=== PATIENT | male | born 1960 | race Caucasian/White ===

== ENCOUNTER 2017-09-04 12:23 | Inpatient (IN) | payer BC, OTHER ==
[2017-09-04] MEDS ORDERED: VANCOMYCIN HCL INJ 1000 MG VIAL IV ONE ×2 (12:50→15:38)
--- NOTE | 2017-09-04 12:51 | ER Document Report ---
ED Medical Screen (RME) - General Chief Complaint: Feet Swelling Stated Complaint: ANKLE SWELLING, STOMACH PAIN Time Seen by Provider: 09/04/17 12:43 Notes: RME DISCLOSURE I have seen this patient as part of a Rapid Medical Evaluation and, if applicable, placed any initially appropriate orders. The patient will be seen and fully evaluated, including a full history and physical exam, by a provider ( in Main ED or Fast Track) when a room becomes available. 57-year-old male here with complaints of bilateral leg swelling ongoing for the past few days as well as his left lower extremity toes turning blue. He states he has put on a significant amount of weight over the past few days but denies any history of CHF or kidney failure. He denies any history of atrial fibrillation but does state that he did have an episode of the toes on his right leg swelling several years ago however there was no cyanosis. His second complaint is redness of his abdomen that has been ongoing and progressively worsening for the past few days. He does not have any drainage from the area. He does have a history of MRSA abdominal infection in 2007 and states it involved his mesh hernia. EXAM Mild cyanosis of left lower extremity toes Moderate induration and erythema of lower abdominal wall without fluctuance TRAVEL OUTSIDE OF THE [place] IN LAST 30 DAYS: No - Related Data Allergies/Adverse Reactions: No Known Allergies Allergy (Unverified 09/04/17 12:47) Past Medical History Skin Medical History: Comment Only Hx MRSA - MRSA 02/10/08 ABDOMEN Physical Exam - Vital signs Vitals: Temp Pulse Resp BP Pulse Ox 98.0 F 82 21 H 146/81 H 92 09/04/17 12:36 09/04/17 12:36 09/04/17 12:36 09/04/17 12:36 09/04/17 12:36 Course - Vital Signs Vital signs: Temp Pulse Resp BP Pulse Ox 98.0 F 82 21 H 146/81 H 92 09/04/17 12:36 09/04/17 12:36 09/04/17 12:36 09/04/17 12:36 09/04/17 12:36
[2017-09-04 13:43] LABS: ABSOLUTE EOSINOPHILS # (AUTO) 0.2 10^3/uL (0.0-0.6); ABSOLUTE LYMPHOCYTES (AUTO) 1.1 10^3/uL (0.5-4.7); ABSOLUTE MONOCYTES (AUTO) 0.8 10^3/uL (0.1-1.4); ABSOLUTE NEUT (AUTO) 5.6 10^3/uL (1.7-8.2); BASOPHILS % (AUTO) 0.6 % (0-2); EOSINOPHILS % (AUTO) 2.6 % (0-6); HEMATOCRIT 45.7 % (37.9-51.0); HEMOGLOBIN 14.7 g/dL (13.5-17.0); LYMPHOCYTES % (AUTO) 14.6 % (13-45); MEAN CORPUSCULAR HEMOGLOBIN 29.1 pg (27.0-33.4); MEAN CORPUSCULAR HGB CONC 32.1 g/dL (32.0-36.0); MEAN CORPUSCULAR VOLUME 91 fl (80-97); MONOCYTES % (AUTO) 10.2 % (3-13); PLATELET COUNT 232 10^3/uL (150-450); RED BLOOD COUNT 5.03 10^6/uL (4.35-5.55); RED CELL DISTRIBUTION WIDTH 15.8 % (11.5-14.0); TOTAL CELLS COUNTED % (AUTO) 100 %; WHITE BLOOD COUNT 7.8 10^3/uL (4.0-10.5)
[2017-09-04 13:58] LABS: ALANINE AMINOTRANSFERASE 67 U/L (21-72); ALBUMIN 3.6 g/dL (3.5-5.0); ALKALINE PHOSPHATASE 57 U/L (38-126); ANION GAP 5 (5-19); ASPARTATE AMINO TRANSFERASE 48 U/L (17-59); BILIRUBIN,DIRECT 0.3 mg/dL (0.0-0.4); BILIRUBIN,TOTAL 0.3 mg/dL (0.2-1.3); BLOOD UREA NITROGEN 32 mg/dL (7-20); CARBON DIOXIDE 38 mmol/L (22-30); CHLORIDE 102 mmol/L (98-107); GLUCOSE 112 mg/dL (75-110); PHOSPHORUS 4.6 mg/dL (2.5-4.5); POTASSIUM 4.7 mmol/L (3.6-5.0); SODIUM 145.3 mmol/L (137-145); TOTAL PROTEIN 6.2 g/dL (6.3-8.2)
--- NOTE | 2017-09-04 14:30 | ER Document Report ---
ED General - General Chief Complaint: Feet Swelling Stated Complaint: ANKLE SWELLING, STOMACH PAIN Time Seen by Provider: 09/04/17 12:43 Notes: The patient is a 57-year-old male who presents with 2 separate complaints. He is concerned that his feet are having increased swelling and look purple over the past few days. In addition, he is having increased redness and pain of his abdominal wall also over the past few days. Patient says that he is having dyspnea on exertion and has had 25 pound weight gain over 2 days. Patient does not have a history of CHF, but he has not seen a doctor in 10 years. Patient denies chest pain, fevers, cough, hemoptysis, calf pain, nausea, vomiting, abdominal pain, numbness, tingling, diarrhea or constipation. TRAVEL OUTSIDE OF THE [place] IN LAST 30 DAYS: No - Related Data Allergies/Adverse Reactions: No Known Allergies Allergy (Unverified 09/04/17 12:47) Past Medical History - General Information source: Patient - Social History Smoking Status: Current Every Day Smoker Chew tobacco use (# tins/day): No Frequency of alcohol use: Occasional Drug Abuse: None Family History: Reviewed & Not Pertinent Patient has suicidal ideation: No Patient has homicidal ideation: No Renal/ Medical History: Denies: Hx Peritoneal Dialysis Skin Medical History: Comment Only Hx MRSA - MRSA 02/10/08 ABDOMEN Review of Systems - Review of Systems Notes: REVIEW OF SYSTEMS: CONSTITUTIONAL: -fevers, -chills EENT: -eye pain, -difficulty swallowing, -nasal congestion CARDIOVASCULAR: -chest pain, -syncope. RESPIRATORY: -cough, +REYES, +orthopnea GASTROINTESTINAL: +abdominal pain, -nausea, -vomiting, -diarrhea GENITOURINARY: -dysuria, -hematuria MUSCULOSKELETAL: +B/L leg pain and swelling, -back pain, -neck pain HEMATOLOGIC: -easy bruising or bleeding. LYMPHATIC: -swollen, enlarged glands. NEUROLOGICAL: -altered mental status or loss of consciousness, -headache, - neurologic symptoms PSYCHIATRIC: -anxiety, -depression. ALL OTHER SYSTEMS REVIEWED AND NEGATIVE. Physical Exam - Vital signs Vitals: Temp Pulse Resp BP Pulse Ox 98.0 F 82 21 H 146/81 H 92 09/04/17 12:36 09/04/17 12:36 09/04/17 12:36 09/04/17 12:36 09/04/17 12:36 - Notes Notes: PHYSICAL EXAMINATION: GENERAL: Uncomfortable. HEAD: Atraumatic, normocephalic. EYES: Pupils equal round and reactive to light, extraocular movements intact, sclera anicteric, conjunctiva are normal. ENT: nares patent, oropharynx clear without exudates. Moist mucous membranes. NECK: Normal range of motion, supple without lymphadenopathy LUNGS: Speaking in full sentences. Mild end-expiratory wheezing. HEART: Regular rate and rhythm without murmurs ABDOMEN: Soft, mild lower abdominal tenderness, normoactive bowel sounds. No guarding, no rebound. No masses appreciated. EXTREMITIES: 3+ pitting edema up to knees. Strong DP and PT pulses in bilateral feet. Mild cyanosis of toes. NEUROLOGICAL: Cranial nerves grossly intact. Normal speech, normal gait. Normal sensory and motor exams. PSYCH: Normal mood, normal affect. SKIN: Erythema over abdominal wall. Course - Re-evaluation Re-evalutation: Pt with abdominal wall cellulitis, but no abscess or intrabadominal abnormalities. Vancomycin started. Pt also appears very fluid overloaded with peripheral edema, dyspnea on exertion, elevated proBNP and cardiomegaly on chest x-ray. No history of CHF, but patient has not seen a doctor in over 10 years. Pt with a first troponin of 0.07, but patient is not having any chest pain and no old values to compare to. Ultrasound by vascular surgery physician does not show any evidence of DVTs or arterial occlusions in his legs. Patient requires admission for IV antibiotics for the abdominal wall cellulitis and further evaluation and treatment of possible new onset CHF. His PMD used to be in [place], [place]. 09/04/17 17:[address] Amalia Marshall (Hospitalist) and she will admit patient to [facility] as Inpatient for further evaluation and treatment. - Vital Signs Vital signs: Temp Pulse Resp BP Pulse Ox 98.0 F 82 21 H 157/89 H 95 09/04/17 12:36 09/04/17 12:36 09/04/17 17:23 09/04/17 15:22 09/04/17 15:22 - Laboratory Result Diagrams: 09/04/17 13:25 09/04/17 13:25 Laboratory results interpreted by me: 09/04/17 09/04/17 09/04/17 13:25 13:25 13:25 RDW 15.8 H Sodium 145.3 H Carbon Dioxide 38 H BUN 32 H Glucose 112 H Phosphorus 4.6 H NT-Pro-B Natriuret Pep 4120 H Total Protein 6.2 L - Diagnostic Test Radiology reviewed: Image reviewed, Reports reviewed Radiology results interpreted by me: CT A/P: DIFFUSE SUBCUTANEOUS STRANDING INVOLVING THE ABDOMINAL PANNUS COMPATIBLE WITH CELLULITIS. NO DRAINABLE FLUID COLLECTION/ABSCESS. LEFT-SIDED NEPHROLITHIASIS WITHOUT LOWER URINARY TRACT STONES OR HYDRONEPHROSIS. CXR: Marked cardiomegaly. NAD - EKG Interpretation by Me EKG shows normal: Sinus rhythm When compared to previous EKG there are: Previous EKG unavailable Additional EKG results interpreted by me: NSR, ventricular bigeminy, RBBB. No STEMI. Discharge - Discharge Clinical Impression: Abdominal wall cellulitis, Dyspnea on exertion, Edema, peripheral Condition: Stable Disposition: ADMITTED INPATIENT Admitting Provider: Hospitalist - Amalia [facility] Unit Admitted: Telemetry
--- NOTE | 2017-09-04 14:47 | RADIOLOGY REPORT (SQ) ---
EXAM DESCRIPTION: CT ABD/PELVIS WITH IV ONLY COMPLETED DATE/TIME: 09/04/2017 2:31 pm REASON FOR STUDY: pannus cellulitis, hx MRSA; eval abscess COMPARISON: None. TECHNIQUE: CT scan of the abdomen and pelvis performed using helical scanning technique with dynamic intravenous contrast injection. No oral contrast. Images reviewed with lung, soft tissue, and bone windows. Reconstructed coronal and sagittal MPR images reviewed. Delayed images for evaluation of the urinary system also acquired. All images stored on PACS. All CT scanners at this facility use dose modulation, iterative reconstruction, and/or weight based d osing when appropriate to reduce radiation dose to as low as reasonably achievable (ALARA). [facility]: Dose Right [facility]: CareDose [facility]: Dose Right [facility]: Teradose 4D [facility]: [employer] CONTRAST TYPE AND DOSE: contrast/concentration: Isovue 370.00 mg/ml; Total Contrast Delivered: 100.0 ml; Total Saline Delivered: 72.1 ml RENAL FUNCTION: Creatinine measures 1.08 RADIATION DOSE: CT Rad equipment meets quality standard of care and radiation dose reduction techniq ues were employed. CTDIvol: 21.1 mGy. DLP: 2479 mGy-cm.. LIMITATIONS: None. FINDINGS: LOWER CHEST: No significant findings. No nodules or infiltrates. LIVER: Normal size. No masses. No dilated ducts. SPLEEN: Normal size. No focal lesions. PANCREAS: No masses. No significant calcifications. No adjacent inflammation or peripancreatic fluid collections. Pancreatic duct not dilated. GALLBLADDER: Surgically absent. ADRENAL GLANDS: No significant masses or asymmetry. RIGHT KIDNEY AND URETER: No solid masses. No significant calcifications. No hydronephrosis or hyd roureter. LEFT KIDNEY AND URETER: No solid masses. Punctate nonobstructing calculi. No hydronephrosis or hy droureter. AORTA AND VESSELS: No aneurysm. No dissection. Renal arteries, SMA, celiac without stenosis. RETROPERITONEUM: No retroperitoneal adenopathy, hemorrhage or masses. BOWEL AND PERITONEAL CAVITY: No masses or inflammatory changes. No free fluid or peritoneal masses. APPENDIX: Not visualized. PELVIS: No mass. No free fluid. Normal bladder. ABDOMINAL WALL: No masses. Diffuse subcutaneous stranding involving the abdominal pannus. No draina ble fluid collection/abscess. Postoperative change related to prior hernia repair without gross comp lication. BONES: No significant or acute findings. OTHER: No other significant finding. IMPRESSION: DIFFUSE SUBCUTANEOUS STRANDING INVOLVING THE ABDOMINAL PANNUS COMPATIBLE WITH CELLULITIS . NO DRAINABLE FLUID COLLECTION/ABSCESS. LEFT-SIDED NEPHROLITHIASIS WITHOUT LOWER URINARY TRACT STONES OR HYDRONEPHROSIS. TECHNICAL DOCUMENTATION: JOB ID: [id number] Quality ID # [id number]: Final reports with documentation of one or more dose reduction techniques (e.g., Au tomated exposure control, adjustment of the mA and/or kV according to patient size, use of iterative reconstruction technique) 2010 [employer]- All Rights Reserved Reading location - IP/workstation name: [email or web address]
[2017-09-04] MEDS ORDERED: IPRATROPIUM/ALBUTEROL 0.5-2.5 MG/3 ML AMPUL NEB ONE (15:17)
[2017-09-04] MEDS ORDERED: FUROSEMIDE INJ/PF 40 MG/4 ML SDV IV ONE (15:37)
--- NOTE | 2017-09-04 16:04 | RADIOLOGY REPORT (SQ) ---
EXAM DESCRIPTION: CHEST SINGLE VIEW COMPLETED DATE/TIME: 09/04/2017 3:56 pm REASON FOR STUDY: cough COMPARISON: 01/20/2007 EXAM PARAMETERS: NUMBER OF VIEWS: One view. TECHNIQUE: Single frontal radiographic view of the chest acquired. RADIATION DOSE: NA LIMITATIONS: None. FINDINGS: LUNGS AND PLEURA: No opacities, masses or pneumothorax. No pleural effusion. MEDIASTINUM AND HILAR STRUCTURES: No masses. Contour normal. HEART AND VASCULAR STRUCTURES: Marked cardiomegaly. Normal vasculature. BONES: No acute findings. HARDWARE: None in the chest. OTHER: No other significant finding. IMPRESSION: NO ACUTE RADIOGRAPHIC FINDING IN THE CHEST. MARKED CARDIOMEGALY TECHNICAL DOCUMENTATION: JOB ID: [id number] [employer]- All Rights Reserved Reading location - IP/workstation name: [email or web address]
--- NOTE | 2017-09-04 17:17 | EKG REPORT ---
SEVERITY:- ABNORMAL ECG - SINUS RHYTHM VENTRICULAR BIGEMINY PROBABLE LEFT ATRIAL ABNORMALITY RIGHT BUNDLE BRANCH BLOCK : Confirmed by: Chelsea Gonzalez 04-Sep-2017 17:16:14
[2017-09-04] MEDS ORDERED: ONDANSETRON 4 MG TAB.RAPDIS PO PRN (18:46)
[2017-09-04] MEDS ORDERED: ACETAMINOPHEN 325 MG TABLET PO PRN (18:46)
[2017-09-04] MEDS ORDERED: ONDANSETRON HCL INJ/PF 4 MG/2 ML SDV IV PRN (18:46)
[2017-09-04] MEDS ORDERED: LOSARTAN POTASSIUM 25 MG TABLET PO ONE (19:00)
--- NOTE | 2017-09-04 19:02 | PDOC H&P ---
History of Present Illness Admission Date/PCP: 09/04/17 17:55 Dr. Dye Patient complains of: Dyspnea, leg swelling History of Present Illness: 57 yr old male with Obesity Asthma Nictine use OPAL not compliant with CPAP Osteoarthritis Outpatient medications: Tylenol, naproxen and ibuprofen as needed for joint pain. He reports having the flu in June and progressively worsening dyspnea, since then, with intermittent exertional chest pressure and recent pedal edema. Denies any fevers chills nausea abdominal pain or vomiting. No chest pain at present. He has also noticed redness of the abdominal wall. He appears to have new onset CHF. CAT scan of the abdomen and pelvis showed diffuse subcutaneous stranding involving the abdominal wall compatible with cellulitis with no drainable fluid or abscess. Lower extremity venous Dopplers showed no DVT. Chest x-ray showed cardiomegaly. He was given IV Lasix and vancomycin in the emergency room and referred for admission. Is a full code. Healthcare power of environmental attorney is his Lindsay. Phone #[phone]. His daughter is Matilde phone #[phone]. Past Medical History Pulmonary Medical History: Reports: Asthma, Bronchitis GI Medical History: Reports: Hiatal Hernia Social History Information Source: Patient Smoking Status: Current Every Day Smoker Frequency of Alcohol Use: Occasional Hx Recreational Drug Use: No Family History Family History: Hypertension Parental Family History Reviewed: Yes Children Family History Reviewed: Yes Sibling(s) Family History Reviewed.: Yes Medication/Allergy Home Medications: No Home Medications 09/04/17 Allergies/Adverse Reactions: No Known Allergies Allergy (Unverified 09/04/17 12:47) Review of Systems Constitutional: ABSENT: fever(s) Eyes: ABSENT: visual disturbances Ears: ABSENT: hearing changes Nose, Mouth, and Throat: ABSENT: mouth pain Cardiovascular: PRESENT: dyspnea on exertion, edema Respiratory: PRESENT: dyspnea Gastrointestinal: ABSENT: abdominal pain, diarrhea Genitourinary: ABSENT: dysuria Musculoskeletal: ABSENT: deformity Integumentary: ABSENT: pruritus Neurological: ABSENT: focal weakness Psychiatric: ABSENT: hallucinations Endocrine: ABSENT: heat intolerance Hematologic/Lymphatic: ABSENT: easy bruising Allergic/Immunologic: ABSENT: seasonal rhinorrhea Physical Exam Vital Signs: Temp Pulse Resp BP Pulse Ox 98.0 F 82 21 H 157/89 H 95 09/04/17 12:36 09/04/17 12:36 09/04/17 17:23 09/04/17 15:22 09/04/17 15:22 General appearance: PRESENT: obese Head exam: PRESENT: normocephalic Eye exam: PRESENT: PERRLA. ABSENT: scleral icterus Ear exam: PRESENT: normal external ear exam Mouth exam: PRESENT: moist Neck exam: ABSENT: carotid bruit Respiratory exam: PRESENT: rhonchi, symmetrical. ABSENT: crackles Cardiovascular exam: PRESENT: RRR GI/Abdominal exam: PRESENT: normal bowel sounds, soft, other - diffuse abdominal wall erythema and mild induration Rectal exam: PRESENT: deferred Extremities exam: PRESENT: pedal edema. ABSENT: calf tenderness Neurological exam: PRESENT: alert, awake, oriented to person, oriented to place , oriented to time Psychiatric exam: PRESENT: appropriate affect Skin exam: ABSENT: rash Results Impressions: Abdomen/Pelvis CT 09/04/17 12:49 IMPRESSION: DIFFUSE SUBCUTANEOUS STRANDING INVOLVING THE ABDOMINAL PANNUS COMPATIBLE WITH CELLULITIS. NO DRAINABLE FLUID COLLECTION/ABSCESS. LEFT-SIDED NEPHROLITHIASIS WITHOUT LOWER URINARY TRACT STONES OR HYDRONEPHROSIS. Chest X-Ray 09/04/17 15:23 IMPRESSION: NO ACUTE RADIOGRAPHIC FINDING IN THE CHEST. MARKED CARDIOMEGALY Assessment & Plan - Diagnosis (1) Acute CHF Qualifiers: Heart failure type: systolic Qualified Code(s): I50.21 - Acute systolic ( congestive) heart failure Is this a current diagnosis for this admission?: Yes Plan: Check echocardiogram. Monitor intake and output. IV Lasix. Start losartan. Monitor on telemetry. Serial Cardiac enzymes. Aspirin. Check lipid panel and hemoglobin A1c. (2) Abdominal wall cellulitis Is this a current diagnosis for this admission?: Yes Plan: Ancef IV (3) OPAL (obstructive sleep apnea) Is this a current diagnosis for this admission?: Yes Plan: CPAP at night (4) Nicotine dependence Is this a current diagnosis for this admission?: Yes Plan: Nicotine patch prn (5) DVT prophylaxis Is this a current diagnosis for this admission?: Yes Plan: Subcutaneous Lovenox - Time Time Spent: Greater than 70 Minutes
[2017-09-04] MEDS: TRAMADOL HCL 50 MG TABLET PO PRN (22:11)
[2017-09-04] MEDS: FUROSEMIDE INJ/PF 100 MG/10 ML SDV IV SCH (22:15)
[2017-09-04] MEDS: CEFAZOLIN 1 GM/D5W RTU 1 GM/50 ML RTUPB IV SCH (22:16)
[2017-09-05] MEDS: LEVALBUTEROL HCL NEB 0.63 MG/3 ML AMPUL NEB PRN ×2 (04:45→15:31)
[2017-09-05] MEDS: CEFAZOLIN 1 GM/D5W RTU 1 GM/50 ML RTUPB IV SCH ×3 (05:28→21:28)
[2017-09-05 06:36] LABS: BLOOD UREA NITROGEN 26 mg/dL (7-20); CALCIUM 8.9 mg/dL (8.4-10.2); CHLORIDE 98 mmol/L (98-107); CHOLESTEROL 120.43 mg/dL (0-200); GLUCOSE 115 mg/dL (75-110); PHOSPHORUS 5.5 mg/dL (2.5-4.5); POTASSIUM 4.4 mmol/L (3.6-5.0); SODIUM 143.2 mmol/L (137-145); TRIGLYCERIDES 145 mg/dL (<150)
[2017-09-05 06:42] LABS: ANION GAP 7 (5-19); CARBON DIOXIDE 38 mmol/L (22-30); INTERNATIONAL RATION (INR) 0.95; PROTHROMBIN TIME 13.1 SEC (11.4-15.4)
[2017-09-05 06:46] LABS: DIRECT LDL 41 mg/dL (<100)
--- NOTE | 2017-09-05 10:25 | XCELERA REPORT ---
[address] [address] Lower Extremity Venous Evaluation Name: GAIL BOYER Age: 57 yrs Gender: Male : 1960 Patient Status: Emergency Patient Location: ER Study Date: 09/04/2017 04:37 PM Procedure: Color flow and duplex imaging bilaterally of the veins of the lower extremities as well as the Common Femoral veins. Reason For Study: BLE swelling; eval DVT Ordering Physician: MUSA NICOLAS Performed By: Azalia Castaneda Right Sided Venous Evaluation Parts of the Femoral vein not well seen, due to body habitus. Normal vessel filling wall to wall, compression and augmentation as well as Colour flow down to the infrageniculate veins. Left Sided Venous Evaluation Parts of the Femoral vein not well seen, due to body habitus. Normal vessel filling wall to wall, compression and augmentation as well as Colour flow down to the infrageniculate veins. Interpretation Summary No duplex evidence of DVT or obstruction in the bilateral lower extremities. : MUSA NICOLAS [place]
--- NOTE | 2017-09-05 10:27 | XCELERA REPORT ---
[address] [address] Lower Extremity Arterial Evaluation Name: GAIL BOYER Age: 57 yrs Gender: Male : 1960 Patient Status: Emergency Patient Location: ER Study Date: 09/04/2017 04:59 PM Procedure: A color flow and duplex scan of the lower extremity arteries was performed bilaterally with velocity and waveform anaylsis. Reason For Study: LLE cyanosis; eval thrombus Ordering Physician: MUSA NICOLAS Performed By: Azalia Castaneda Measurements and Calculations Right Left FORMING YARDAGE CONTROL OPERATOR PSV 124.1 132.4 cm/sec Prox PFA PSV -124.1 116.1 cm/sec Prox SFA PSV 146.9 173.7 cm/sec Mid SFA PSV -139.1 -113.1 cm/sec Prox Pop A PSV 86.0 88.0 cm/sec Dist ALBERT PSV 45.3 35.2 cm/sec Dist CONTENT STRATEGY LEAD PSV 103.1 -100.6 cm/sec Kelechi Pedis PSV 53.4 71.3 cm/sec Right Side Arterial Evaluation Normal velocity and triphasic waveforms noted from the Common Femoral artery to the infrageniculate vessels. 0 % stenosis . Ankle Brachial index was not evaluated. Left Side Arterial Evaluation Normal velocity and triphasic waveforms noted from the Common Femoral artery to the infrageniculate vessels. Retrograde flow in the Dorsalis Pedis. 0 % stenosis . Ankle Brachial index was not evaluated. Interpretation Summary No hemodynamically significant lesions in the bilateral lower extremities, on duplex imaging, at rest. : MUSA NICOLAS [place]
[2017-09-05] MEDS: FUROSEMIDE INJ/PF 100 MG/10 ML SDV IV SCH ×2 (10:57→21:29)
[2017-09-05] MEDS: LACTOBACILLUS ACIDOPHILUS 250 MG TAB PO SCH ×2 (10:57→18:34)
[2017-09-05] MEDS: LOSARTAN POTASSIUM 25 MG TABLET PO SCH (10:57)
[2017-09-05] MEDS: ENOXAPARIN SODIUM INJ 30 MG/0.3 ML DISP.SYRIN SUBCUT SCH (10:57)
--- NOTE | 2017-09-05 11:28 | PDOC CONSULTATION ---
Consultation Consult Date: 09/04/17 Attending physician:: LOBITO BETH Consult reason:: CHF History of Present Illness Admission Date/PCP: 09/04/17 17:55 Patient complains of: Shortness of breath, progressive leg edema and also redness of the abdominal wall History of Present Illness: GAIL BOYER is a 57 year old male who presents with 2 separate complaints. He is concerned that his feet are having increased swelling and look purple over the past few days. In addition, he is having increased redness and pain of his abdominal wall also over the past few days. Patient says that he is having dyspnea on exertion and has had 25 pound weight gain over 2 days. Patient does not have a history of CHF, but he has not seen a doctor in 10 years. Patient denies chest pain, fevers, cough, hemoptysis, calf pain, nausea , vomiting, abdominal pain, numbness, tingling, diarrhea or constipation. This history obtained by the ER physician was reviewed and confirmed. Patient claims that his symptoms started several weeks ago with progressive leg swelling, shortness of breath. He however denied any chest pain. More recently his symptoms has worsened. Also over the last 2 days, he has noted some abdominal discomfort and redness as well as pain over his abdominal wall. Patient has noted some low-grade fever. Patient has history of sleep apnea syndrome. He claims that he had severe obstructive sleep apnea but could not afford therapy as he lost insurance. Patient has also noted some progressive weight gain. Past Medical History Pulmonary Medical History: Reports: Asthma, Bronchitis GI Medical History: Reports: Hiatal Hernia Social History Information Source: Patient Smoking Status: Current Every Day Smoker Frequency of Alcohol Use: Occasional Hx Recreational Drug Use: No - Advance Directive Resuscitation Status: Full Code Surrogate healthcare decision maker:: Patient's is the surrogate decision-maker Family History Family History: Hypertension Parental Family History Reviewed: Yes Children Family History Reviewed: Yes Sibling(s) Family History Reviewed.: Yes Medication/Allergy Home Medications: No Home Medications 09/04/17 Allergies/Adverse Reactions: No Known Allergies Allergy (Unverified 09/04/17 12:47) Review of Systems Review of Systems: Please see history of present illness and past medical history as wall. Constitutional: Low-grade fever or chills reported. Head : No recent chronic headaches, recent head injury. Eyes: No recent eye pain, diplopia, redness, discharge, acute visual changes. Ears: No recent chronic ear pain, acute hearing loss, ear discharge. Oral cavity: No recent ulcerations, bleeding, oral cavity discomfort. Neck: No recent acute neck pain reported. Hematologic: No recent easy bruising or bleeding. Lymphatic: No recent lymph node enlargement reported. Cardiovascular system review: See history of present illness. Respiratory system review: Patient has noted some cough especially on laying down, waking up gasping for breath, no hemoptysis or blood clots in the lungs reported. Shortness of breath on exertion Gastrointestinal system review: Negative for any recent acute hematemesis, melena. Abdominal pain reported as noted above. Genitourinary system review: No recent acute or chronic hematuria, flank pain, UTI etc. reported. Skin system review: Negative for any recent abnormal bruising, no rash, no pruritus reported. Neurologic: No prior history of strokes, mini strokes, seizure disorder. Psychologic: No history of major psychosis or major depression reported. Musculoskeletal: Minor aches and pains reported. No acute joint swelling reported. Endocrine: No recent polyuria, polydipsia, recent heat or cold intolerance. Physical Exam Vital Signs: Temp Pulse Resp BP Pulse Ox 98.0 F 82 21 H 157/89 H 95 09/04/17 12:36 09/04/17 12:36 09/04/17 17:23 09/04/17 15:22 09/04/17 15:22 Exam: GENERAL: well-nourished and in no acute distress. Alert and oriented x3 HEAD: Atraumatic, normocephalic. EYES: Pupils equal round and reactive to light, extraocular movements intact, sclera anicteric, conjunctiva are normal. ENT: TMs normal, nares patent, oropharynx clear without exudates. Moist mucous membranes. No oral ulcerations or bleeding gums noted NECK: supple without lymphadenopathy. Trachea is central. No cervical or axillary lymphadenopathy noted. Carotids are 2+, JVD distended, could not be accurately assessed because of thick neck. LUNGS: Respiration seems nonlabored, no significant accessory muscle action noted. Bibasilar fine crackles are noted. No wheezes rales or rhonchi noted. No significant dullness noted on percussion. CHEST: Palpation of the chest wall shows no significant chest wall tenderness. HEART: [place] [employer], No PSH, 1/6 PRAVIN aortic area, 1/6 pedraza systolic murmur mitral area, no rubs, no gallops. ABDOMEN: Soft, no significant tenderness appreciated, normoactive bowel sounds. No guarding, no rebound. No rigidity noted . No masses appreciated. EXTREMITIES: Pedal pulses are 1-2+, no calf tenderness noted. No clubbing or cyanosis. 2+ pedal edema noted NEUROLOGICAL: Focused neurological exam showed no significant neurologic deficit. Normal speech, no focal weakness appreciated. PSYCH: Normal mood, normal affect. Judgment and insight within normal limits. SKIN: No significant ecchymosis, skin is noted to be warm. Erythematous rash noted over the abdominal wall consistent with cellulitis. MUSCULOSKELETAL EXAM: No significant acute joint swelling noted. Results EKG Comments: Sinus rhythm, frequent ventricular ectopy, minor nonspecific ST-T wave changes Impressions: Abdomen/Pelvis CT 09/04/17 12:49 IMPRESSION: DIFFUSE SUBCUTANEOUS STRANDING INVOLVING THE ABDOMINAL PANNUS COMPATIBLE WITH CELLULITIS. NO DRAINABLE FLUID COLLECTION/ABSCESS. LEFT-SIDED NEPHROLITHIASIS WITHOUT LOWER URINARY TRACT STONES OR HYDRONEPHROSIS. Chest X-Ray 09/04/17 15:23 IMPRESSION: NO ACUTE RADIOGRAPHIC FINDING IN THE CHEST. MARKED CARDIOMEGALY Assessment & Plan - Diagnosis (1) Congestive heart failure (CHF) Qualifiers: Heart failure type: unspecified Heart failure chronicity: acute on chronic Qualified Code(s): I50.9 - Heart failure, unspecified Is this a current diagnosis for this admission?: Yes (2) Abdominal wall cellulitis Is this a current diagnosis for this admission?: Yes (3) Dyspnea on exertion Is this a current diagnosis for this admission?: Yes (4) Edema, peripheral Is this a current diagnosis for this admission?: Yes (5) OPAL (obstructive sleep apnea) Is this a current diagnosis for this admission?: Yes (6) Obesity Qualifiers: Obesity type: unspecified obesity type Obesity classification: unspecified obesity classification Is this a current diagnosis for this admission?: Yes - Notes Notes: Congestive heart failure: Seems predominantly right-sided. This is based on chest x-ray and CT scan reviewed. At this point agree with IV diuretics. Recommend 2D echocardiogram. Although chest x-ray shows suggestion that patient may have pericardial effusion, abdominal CT which did show a portion of the heart does not suggest pericardial effusion being present. Agree with diuretic therapy, salt and fluid restriction, positive pressure noninvasive ventilation. May also consider arterial blood gases. Abdominal wall cellulitis: Continue with antibiotic therapy. Dyspnea on exertion: Related to CHF, patient may have underlying COPD, obesity also contributing. Pedal edema: Most likely related to CHF with some venous insufficiency and dependency contributing. Obstructive sleep apnea: Patient felt to have severe obstructive sleep apnea. Nightly CPAP therapy was ordered yesterday. Will try to obtain previous sleep apnea evaluation results. Obesity: Patient noted to have superobesity. Patient will benefit from aggressive weight loss. Discussed that weight loss will help multitudes of his problem - Time Time Spent: 30 to 50 Minutes Medications reviewed and adjusted accordingly: Yes
[2017-09-05 15:08] LABS: ARTERIAL BLOOD BASE EXCESS 12.7 mmol/L; ARTERIAL BLOOD HCO3 46.2 mmol/L (20-26); ARTERIAL BLOOD O2 SATURATION 66.2 % (94-98); ARTERIAL BLOOD PH 7.22 (7.35-7.45); ARTERIAL BLOOD PO2 43.8 mmHg (80-100); ARTERIAL BLOOD TOTAL CO2 49.8 mmol/L (23-27)
[2017-09-05 15:13] LABS: ARTERIAL BLOOD FIO2 6L
[2017-09-05 15:14] LABS: ARTERIAL BLOOD PCO2 116.3 mmHg (35-45)
[2017-09-05] MEDS ORDERED: MAGNESIUM SULFATE/D5W 1 GM/100 ML RTUPB IV ONE (17:00)
--- NOTE | 2017-09-05 17:11 | PDOC PROGRESS REPORT ---
Subjective Progress Note for:: 09/05/17 Subjective:: Very somnolent and difficult to arouse with peripheral cyanosis. ABG shows resp acidosis. BiPAP started at 3 :30 pm. Repeat ABG pending. Echo pending. Suspect pulmonary hypertension Reason For Visit: NEW ONSET CHF, ABDOMINAL WALL CELLULITIS Physical Exam Vital Signs: Temp Pulse Resp BP Pulse Ox 97.6 F 62 16 132/54 H 94 09/05/17 07:48 09/05/17 07:48 09/05/17 07:48 09/05/17 07:48 09/05/17 07:48 Intake & Output 09/04/17 09/05/17 09/06/17 06:59 06:59 06:59 Intake Total 800 Output Total 2500 Balance -1700 Weight 166 kg General appearance: PRESENT: morbidly obese Head exam: PRESENT: normocephalic Neck exam: PRESENT: JVD Respiratory exam: PRESENT: prolonged expiratory phas, symmetrical. ABSENT: crackles Cardiovascular exam: PRESENT: RRR GI/Abdominal exam: PRESENT: normal bowel sounds, soft. ABSENT: tenderness Rectal exam: PRESENT: deferred Extremities exam: PRESENT: pedal edema. ABSENT: calf tenderness Neurological exam: PRESENT: altered Psychiatric exam: PRESENT: other - unable to assess Skin exam: PRESENT: other - abdominal wall cellulitis improving Results Laboratory Results: 09/05/17 06:08 09/05/17 09/05/17 09/05/17 06:08 06:08 14:48 Carbonic Acid 3.50 H HCO3/H2CO3 Ratio 13:1 ABG pH 7.22 L ABG pCO2 116.3 H* ABG pO2 43.8 L ABG HCO3 46.2 H ABG O2 Saturation 66.2 L ABG Base Excess 12.7 FiO2 6L Sodium 143.2 Potassium 4.4 Chloride 98 Carbon Dioxide 38 H Anion Gap 7 BUN 26 H Creatinine 0.94 Est GFR ( Amer) > 60 Est GFR (Non-Af Amer) > 60 Glucose 115 H Calcium 8.9 Phosphorus 5.5 H Magnesium 1.8 Triglycerides 145 Cholesterol 120.43 LDL Cholesterol Direct 41 VLDL Cholesterol 29.0 HDL Cholesterol 42 TSH 1.29 09/04/17 09/04/17 09/05/17 23:48 23:48 06:08 Creatine Kinase 110 104 Troponin I 0.069 NT-Pro-B Natriuret Pep 09/05/17 09/05/17 09/05/17 06:08 06:08 11:43 Creatine Kinase 84 Troponin I 0.060 NT-Pro-B Natriuret Pep 3770 H 09/05/17 11:43 Creatine Kinase Troponin I 0.047 NT-Pro-B Natriuret Pep Impressions: Abdomen/Pelvis CT 09/04/17 12:49 IMPRESSION: DIFFUSE SUBCUTANEOUS STRANDING INVOLVING THE ABDOMINAL PANNUS COMPATIBLE WITH CELLULITIS. NO DRAINABLE FLUID COLLECTION/ABSCESS. LEFT-SIDED NEPHROLITHIASIS WITHOUT LOWER URINARY TRACT STONES OR HYDRONEPHROSIS. Chest X-Ray 09/04/17 15:23 IMPRESSION: NO ACUTE RADIOGRAPHIC FINDING IN THE CHEST. MARKED CARDIOMEGALY Assessment & Plan - Diagnosis (1) Acute hypercapnic respiratory failure Is this a current diagnosis for this admission?: Yes Plan: BiPAP, monitor ABG (2) Acute CHF Qualifiers: Heart failure type: right-sided Qualified Code(s): I50.811 - Acute right heart failure Is this a current diagnosis for this admission?: Yes Plan: Echocardiogram pending Monitor intake and output. Continue IV Lasix and losartan. Monitor on telemetry. Serial Cardiac enzymes. Aspirin. Check lipid panel and hemoglobin A1c. cardiology input appreciated (3) Abdominal wall cellulitis Is this a current diagnosis for this admission?: Yes Plan: Day 2 of Ancef IV (4) OPAL (obstructive sleep apnea) Is this a current diagnosis for this admission?: Yes Plan: On BiPAP (5) Nicotine dependence Is this a current diagnosis for this admission?: Yes Plan: Nicotine patch prn (6) DVT prophylaxis Is this a current diagnosis for this admission?: Yes Plan: Subcutaneous Lovenox - Time Time Spent with patient: 35 or more minutes
[2017-09-05] MEDS ORDERED: ROFLUMILAST 500 MCG TABLET PO ONE (17:45)
[2017-09-05 18:10] LABS: ARTERIAL BLOOD BASE EXCESS 8.6 mmol/L; ARTERIAL BLOOD H2CO3 2.67 mmol/L (1.05-1.35); ARTERIAL BLOOD HCO3 39.3 mmol/L (20-26); ARTERIAL BLOOD O2 SATURATION 93.5 % (94-98); ARTERIAL BLOOD PH 7.27 (7.35-7.45); ARTERIAL BLOOD PO2 80.5 mmHg (80-100)
[2017-09-05 18:11] LABS: ARTERIAL BLOOD FIO2 40%
[2017-09-05 18:19] LABS: ARTERIAL BLOOD PCO2 88.6 mmHg (35-45)
[2017-09-05] MEDS: MAGNESIUM OXIDE 400 MG TABLET PO SCH (18:34)
[2017-09-05] MEDS: BUDESONIDE NEB 0.5 MG/2 ML AMPUL NEB SCH (21:52)
[2017-09-05 22:41] LABS: ARTERIAL BLOOD BASE EXCESS 10.1 mmol/L; ARTERIAL BLOOD FIO2 40%; ARTERIAL BLOOD H2CO3 2.82 mmol/L (1.05-1.35); ARTERIAL BLOOD HCO3 41.3 mmol/L (20-26); ARTERIAL BLOOD O2 SATURATION 94.7 % (94-98); ARTERIAL BLOOD PH 7.26 (7.35-7.45); ARTERIAL BLOOD PO2 87.8 mmHg (80-100); ARTERIAL BLOOD TOTAL CO2 44.2 mmol/L (23-27)
[2017-09-05 22:43] LABS: ARTERIAL BLOOD PCO2 93.8 mmHg (35-45)
[2017-09-06] MEDS: CEFAZOLIN 1 GM/D5W RTU 1 GM/50 ML RTUPB IV SCH ×2 (05:10→13:51)
[2017-09-06 06:17] LABS: ARTERIAL BLOOD BASE EXCESS 3.5 mmol/L; ARTERIAL BLOOD H2CO3 2.13 mmol/L (1.05-1.35); ARTERIAL BLOOD HCO3 32.7 mmol/L (20-26); ARTERIAL BLOOD O2 SATURATION 70.8 % (94-98); ARTERIAL BLOOD PH 7.28 (7.35-7.45); ARTERIAL BLOOD PO2 42.7 mmHg (80-100); ARTERIAL BLOOD TOTAL CO2 34.8 mmol/L (23-27)
[2017-09-06 06:18] LABS: ARTERIAL BLOOD FIO2 30%
[2017-09-06 06:31] LABS: BLOOD UREA NITROGEN 30 mg/dL (7-20); CALCIUM 8.8 mg/dL (8.4-10.2); CHLORIDE 96 mmol/L (98-107); GLUCOSE 117 mg/dL (75-110); POTASSIUM 4.6 mmol/L (3.6-5.0); SODIUM 143.4 mmol/L (137-145)
[2017-09-06 06:34] LABS: ARTERIAL BLOOD PCO2 70.6 mmHg (35-45)
[2017-09-06 06:38] LABS: ANION GAP 8 (5-19); CARBON DIOXIDE 39 mmol/L (22-30)
[2017-09-06] MEDS: BUDESONIDE NEB 0.5 MG/2 ML AMPUL NEB SCH ×2 (08:19→20:39)
[2017-09-06] MEDS: LACTOBACILLUS ACIDOPHILUS 250 MG TAB PO SCH ×2 (09:27→17:32)
[2017-09-06] MEDS: MAGNESIUM OXIDE 400 MG TABLET PO SCH ×2 (09:28→17:33)
[2017-09-06] MEDS: LOSARTAN POTASSIUM 25 MG TABLET PO SCH (09:28)
[2017-09-06] MEDS: ENOXAPARIN SODIUM INJ 30 MG/0.3 ML DISP.SYRIN SUBCUT SCH (09:29)
[2017-09-06] MEDS: FUROSEMIDE INJ/PF 100 MG/10 ML SDV IV SCH ×2 (09:29→21:16)
[2017-09-06 10:10] LABS: PHOSPHORUS 4.8 mg/dL (2.5-4.5)
[2017-09-06] MEDS: TRAMADOL HCL 50 MG TABLET PO PRN (10:57)
--- NOTE | 2017-09-06 12:00 | PDOC PROGRESS REPORT ---
Subjective Progress Note for:: 09/05/17 Subjective:: Still dysneic but better. Patient seems to be doing better with gradual improvement. Pt is denying any chest arm or neck discomfort. Patient denying any PND, orthopnea. Patient denied any sustained palpitations, dizziness, syncope, near syncope. Patient denying any fever chills. Patient denying any other significant discomfort. Patient is maintaining sinus rhythm. Review of systems: Rest review of systems negative. Medications: Medications have been reviewed. Reason For Visit: NEW ONSET CHF, ABDOMINAL WALL CELLULITIS Physical Exam Vital Signs: Temp Pulse Resp BP Pulse Ox 98.6 F 92 18 131/49 H 96 09/05/17 19:31 09/05/17 21:52 09/05/17 21:52 09/05/17 19:31 09/05/17 21:52 Pulse Oximeter Continuous Start: 09/05/17 17: 15 Freq: RTQ4 Status: Active Document 09/05/17 21:52 [facility] (Rec: 09/05/17 23:44 [facility] [id number]) Pulse Oximetry Assessment Oxygen Saturation (92-100) 96 Oxygen Delivery Method AVAP Fraction of Inspired Oxygen (FIO2) 30 Equipment Usage Equipment in Use Continuous Pulse Oximeter 24 Hour Charge Charge Now Continuous SpO2 Machine # [id number] Intake & Output 09/04/17 09/05/17 09/06/17 06:59 06:59 06:59 Intake Total 800 1879 Output Total 2500 Balance -1700 1879 Weight 166 kg Exam: GENERAL: well-nourished and in no acute distress. Alert and oriented x3 HEAD: Atraumatic, normocephalic. EYES: Pupils equal round and reactive to light, extraocular movements intact, sclera anicteric, conjunctiva are normal. ENT: TMs normal, nares patent, oropharynx clear without exudates. Moist mucous membranes. No oral ulcerations or bleeding gums noted NECK: supple without lymphadenopathy. Trachea is central. No cervical or axillary lymphadenopathy noted. Carotids are 2+, JVD 10 cm LUNGS: Respiration seems nonlabored, no significant accessory muscle action noted. Bibasilar fine crackles noted. No wheezes rales or rhonchi noted. No significant dullness noted on percussion. CHEST: Palpation of the chest wall shows no significant chest wall tenderness. HEART: [place] [employer], No PSH, 1/6 PRAVIN aortic area, 1/6 pedraza systolic murmur mitral area, no rubs, no gallops. ABDOMEN: Soft, no significant tenderness appreciated, normoactive bowel sounds. No guarding, no rebound. No rigidity noted . No masses appreciated. Cellulitis findings noted. EXTREMITIES: Pedal pulses are 1-2+, no calf tenderness noted. No clubbing or cyanosis. 2+ pedal edema noted NEUROLOGICAL: Focused neurological exam showed no significant neurologic deficit. Normal speech, no focal weakness appreciated. PSYCH: Normal mood, normal affect. Judgment and insight within normal limits. SKIN: No significant ecchymosis, skin is noted to be warm. Cellulitis noted of the abdominal wall. MUSCULOSKELETAL EXAM: No significant acute joint swelling noted. Results Laboratory Results: 09/05/17 06:08 09/05/17 09/05/17 09/05/17 06:08 06:08 14:48 Carbonic Acid 3.50 H HCO3/H2CO3 Ratio 13:1 ABG pH 7.22 L ABG pCO2 116.3 H* ABG pO2 43.8 L ABG HCO3 46.2 H ABG O2 Saturation 66.2 L ABG Base Excess 12.7 FiO2 6L Sodium 143.2 Potassium 4.4 Chloride 98 Carbon Dioxide 38 H Anion Gap 7 BUN 26 H Creatinine 0.94 Est GFR ( Amer) > 60 Est GFR (Non-Af Amer) > 60 Glucose 115 H Calcium 8.9 Phosphorus 5.5 H Magnesium 1.8 Triglycerides 145 Cholesterol 120.43 LDL Cholesterol Direct 41 VLDL Cholesterol 29.0 HDL Cholesterol 42 TSH 1.29 09/05/17 09/05/17 17:40 21:50 Carbonic Acid 2.67 H 2.82 H HCO3/H2CO3 Ratio 14:1 14:1 ABG pH 7.27 L 7.26 L ABG pCO2 88.6 H* 93.8 H* ABG pO2 80.5 87.8 ABG HCO3 39.3 H 41.3 H ABG O2 Saturation 93.5 L 94.7 ABG Base Excess 8.6 10.1 FiO2 40% 40% Sodium Potassium Chloride Carbon Dioxide Anion Gap BUN Creatinine Est GFR ( Amer) Est GFR (Non-Af Amer) Glucose Calcium Phosphorus Magnesium Triglycerides Cholesterol LDL Cholesterol Direct VLDL Cholesterol HDL Cholesterol TSH 09/04/17 09/04/17 09/05/17 23:48 23:48 06:08 Creatine Kinase 110 104 Troponin I 0.069 NT-Pro-B Natriuret Pep 09/05/17 09/05/17 09/05/17 06:08 06:08 11:43 Creatine Kinase 84 Troponin I 0.060 NT-Pro-B Natriuret Pep 3770 H 09/05/17 11:43 Creatine Kinase Troponin I 0.047 NT-Pro-B Natriuret Pep Impressions: Abdomen/Pelvis CT 09/04/17 12:49 IMPRESSION: DIFFUSE SUBCUTANEOUS STRANDING INVOLVING THE ABDOMINAL PANNUS COMPATIBLE WITH CELLULITIS. NO DRAINABLE FLUID COLLECTION/ABSCESS. LEFT-SIDED NEPHROLITHIASIS WITHOUT LOWER URINARY TRACT STONES OR HYDRONEPHROSIS. Chest X-Ray 09/04/17 15:23 IMPRESSION: NO ACUTE RADIOGRAPHIC FINDING IN THE CHEST. MARKED CARDIOMEGALY Assessment & Plan - Diagnosis (1) Congestive heart failure (CHF) Qualifiers: Heart failure type: unspecified Heart failure chronicity: acute on chronic Qualified Code(s): I50.9 - Heart failure, unspecified Is this a current diagnosis for this admission?: Yes (2) Abdominal wall cellulitis Is this a current diagnosis for this admission?: Yes (3) Dyspnea on exertion Is this a current diagnosis for this admission?: Yes (4) Edema, peripheral Is this a current diagnosis for this admission?: Yes (5) OPAL (obstructive sleep apnea) Is this a current diagnosis for this admission?: Yes (6) Obesity Qualifiers: Obesity type: unspecified obesity type Obesity classification: unspecified obesity classification Is this a current diagnosis for this admission?: Yes - Notes Notes: He still has significant fluid overload. Continue with IV diuretic therapy. 2D echocardiogram still pending. Patient will benefit from continued nightly CPAP/BiPAP therapy. Patient will also benefit from significant weight loss. Congestive heart failure: Seems predominantly right-sided. This is based on chest x-ray and CT scan reviewed. At this point agree with IV diuretics. Recommend 2D echocardiogram. Although chest x-ray shows suggestion that patient may have pericardial effusion, abdominal CT which did show a portion of the heart does not suggest pericardial effusion being present. Agree with diuretic therapy, salt and fluid restriction, positive pressure noninvasive ventilation. May also consider arterial blood gases. Abdominal wall cellulitis: Continue with antibiotic therapy. Dyspnea on exertion: Related to CHF, patient may have underlying COPD, obesity also contributing. Pedal edema: Most likely related to CHF with some venous insufficiency and dependency contributing. Obstructive sleep apnea: Patient felt to have severe obstructive sleep apnea. Continue with nightly CPAP therapy. Will try to obtain previous sleep apnea evaluation results. Obesity: Patient noted to have superobesity. Patient will benefit from aggressive weight loss. Discussed that weight loss will help multitudes of his problem - Time Time with patient: Greater than 35 minutes - CODE STATUS was discussed, patient remains full code. Surrogate decision-maker unchanged. Multiple medical problems were addressed. More than 50% of the time spent coordinating care, discussing management plans with involved caregivers. Management plans discussed with involved personnels. Medical decision making was of moderate to high complexity, patient's has multiple comorbidities. Medications reviewed and adjusted accordingly: Yes
--- NOTE | 2017-09-06 12:02 | PDOC PROGRESS REPORT ---
Subjective Progress Note for:: 09/06/17 Subjective:: Still dysneic but better. Still has significant generalized edema. Patient seems to be doing better with gradual improvement. Pt is denying any chest arm or neck discomfort. Patient denying any PND, orthopnea. Patient denied any sustained palpitations, dizziness, syncope, near syncope. Patient denying any fever chills. Patient denying any other significant discomfort. Patient is maintaining sinus rhythm. Review of systems: Rest review of systems negative. Medications: Medications have been reviewed. Reason For Visit: NEW ONSET CHF, ABDOMINAL WALL CELLULITIS Physical Exam Vital Signs: Temp Pulse Resp BP Pulse Ox 98.3 F 84 12 153/82 H 89 L 09/06/17 11:27 09/06/17 11:27 09/06/17 11:27 09/06/17 11:27 09/06/17 11:27 Pulse Oximeter Continuous Start: 09/05/17 17: 15 Freq: RTQ4 Status: Active Document 09/06/17 08:18 [facility] [place] (Rec: 09/06/17 08:46 [facility] [place] [email or web address]) Pulse Oximetry Assessment Oxygen Saturation (92-100) 95 Oxygen Delivery Method AVAP Fraction of Inspired Oxygen (FIO2) 30 Equipment Usage Equipment in Use Continuous SpO2 Machine # n 10 Intake & Output 09/05/17 09/06/17 09/07/17 06:59 06:59 06:59 Intake Total 800 2535 Output Total 2500 2300 Balance -1700 235 Weight 166 kg 166 kg 166 kg Exam: GENERAL: well-nourished and in no acute distress. Alert and oriented x3 HEAD: Atraumatic, normocephalic. EYES: Pupils equal round and reactive to light, extraocular movements intact, sclera anicteric, conjunctiva are normal. ENT: TMs normal, nares patent, oropharynx clear without exudates. Moist mucous membranes. No oral ulcerations or bleeding gums noted NECK: supple without lymphadenopathy. Trachea is central. No cervical or axillary lymphadenopathy noted. Carotids are 2+, JVD 10 cm LUNGS: Respiration seems nonlabored, no significant accessory muscle action noted. Breath sounds clear to auscultation bilaterally and equal noted. No wheezes rales or rhonchi noted. No significant dullness noted on percussion. CHEST: Palpation of the chest wall shows no significant chest wall tenderness. HEART: [place] [employer], No PSH, 1/6 PRAVIN aortic area, 1/6 pedraza systolic murmur mitral area, no rubs, no gallops. ABDOMEN: Soft, no significant tenderness appreciated, normoactive bowel sounds. No guarding, no rebound. No rigidity noted . No masses appreciated. Abdominal wall cellulitis noted. EXTREMITIES: Pedal pulses are 1-2+, no calf tenderness noted. No clubbing or cyanosis. 2+ pedal edema noted NEUROLOGICAL: Focused neurological exam showed no significant neurologic deficit. Normal speech, no focal weakness appreciated. PSYCH: Normal mood, normal affect. Judgment and insight within normal limits. SKIN: No significant ecchymosis, skin is noted to be warm. MUSCULOSKELETAL EXAM: No significant acute joint swelling noted. Results Laboratory Results: 09/06/17 06:00 09/05/17 09/05/17 09/05/17 14:48 17:40 21:50 Carbonic Acid 3.50 H 2.67 H 2.82 H HCO3/H2CO3 Ratio 13:1 14:1 14:1 ABG pH 7.22 L 7.27 L 7.26 L ABG pCO2 116.3 H* 88.6 H* 93.8 H* ABG pO2 43.8 L 80.5 87.8 ABG HCO3 46.2 H 39.3 H 41.3 H ABG O2 Saturation 66.2 L 93.5 L 94.7 ABG Base Excess 12.7 8.6 10.1 FiO2 6L 40% 40% Sodium Potassium Chloride Carbon Dioxide Anion Gap BUN Creatinine Est GFR ( Amer) Est GFR (Non-Af Amer) Glucose Calcium Phosphorus Magnesium 09/06/17 09/06/17 09/06/17 05:50 06:00 06:00 Carbonic Acid 2.13 H HCO3/H2CO3 Ratio 15:1 ABG pH 7.28 L ABG pCO2 70.6 H* ABG pO2 42.7 L ABG HCO3 32.7 H ABG O2 Saturation 70.8 L ABG Base Excess 3.5 FiO2 30% Sodium 143.4 Potassium 4.6 Chloride 96 L Carbon Dioxide 39 H Anion Gap 8 BUN 30 H Creatinine 0.90 Est GFR ( Amer) > 60 Est GFR (Non-Af Amer) > 60 Glucose 117 H Calcium 8.8 Phosphorus 4.8 H Magnesium 1.9 09/04/17 09/04/17 09/05/17 23:48 23:48 06:08 Creatine Kinase 110 104 Troponin I 0.069 NT-Pro-B Natriuret Pep 09/05/17 09/05/17 09/05/17 06:08 06:08 11:43 Creatine Kinase 84 Troponin I 0.060 NT-Pro-B Natriuret Pep 3770 H 09/05/17 09/06/17 11:43 06:00 Creatine Kinase Troponin I 0.047 NT-Pro-B Natriuret Pep 2650 H EKG Comments: Telemetry strip shows sinus rhythm without any significant cardiac dysrhythmia. Impressions: Abdomen/Pelvis CT 09/04/17 12:49 IMPRESSION: DIFFUSE SUBCUTANEOUS STRANDING INVOLVING THE ABDOMINAL PANNUS COMPATIBLE WITH CELLULITIS. NO DRAINABLE FLUID COLLECTION/ABSCESS. LEFT-SIDED NEPHROLITHIASIS WITHOUT LOWER URINARY TRACT STONES OR HYDRONEPHROSIS. Chest X-Ray 09/04/17 15:23 IMPRESSION: NO ACUTE RADIOGRAPHIC FINDING IN THE CHEST. MARKED CARDIOMEGALY Assessment & Plan - Diagnosis (1) Congestive heart failure (CHF) Qualifiers: Heart failure type: unspecified Heart failure chronicity: acute on chronic Qualified Code(s): I50.9 - Heart failure, unspecified Is this a current diagnosis for this admission?: Yes (2) Abdominal wall cellulitis Is this a current diagnosis for this admission?: Yes (3) Dyspnea on exertion Is this a current diagnosis for this admission?: Yes (4) Edema, peripheral Is this a current diagnosis for this admission?: Yes (5) OPAL (obstructive sleep apnea) Is this a current diagnosis for this admission?: Yes (6) Obesity Qualifiers: Obesity type: unspecified obesity type Obesity classification: unspecified obesity classification Is this a current diagnosis for this admission?: Yes - Notes Notes: He still has significant fluid overload. Continue with IV diuretic therapy. 2D echocardiogram still pending. Patient will benefit from continued nightly CPAP/BiPAP therapy. Patient will also benefit from significant weight loss. Abdominal cellulitis seems to be improving. Congestive heart failure: Seems predominantly right-sided. This is based on chest x-ray and CT scan reviewed. At this point agree with IV diuretics. Recommend 2D echocardiogram. Although chest x-ray shows suggestion that patient may have pericardial effusion, abdominal CT which did show a portion of the heart does not suggest pericardial effusion being present. Agree with diuretic therapy, salt and fluid restriction, positive pressure noninvasive ventilation. May also consider arterial blood gases. Abdominal wall cellulitis: Continue with antibiotic therapy. Seems to be improving. Dyspnea on exertion: Related to CHF, patient may have underlying COPD, obesity also contributing. Pedal edema: Most likely related to CHF with some venous insufficiency and dependency contributing. Obstructive sleep apnea: Patient felt to have severe obstructive sleep apnea. Continue with nightly CPAP therapy. Will try to obtain previous sleep apnea evaluation results. Obesity: Patient noted to have superobesity. Patient will benefit from aggressive weight loss. Discussed that weight loss will help multitudes of his problem - Time Time with patient: Greater than 35 minutes - CODE STATUS was discussed, patient remains full code. Surrogate decision-maker unchanged. Multiple medical problems were addressed. More than 50% of the time spent coordinating care, discussing management plans with involved caregivers. Management plans discussed with involved personnels. Medical decision making was of moderate to high complexity, patient's has multiple comorbidities. Medications reviewed and adjusted accordingly: Yes
[2017-09-06] MEDS ORDERED: VANCOMYCIN HCL 0 MG in DEXTROSE 5%-WATER 250 ML IV NR (14:30)
--- NOTE | 2017-09-06 14:53 | PDOC PROGRESS REPORT ---
Subjective Progress Note for:: 09/06/17 Subjective:: 57 yr old male with Obesity Asthma Nictine use OPAL not compliant with CPAP Osteoarthritis Presented to the hospital on September 04 with abdominal wall cellulitis shortness of breath and pedal edema. He was diagnosed with acute CHF exacerbation. Most likely right sided heart failure due to long-standing obstructive sleep apnea and noncompliance with CPAP. Echocardiogram results are pending. The patient was started on Ancef. He had some cyanosis of the toes of his left foot. Venous and arterial duplex studies were normal. He has good dorsalis pedis pulses. He developed acute hypercapnic respiratory failure which has been improving with BiPAP. His abdominal wall redness is receding but is still pretty significant. I have changed his antibiotics today to vancomycin and Levaquin. The patient was evaluated by Dr. Pham and Dr. Gonzalez. Their input is appreciated. No complaints at present. Feels better today. Reason For Visit: NEW ONSET CHF, ABDOMINAL WALL CELLULITIS Physical Exam Vital Signs: Temp Pulse Resp BP Pulse Ox 98.3 F 84 12 153/82 H 90 L 09/06/17 11:27 09/06/17 11:27 09/06/17 11:27 09/06/17 11:27 09/06/17 13:25 Pulse Oximeter Continuous Start: 09/05/17 17: 15 Freq: RTQ4 Status: Active Document 09/06/17 13:25 [facility] [place] (Rec: 09/06/17 13:27 [facility] [place] [email or web address]) Pulse Oximetry Assessment Oxygen Saturation (92-100) 90 Oxygen Flow Rate (L/min) 2 Oxygen Delivery Method Nasal Cannula Fraction of Inspired Oxygen (FIO2) 28 Equipment Usage Equipment in Use Continuous SpO2 Machine # N 10 Intake & Output 09/05/17 09/06/17 09/07/17 06:59 06:59 06:59 Intake Total 800 2535 1250 Output Total 2500 2300 900 Balance -1700 235 350 Weight 166 kg 166 kg 166 kg General appearance: PRESENT: no acute distress, morbidly obese Head exam: PRESENT: normocephalic Eye exam: PRESENT: PERRLA. ABSENT: scleral icterus Ear exam: PRESENT: normal external ear exam Mouth exam: PRESENT: moist Neck exam: ABSENT: tenderness Respiratory exam: PRESENT: clear to auscultation meron, symmetrical, unlabored Cardiovascular exam: PRESENT: RRR GI/Abdominal exam: PRESENT: normal bowel sounds, soft. ABSENT: tenderness Rectal exam: PRESENT: deferred Extremities exam: PRESENT: pedal edema. ABSENT: calf tenderness Musculoskeletal exam: PRESENT: normal inspection Neurological exam: PRESENT: alert, awake, oriented to person, oriented to place Psychiatric exam: PRESENT: appropriate affect Skin exam: ABSENT: petechiae Results Laboratory Results: 09/06/17 06:00 09/05/17 09/05/17 09/05/17 14:48 17:40 21:50 Carbonic Acid 3.50 H 2.67 H 2.82 H HCO3/H2CO3 Ratio 13:1 14:1 14:1 ABG pH 7.22 L 7.27 L 7.26 L ABG pCO2 116.3 H* 88.6 H* 93.8 H* ABG pO2 43.8 L 80.5 87.8 ABG HCO3 46.2 H 39.3 H 41.3 H ABG O2 Saturation 66.2 L 93.5 L 94.7 ABG Base Excess 12.7 8.6 10.1 FiO2 6L 40% 40% Sodium Potassium Chloride Carbon Dioxide Anion Gap BUN Creatinine Est GFR ( Amer) Est GFR (Non-Af Amer) Glucose Calcium Phosphorus Magnesium 09/06/17 09/06/17 09/06/17 05:50 06:00 06:00 Carbonic Acid 2.13 H HCO3/H2CO3 Ratio 15:1 ABG pH 7.28 L ABG pCO2 70.6 H* ABG pO2 42.7 L ABG HCO3 32.7 H ABG O2 Saturation 70.8 L ABG Base Excess 3.5 FiO2 30% Sodium 143.4 Potassium 4.6 Chloride 96 L Carbon Dioxide 39 H Anion Gap 8 BUN 30 H Creatinine 0.90 Est GFR ( Amer) > 60 Est GFR (Non-Af Amer) > 60 Glucose 117 H Calcium 8.8 Phosphorus 4.8 H Magnesium 1.9 09/04/17 09/04/17 09/05/17 23:48 23:48 06:08 Creatine Kinase 110 104 Troponin I 0.069 NT-Pro-B Natriuret Pep 09/05/17 09/05/17 09/05/17 06:08 06:08 11:43 Creatine Kinase 84 Troponin I 0.060 NT-Pro-B Natriuret Pep 3770 H 09/05/17 09/06/17 11:43 06:00 Creatine Kinase Troponin I 0.047 NT-Pro-B Natriuret Pep 2650 H Impressions: Abdomen/Pelvis CT 09/04/17 12:49 IMPRESSION: DIFFUSE SUBCUTANEOUS STRANDING INVOLVING THE ABDOMINAL PANNUS COMPATIBLE WITH CELLULITIS. NO DRAINABLE FLUID COLLECTION/ABSCESS. LEFT-SIDED NEPHROLITHIASIS WITHOUT LOWER URINARY TRACT STONES OR HYDRONEPHROSIS. Chest X-Ray 09/04/17 15:23 IMPRESSION: NO ACUTE RADIOGRAPHIC FINDING IN THE CHEST. MARKED CARDIOMEGALY Assessment & Plan - Diagnosis (1) Acute hypercapnic respiratory failure Is this a current diagnosis for this admission?: Yes Plan: BiPAP, monitor ABG. Pulmonology input appreciated. (2) Acute CHF Qualifiers: Heart failure type: right-sided Qualified Code(s): I50.811 - Acute right heart failure Is this a current diagnosis for this admission?: Yes Plan: Echocardiogram pending Monitor intake and output. Continue IV Lasix and losartan. Monitor on telemetry. Serial Cardiac enzymes. Aspirin. Cardiology input appreciated (3) Abdominal wall cellulitis Is this a current diagnosis for this admission?: Yes Plan: Day 3 of IV antibiotics (4) OPAL (obstructive sleep apnea) Is this a current diagnosis for this admission?: Yes Plan: On BiPAP (5) Nicotine dependence Is this a current diagnosis for this admission?: Yes Plan: Nicotine patch prn (6) DVT prophylaxis Is this a current diagnosis for this admission?: Yes Plan: Subcutaneous Lovenox - Time Time Spent with patient: 35 or more minutes
[2017-09-06] MEDS: VANCOMYCIN HCL 1,250 MG in DEXTROSE 5%-WATER 250 ML IV SCH (17:33)
--- NOTE | 2017-09-06 18:48 | PDOC CONSULTATION ---
Consultation Consult Date: 09/05/17 Attending physician:: LOBITO BETH Consult reason:: Acute on chronic hypercapnic hypoxic respiratory failure History of Present Illness Admission Date/PCP: 09/04/17 17:55 History of Present Illness: GAIL BOYER is a 57 year old male Complains increasing shortness of breath 3-4 weeks prior to admission which became progressively worse with a cough productive of clear to treat slightly yellow phlegm no hemoptysis PPD is negative dates unknown history of chronic lung disease as a child or adolescent. Admits to exposure large amounts of passive smoke as a child as well as an adult he himself is smoked one half packs a day for 45 years. 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 and has no pets no recent travel he denies complaints of some tightness in his chest but is infrequent sleeps usually is in a recliner at 45-60 admits to PND nocturnal cough and chronic edema admits to snoring restless sleep nocturia 3-4 times per night unrestful sleep and excessive daytime somnolence Past Medical History Pulmonary Medical History: Reports: Asthma, Bronchitis GI Medical History: Reports: Hiatal Hernia Psychiatric Medical History: Denies: Depression Social History Information Source: [facility] Records Smoking Status: Current Every Day Smoker Cigarettes Packs Per Day: 2 Last Time Smoked: 09/04/17 Passive smoke exposure as: Both Frequency of Alcohol Use: Occasional Hx Recreational Drug Use: No Drugs: None Hx Prescription Drug Abuse: No Do you have pets?: No Have you had any respiratory illnesses as a child?: No Have you been exposed to any sick contacts recently?: No Have you had any recent respiratory illnesses?: No Have you travelled outside of [place] in the past 12 months?: No - Advance Directive Resuscitation Status: Full Code Family History Family History: Hypertension Parental Family History Reviewed: No Children Family History Reviewed: No Sibling(s) Family History Reviewed.: No Medication/Allergy Home Medications: No Home Medications 09/04/17 Allergies/Adverse Reactions: No Known Allergies Allergy (Unverified 09/04/17 12:47) Review of Systems Constitutional: ABSENT: anorexia, chills, fever(s), headache(s), night sweats Eyes: ABSENT: visual disturbances Ears: ABSENT: hearing changes Nose, Mouth, and Throat: ABSENT: mouth pain Cardiovascular: PRESENT: dyspnea on exertion, edema, orthropnea. ABSENT: palpitations Respiratory: ABSENT: hemoptysis Gastrointestinal: ABSENT: abdominal pain, bloating, coffee ground emesis, dysphagia, heartburn, hematemesis, hematochezia, melena Genitourinary: ABSENT: dysuria, hematuria Musculoskeletal: ABSENT: joint swelling Integumentary: ABSENT: pruritus, rash Neurological: ABSENT: abnormal gait, abnormal movements, abnormal speech, confusion, frequent falls, lack of coordination, memory loss Psychiatric: ABSENT: hallucinations, homidical ideation, suicidal ideation Endocrine: ABSENT: cold intolerance, heat intolerance, polydipsia, polyuria Hematologic/Lymphatic: PRESENT: easy bruising Allergic/Immunologic: PRESENT: seasonal rhinorrhea Physical Exam Vital Signs: Temp Pulse Resp BP Pulse Ox 97.6 F 90 14 132/54 H 94 09/05/17 07:48 09/05/17 15:31 09/05/17 15:31 09/05/17 07:48 09/05/17 07:48 Intake & Output 09/04/17 09/05/17 09/06/17 06:59 06:59 06:59 Intake Total 800 Output Total 2500 Balance -1700 Weight 166 kg General appearance: PRESENT: disheveled, morbidly obese Head exam: PRESENT: atraumatic, normocephalic Eye exam: PRESENT: conjunctiva pale, EOMI. ABSENT: nystagmus, periorbital swelling, scleral icterus Mouth exam: PRESENT: dry mucosa, neck supple, tongue midline Neck exam: ABSENT: carotid bruit, JVD, lymphadenopathy, thyromegaly, tracheal deviation, tracheostomy Respiratory exam: PRESENT: decreased breath sounds, prolonged expiratory phas, rhonchi, symmetrical, unlabored, wheezes. ABSENT: rales, retraction, stridor, tachypnea Cardiovascular exam: PRESENT: RRR, +S1, +S2 Pulses: PRESENT: normal radial pulses GI/Abdominal exam: PRESENT: diminished bowel sounds, soft Extremities exam: PRESENT: full ROM. ABSENT: calf tenderness, clubbing, joint swelling Musculoskeletal exam: PRESENT: ambulatory, full ROM. ABSENT: deformity, dislocation Neurological exam: PRESENT: alert, awake Psychiatric exam: PRESENT: normal mood Skin exam: PRESENT: dry, warm Results Laboratory Results: 09/05/17 06:08 09/05/17 09/05/17 09/05/17 06:08 06:08 14:48 Carbonic Acid 3.50 H HCO3/H2CO3 Ratio 13:1 ABG pH 7.22 L ABG pCO2 116.3 H* ABG pO2 43.8 L ABG HCO3 46.2 H ABG O2 Saturation 66.2 L ABG Base Excess 12.7 FiO2 6L Sodium 143.2 Potassium 4.4 Chloride 98 Carbon Dioxide 38 H Anion Gap 7 BUN 26 H Creatinine 0.94 Est GFR ( Amer) > 60 Est GFR (Non-Af Amer) > 60 Glucose 115 H Calcium 8.9 Phosphorus 5.5 H Magnesium 1.8 Triglycerides 145 Cholesterol 120.43 LDL Cholesterol Direct 41 VLDL Cholesterol 29.0 HDL Cholesterol 42 TSH 1.29 09/04/17 09/04/17 09/05/17 23:48 23:48 06:08 Creatine Kinase 110 104 Troponin I 0.069 NT-Pro-B Natriuret Pep 09/05/17 09/05/17 09/05/17 06:08 06:08 11:43 Creatine Kinase 84 Troponin I 0.060 NT-Pro-B Natriuret Pep 3770 H 09/05/17 11:43 Creatine Kinase Troponin I 0.047 NT-Pro-B Natriuret Pep Impressions: Abdomen/Pelvis CT 09/04/17 12:49 IMPRESSION: DIFFUSE SUBCUTANEOUS STRANDING INVOLVING THE ABDOMINAL PANNUS COMPATIBLE WITH CELLULITIS. NO DRAINABLE FLUID COLLECTION/ABSCESS. LEFT-SIDED NEPHROLITHIASIS WITHOUT LOWER URINARY TRACT STONES OR HYDRONEPHROSIS. Chest X-Ray 09/04/17 15:23 IMPRESSION: NO ACUTE RADIOGRAPHIC FINDING IN THE CHEST. MARKED CARDIOMEGALY Assessment & Plan - Diagnosis (1) Acute hypercapnic respiratory failure Is this a current diagnosis for this admission?: Yes Plan: Treated with AVAPS continuous pulse oximetry and titrate oxygen to keep SAO2 between 90% and less than 94% (2) Dyspnea on exertion Is this a current diagnosis for this admission?: Yes Plan: COPD and/or CHF (3) Nicotine dependence Is this a current diagnosis for this admission?: Yes Plan: Transdermal nicotine as you are doing (4) OPAL (obstructive sleep apnea) Is this a current diagnosis for this admission?: Yes Plan: Nightly BiPAP oh whenever patient is asleep (5) Obesity Qualifiers: Obesity type: unspecified obesity type Obesity classification: unspecified obesity classification Is this a current diagnosis for this admission?: Yes Plan: May easily result in obesity hypoventilation syndrome further compromising his hypercapnic hypoxemic respiratory failure
--- NOTE | 2017-09-06 18:52 | PDOC PROGRESS REPORT ---
Subjective Progress Note for:: 09/06/17 Subjective:: Resting comfortably Reason For Visit: NEW ONSET CHF, ABDOMINAL WALL CELLULITIS Physical Exam Vital Signs: Temp Pulse Resp BP Pulse Ox 98.4 F 53 L 20 128/72 H 94 09/06/17 15:06 09/06/17 15:06 09/06/17 16:42 09/06/17 15:06 09/06/17 16:42 Pulse Oximeter Continuous Start: 09/05/17 17: 15 Freq: RTQ4 Status: Active Document 09/06/17 16:42 [facility] (Rec: 09/06/17 18:24 [facility] [email or web address]) Pulse Oximetry Assessment Oxygen Saturation (92-100) 94 Oxygen Delivery Method AVAP Fraction of Inspired Oxygen (FIO2) 40 Equipment Usage Equipment in Use Continuous SpO2 Machine # [id number] Intake & Output 09/05/17 09/06/17 09/07/17 06:59 06:59 06:59 Intake Total 800 2535 1485 Output Total 2500 2300 1075 Balance -1700 235 410 Weight 166 kg 166 kg 166 kg General appearance: PRESENT: no acute distress, cooperative, disheveled, morbidly obese Head exam: PRESENT: atraumatic, normocephalic Eye exam: PRESENT: conjunctiva pale, EOMI. ABSENT: nystagmus, periorbital swelling, scleral icterus Mouth exam: PRESENT: dry mucosa, neck supple, tongue midline Neck exam: ABSENT: carotid bruit, JVD, lymphadenopathy, thyromegaly, tracheal deviation, tracheostomy Respiratory exam: PRESENT: decreased breath sounds, prolonged expiratory phas, rales, rhonchi, symmetrical, unlabored. ABSENT: retraction, stridor, tachypnea Cardiovascular exam: PRESENT: RRR, +S1, +S2 Pulses: PRESENT: normal radial pulses GI/Abdominal exam: PRESENT: diminished bowel sounds, soft Extremities exam: PRESENT: full ROM, +2 edema. ABSENT: clubbing, joint swelling Musculoskeletal exam: PRESENT: full ROM. ABSENT: deformity, dislocation Skin exam: PRESENT: dry, warm Results Laboratory Results: 09/06/17 06:00 09/05/17 09/06/17 09/06/17 21:50 05:50 06:00 Carbonic Acid 2.82 H 2.13 H HCO3/H2CO3 Ratio 14:1 15:1 ABG pH 7.26 L 7.28 L ABG pCO2 93.8 H* 70.6 H* ABG pO2 87.8 42.7 L ABG HCO3 41.3 H 32.7 H ABG O2 Saturation 94.7 70.8 L ABG Base Excess 10.1 3.5 FiO2 40% 30% Sodium 143.4 Potassium 4.6 Chloride 96 L Carbon Dioxide 39 H Anion Gap 8 BUN 30 H Creatinine 0.90 Est GFR ( Amer) > 60 Est GFR (Non-Af Amer) > 60 Glucose 117 H Calcium 8.8 Phosphorus Magnesium 09/06/17 06:00 Carbonic Acid HCO3/H2CO3 Ratio ABG pH ABG pCO2 ABG pO2 ABG HCO3 ABG O2 Saturation ABG Base Excess FiO2 Sodium Potassium Chloride Carbon Dioxide Anion Gap BUN Creatinine Est GFR ( Amer) Est GFR (Non-Af Amer) Glucose Calcium Phosphorus 4.8 H Magnesium 1.9 09/04/17 09/04/17 09/05/17 23:48 23:48 06:08 Creatine Kinase 110 104 Troponin I 0.069 NT-Pro-B Natriuret Pep 09/05/17 09/05/17 09/05/17 06:08 06:08 11:43 Creatine Kinase 84 Troponin I 0.060 NT-Pro-B Natriuret Pep 3770 H 09/05/17 09/06/17 11:43 06:00 Creatine Kinase Troponin I 0.047 NT-Pro-B Natriuret Pep 2650 H Impressions: Abdomen/Pelvis CT 09/04/17 12:49 IMPRESSION: DIFFUSE SUBCUTANEOUS STRANDING INVOLVING THE ABDOMINAL PANNUS COMPATIBLE WITH CELLULITIS. NO DRAINABLE FLUID COLLECTION/ABSCESS. LEFT-SIDED NEPHROLITHIASIS WITHOUT LOWER URINARY TRACT STONES OR HYDRONEPHROSIS. Chest X-Ray 09/04/17 15:23 IMPRESSION: NO ACUTE RADIOGRAPHIC FINDING IN THE CHEST. MARKED CARDIOMEGALY Assessment & Plan - Diagnosis (1) Acute hypercapnic respiratory failure Is this a current diagnosis for this admission?: Yes Plan: Hypercapnia improved; pH unchanged As result of patient noting a poor or uncomfortable fitting mask and Per my instructions [facility]PA respiratory has refitted NIPPV mask to insure compliance, comfort and optimum fit [facility] has provided this as a free service and free samples (2) Dyspnea on exertion Is this a current diagnosis for this admission?: Yes Plan: Suggest checking MUGA as acoustic window for echocardiogram is probably not going to be satisfactory due to the patient's body habitus COPD and CHF (3) Nicotine dependence Is this a current diagnosis for this admission?: Yes Plan: Transdermal nicotine as you are doing (4) OPAL (obstructive sleep apnea) Is this a current diagnosis for this admission?: Yes (5) Obesity Qualifiers: Obesity type: unspecified obesity type Obesity classification: unspecified obesity classification Is this a current diagnosis for this admission?: Yes
[2017-09-06] MEDS: LEVALBUTEROL HCL NEB 0.63 MG/3 ML AMPUL NEB PRN (20:40)
[2017-09-06] MEDS: LEVOFLOXACIN 750 MG/D5W RTU 750 MG/150 ML RTUPB IV SCH (21:13)
[2017-09-07] MEDS: VANCOMYCIN HCL 1,250 MG in DEXTROSE 5%-WATER 250 ML IV SCH ×3 (01:12→18:20)
[2017-09-07 06:01] LABS: ARTERIAL BLOOD BASE EXCESS 16.8 mmol/L; ARTERIAL BLOOD H2CO3 2.86 mmol/L (1.05-1.35); ARTERIAL BLOOD HCO3 48.1 mmol/L (20-26); ARTERIAL BLOOD O2 SATURATION 89.9 % (94-98); ARTERIAL BLOOD PH 7.32 (7.35-7.45); ARTERIAL BLOOD PO2 65.8 mmHg (80-100)
[2017-09-07 06:05] LABS: ABSOLUTE EOSINOPHILS # (AUTO) 0.2 10^3/uL (0.0-0.6); ABSOLUTE LYMPHOCYTES (AUTO) 0.8 10^3/uL (0.5-4.7); ABSOLUTE MONOCYTES (AUTO) 0.9 10^3/uL (0.1-1.4); ABSOLUTE NEUT (AUTO) 6.3 10^3/uL (1.7-8.2); BASOPHILS % (AUTO) 0.5 % (0-2); EOSINOPHILS % (AUTO) 2.7 % (0-6); LYMPHOCYTES % (AUTO) 10.1 % (13-45); MEAN CORPUSCULAR HEMOGLOBIN 29.1 pg (27.0-33.4); MEAN CORPUSCULAR HGB CONC 32.5 g/dL (32.0-36.0); MEAN CORPUSCULAR VOLUME 90 fl (80-97); MONOCYTES % (AUTO) 10.7 % (3-13); PLATELET COUNT 216 10^3/uL (150-450); RED BLOOD COUNT 4.81 10^6/uL (4.35-5.55); TOTAL CELLS COUNTED % (AUTO) 100 %; WHITE BLOOD COUNT 8.3 10^3/uL (4.0-10.5)
[2017-09-07 06:06] LABS: ARTERIAL BLOOD FIO2 40%
[2017-09-07 06:07] LABS: ARTERIAL BLOOD PCO2 95.1 mmHg (35-45)
[2017-09-07 06:33] LABS: BLOOD UREA NITROGEN 23 mg/dL (7-20); CALCIUM 8.7 mg/dL (8.4-10.2); CHLORIDE 92 mmol/L (98-107); GLUCOSE 110 mg/dL (75-110); PHOSPHORUS 4.8 mg/dL (2.5-4.5); POTASSIUM 4.2 mmol/L (3.6-5.0); SODIUM 143.6 mmol/L (137-145)
[2017-09-07 06:41] LABS: ANION GAP 7 (5-19)
[2017-09-07 06:43] LABS: CARBON DIOXIDE 45 mmol/L (22-30)
[2017-09-07] MEDS: BUDESONIDE NEB 0.5 MG/2 ML AMPUL NEB SCH ×2 (08:19→20:44)
[2017-09-07] MEDS: LACTOBACILLUS ACIDOPHILUS 250 MG TAB PO SCH ×2 (09:25→18:20)
[2017-09-07] MEDS: ENOXAPARIN SODIUM INJ 30 MG/0.3 ML DISP.SYRIN SUBCUT SCH (09:26)
[2017-09-07] MEDS: MAGNESIUM OXIDE 400 MG TABLET PO SCH ×2 (09:26→18:20)
[2017-09-07] MEDS: LOSARTAN POTASSIUM 25 MG TABLET PO SCH (09:26)
[2017-09-07] MEDS: FUROSEMIDE INJ/PF 100 MG/10 ML SDV IV SCH ×2 (11:37→22:08)
--- NOTE | 2017-09-07 12:21 | RADIOLOGY REPORT (SQ) ---
EXAM DESCRIPTION: CTA CHEST COMPLETED DATE/TIME: 09/07/2017 11:58 am REASON FOR STUDY: sob/hypoxia shortness of breath COMPARISON: Chest films 09/04/2017 TECHNIQUE: CT scan of the chest performed using helical scanning technique with dynamic intravenous contrast injection. Images reviewed with lung, soft tissue and bone windows. Reconstructed coronal and sagittal MPR images reviewed. Additional 3 dimensional post-processing performed to develop Maximal Intensity Projection images (VA P). All images stored on PACS. All CT scanners at this facility use dose modulation, iterative reconstruction, and/or weight based d osing when appropriate to reduce radiation dose to as low as reasonably achievable (ALARA). [facility]: Dose Right [facility]: CareDose [facility]: Dose Right [facility]: Teradose 4D [facility]: [employer] CONTRAST TYPE AND DOSE: contrast/concentration: Isovue 370.00 mg/ml; Total Contrast Delivered: 79.0 ml; Total Saline Delivered: 110.0 ml Contrast bolus optimized for the pulmonary arteries. Not diagnostic for the aorta. RENAL FUNCTION: Creatinine 0.89 RADIATION DOSE: CT Rad equipment meets quality standard of care and radiation dose reduction techniq ues were employed. CTDIvol: 15.5 - 41.3 mGy. DLP: 637 mGy-cm. . LIMITATIONS: None. FINDINGS: LUNGS AND PLEURA: Bandlike scarring or atelectasis in the left upper lobe near the major f issure. Minimal patchy airspace disease in the bilateral posterior costophrenic sulci likely atelect asis. No pneumothorax. No pleural effusions. No worrisome pulmonary nodules. Airways are unremarkable. AORTA AND GREAT VESSELS: No aneurysm. Contrast bolus not optimized for the aorta. HEART: No pericardial effusion. No significant coronary artery calcifications. PULMONARY ARTERIES: No emboli visualized in the main pulmonary arteries or the segmental branches. HILAR AND MEDIASTINAL STRUCTURES: No identified masses or abnormal nodes. HARDWARE: None in the chest. UPPER ABDOMEN: No significant findings. Limited exam. THYROID AND OTHER SOFT TISSUES: 8 x 4 cm right chest wall benign-appearing lipoma axial image 37 BONES: No acute or significant finding. 3D MIPS: Confirm above findings. OTHER: No other significant finding. IMPRESSION: Bibasilar atelectasis. No CT evidence of acute pulmonary emboli. COMMENT: Quality ID # [id number]: Final reports with documentation of one or more dose reduction techniques (e.g., Automated exposure control, adjustment of the mA and/or kV according to patient size, use of iterative reconstruction technique) TECHNICAL DOCUMENTATION: JOB ID: [id number] [employer]- All Rights Reserved Reading location - IP/workstation name: [facility]-[email or web address]
--- NOTE | 2017-09-07 14:56 | PDOC PROGRESS REPORT ---
Subjective Progress Note for:: 09/07/17 Subjective:: The patient is a 57-year-old morbidly obese gentleman with a past medical history significant for asthma as well as obstructive sleep apnea. He is not compliant with CPAP. Unfortunately the patient continues to smoke. He presented to the hospital on September 04 with abdominal wall cellulitis, increased shortness of breath and pedal edema. He was found to be having evidence of an acute congestive heart failure exacerbation. It is felt that he is having a right-sided heart failure exacerbation issues with right-sided heart failure. Reportedly a 2D cardiac echo has been ordered but not yet performed. The patient is being followed closely by pulmonology. He had a CT angiography today which was negative for pulmonary embolus or underlying infiltrate. He was found to have evidence of atelectasis. Unfortunately the patient is requiring [id number] BiPAP. According to the nursing staff he was awake alert and oriented this morning. He was allowed to take his BiPAP off to eat his breakfast. It had been replaced by the time of my visit. When I went in to see the patient he was quite somnolent. I really could not get him to arouse. A review of systems could not be obtained. Reason For Visit: NEW ONSET CHF, ABDOMINAL WALL CELLULITIS Physical Exam Vital Signs: Temp Pulse Resp BP Pulse Ox 97.9 F 90 20 120/95 H 90 L 09/07/17 12:31 09/07/17 14:00 09/07/17 12:31 09/07/17 12:31 09/07/17 12:31 Pulse Oximeter Continuous Start: 09/05/17 17: 15 Freq: RTQ4 Status: Active Document 09/07/17 11:07 TPO (Rec: 09/07/17 11:08 TPO [email or web address]) Pulse Oximetry Assessment Oxygen Saturation (92-100) 97 Oxygen Delivery Method AVAP Fraction of Inspired Oxygen (FIO2) 40 Equipment Usage Equipment in Use Continuous SpO2 Machine # N-10 Intake & Output 09/06/17 09/07/17 09/08/17 06:59 06:59 06:59 Intake Total 6909 1656 1336 Output Total 7149 5711 1600 Balance 202 -9395 -737 Weight 166 kg 167.7 kg General appearance: PRESENT: morbidly obese, well-developed, well-nourished - He is wearing BiPAP. He is unresponsive, other Head exam: PRESENT: atraumatic, normocephalic Respiratory exam: PRESENT: other - He would not cooperate for an exam. He had crackles in the lower bases bilaterally. Cardiovascular exam: PRESENT: RRR. ABSENT: diastolic murmur, rubs, systolic murmur GI/Abdominal exam: PRESENT: other Rectal exam: PRESENT: deferred - Morbidly obese. Somewhat firm. Appeared to be non-tender to palpation. Positive bowel sounds Extremities exam: PRESENT: +2 edema Neurological exam: ABSENT: alert, altered, awake Psychiatric exam: PRESENT: other - He is somnolent and not awake at the time of my visit Skin exam: PRESENT: dry, intact, warm, other - He reportedly has abdominal wall cellulitis but I was unable to examine him due to the way he was sleeping.. ABSENT: cyanosis, rash Results Laboratory Results: 09/07/17 05:39 09/07/17 05:39 09/07/17 09/07/17 09/07/17 05:39 05:39 05:45 WBC 8.3 RBC 4.81 Hgb 14.0 Hct 43.0 MCV 90 MCH 29.1 MCHC 32.5 RDW 15.0 H Plt Count 216 Seg Neutrophils % 76.0 Lymphocytes % 10.1 L Monocytes % 10.7 Eosinophils % 2.7 Basophils % 0.5 Absolute Neutrophils 6.3 Absolute Lymphocytes 0.8 Absolute Monocytes 0.9 Absolute Eosinophils 0.2 Absolute Basophils 0.0 Carbonic Acid 2.86 H HCO3/H2CO3 Ratio 16:1 ABG pH 7.32 L ABG pCO2 95.1 H* ABG pO2 65.8 L ABG HCO3 48.1 H ABG O2 Saturation 89.9 L ABG Base Excess 16.8 FiO2 40% Sodium 143.6 Potassium 4.2 Chloride 92 L Carbon Dioxide 45 H* Anion Gap 7 BUN 23 H Creatinine 0.89 Est GFR ( Amer) > 60 Est GFR (Non-Af Amer) > 60 Glucose 110 Calcium 8.7 Phosphorus 4.8 H Magnesium 1.9 09/04/17 09/04/17 09/05/17 23:48 23:48 06:08 Creatine Kinase 110 104 Troponin I 0.069 NT-Pro-B Natriuret Pep 09/05/17 09/05/17 09/05/17 06:08 06:08 11:43 Creatine Kinase 84 Troponin I 0.060 NT-Pro-B Natriuret Pep 3770 H 09/05/17 09/06/17 09/07/17 11:43 06:00 05:39 Creatine Kinase Troponin I 0.047 NT-Pro-B Natriuret Pep 2650 H 1620 H Impressions: Abdomen/Pelvis CT 09/04/17 12:49 IMPRESSION: DIFFUSE SUBCUTANEOUS STRANDING INVOLVING THE ABDOMINAL PANNUS COMPATIBLE WITH CELLULITIS. NO DRAINABLE FLUID COLLECTION/ABSCESS. LEFT-SIDED NEPHROLITHIASIS WITHOUT LOWER URINARY TRACT STONES OR HYDRONEPHROSIS. Chest X-Ray 09/04/17 15:23 IMPRESSION: NO ACUTE RADIOGRAPHIC FINDING IN THE CHEST. MARKED CARDIOMEGALY Chest/Abdomen CTA 09/07/17 10:32 IMPRESSION: Bibasilar atelectasis. No CT evidence of acute pulmonary emboli. Assessment & Plan - Diagnosis (1) Acute hypercapnic respiratory failure Is this a current diagnosis for this admission?: Yes Plan: The patient continues on BiPAP. I did alert Dr. Pham fact that he was somnolent. He states that it is because he has been off of his BiPAP to eat his breakfast. He will continue BiPAP support. Appreciate Dr. Pham's assistance. Therapy will be outlined below (2) Acute CHF Qualifiers: Heart failure type: right-sided Qualified Code(s): I50.811 - Acute right heart failure Is this a current diagnosis for this admission?: Yes Plan: 2D echocardiogram appeared to have not been ordered. I have ordered it today. I suspect he is having right-sided heart failure issues. Continue Lasix 60 mg every 12 hours. (3) OPAL (obstructive sleep apnea) Is this a current diagnosis for this admission?: Yes (4) Obesity hypoventilation syndrome Is this a current diagnosis for this admission?: Yes Plan: Continue BiPAP as needed. (5) Morbid obesity Is this a current diagnosis for this admission?: Yes Plan: Certainly significant weight loss as needed. (6) Abdominal wall cellulitis Is this a current diagnosis for this admission?: Yes Plan: Continue IV vancomycin and Levaquin. (7) Nicotine dependence Is this a current diagnosis for this admission?: Yes Plan: Certainly it would be in his best interest to quit smoking (8) Hyperphosphatemia Is this a current diagnosis for this admission?: Yes Plan: He will have a level drawn in the morning (9) Full code status Is this a current diagnosis for this admission?: Yes - Time Time Spent with patient: 25-34 minutes - Inpatient Certification Medical Necessity: Other - Inpatient hospitalization remains necessary. At this point the patient has been maintained on BiPAP. He has decompensated heart failure requiring parenteral diuresis. He needs a 2D cardiac echo and further input from pulmonology. We may need to get cardiology involved as well.
--- NOTE | 2017-09-07 16:15 | PDOC PROGRESS REPORT ---
Subjective Progress Note for:: 09/07/17 Subjective:: Resting comfortably Reason For Visit: NEW ONSET CHF, ABDOMINAL WALL CELLULITIS Physical Exam Vital Signs: Temp Pulse Resp BP Pulse Ox 97.8 F 82 20 119/71 90 L 09/07/17 08:35 09/07/17 08:35 09/07/17 08:35 09/07/17 08:35 09/07/17 08:35 Pulse Oximeter Continuous Start: 09/05/17 17: 15 Freq: RTQ4 Status: Active Document 09/07/17 08:20 TPO (Rec: 09/07/17 08:29 TPO [email or web address]) Pulse Oximetry Assessment Oxygen Saturation (92-100) 90 Oxygen Flow Rate (L/min) 4 Oxygen Delivery Method Nasal Cannula Fraction of Inspired Oxygen (FIO2) 36 Equipment Usage Equipment in Use Continuous SpO2 Machine # N-10 Intake & Output 09/06/17 09/07/17 09/08/17 06:59 06:59 06:59 Intake Total 2531 3586 Output Total 2302 5321 Balance 235 -2589 Weight 166 kg 167.7 kg General appearance: PRESENT: no acute distress, cooperative, disheveled, morbidly obese Head exam: PRESENT: atraumatic, normocephalic Eye exam: PRESENT: conjunctiva pale, EOMI. ABSENT: nystagmus, periorbital swelling, scleral icterus Mouth exam: PRESENT: dry mucosa, neck supple, tongue midline Neck exam: ABSENT: carotid bruit, JVD, lymphadenopathy, thyromegaly, tracheal deviation, tracheostomy Respiratory exam: PRESENT: decreased breath sounds, prolonged expiratory phas, rales, rhonchi. ABSENT: retraction, stridor, tachypnea Cardiovascular exam: PRESENT: RRR, +S1, +S2 Pulses: PRESENT: normal radial pulses GI/Abdominal exam: PRESENT: diminished bowel sounds, soft Extremities exam: ABSENT: calf tenderness, clubbing, joint swelling Musculoskeletal exam: ABSENT: deformity, dislocation Neurological exam: PRESENT: alert, awake Psychiatric exam: PRESENT: normal mood Skin exam: PRESENT: dry, warm Results Laboratory Results: 09/07/17 05:39 09/07/17 05:39 09/07/17 09/07/17 09/07/17 05:39 05:39 05:45 WBC 8.3 RBC 4.81 Hgb 14.0 Hct 43.0 MCV 90 MCH 29.1 MCHC 32.5 RDW 15.0 H Plt Count 216 Seg Neutrophils % 76.0 Lymphocytes % 10.1 L Monocytes % 10.7 Eosinophils % 2.7 Basophils % 0.5 Absolute Neutrophils 6.3 Absolute Lymphocytes 0.8 Absolute Monocytes 0.9 Absolute Eosinophils 0.2 Absolute Basophils 0.0 Carbonic Acid 2.86 H HCO3/H2CO3 Ratio 16:1 ABG pH 7.32 L ABG pCO2 95.1 H* ABG pO2 65.8 L ABG HCO3 48.1 H ABG O2 Saturation 89.9 L ABG Base Excess 16.8 FiO2 40% Sodium 143.6 Potassium 4.2 Chloride 92 L Carbon Dioxide 45 H* Anion Gap 7 BUN 23 H Creatinine 0.89 Est GFR ( Amer) > 60 Est GFR (Non-Af Amer) > 60 Glucose 110 Calcium 8.7 Phosphorus 4.8 H Magnesium 1.9 09/04/17 09/04/17 09/05/17 23:48 23:48 06:08 Creatine Kinase 110 104 Troponin I 0.069 NT-Pro-B Natriuret Pep 09/05/17 09/05/17 09/05/17 06:08 06:08 11:43 Creatine Kinase 84 Troponin I 0.060 NT-Pro-B Natriuret Pep 3770 H 09/05/17 09/06/17 09/07/17 11:43 06:00 05:39 Creatine Kinase Troponin I 0.047 NT-Pro-B Natriuret Pep 2650 H 1620 H Impressions: Abdomen/Pelvis CT 09/04/17 12:49 IMPRESSION: DIFFUSE SUBCUTANEOUS STRANDING INVOLVING THE ABDOMINAL PANNUS COMPATIBLE WITH CELLULITIS. NO DRAINABLE FLUID COLLECTION/ABSCESS. LEFT-SIDED NEPHROLITHIASIS WITHOUT LOWER URINARY TRACT STONES OR HYDRONEPHROSIS. Chest X-Ray 09/04/17 15:23 IMPRESSION: NO ACUTE RADIOGRAPHIC FINDING IN THE CHEST. MARKED CARDIOMEGALY Assessment & Plan - Diagnosis (1) Acute hypercapnic respiratory failure Is this a current diagnosis for this admission?: Yes Plan: The above patient has failed BiPAP. This patient would benefit from noninvasive mechanical ventilation via the trilogy AVAPS/AE and faster responding AVAPS rates. The trilogy is able to provide a target tidal volume and also adjusting the EPAP pressures to maintain a patent airway as well as an oral backup rate this machine will help improve PaCO2 levels. The severity of the patient's condition will lead to future hospitalizations and readmissions as well as life-threatening situations without the use of this device trilogy home vent needed for hypercapnic respiratory failure. [facility] or [facility] [place] to follow for trilogy set up. (2) Dyspnea on exertion Is this a current diagnosis for this admission?: Yes Plan: Suggest checking MUGA as acoustic window for echocardiogram is probably not going to be satisfactory due to the patient's body habitus COPD and CHF (3) Nicotine dependence Is this a current diagnosis for this admission?: Yes Plan: Transdermal nicotine as you are doing (4) OPAL (obstructive sleep apnea) Is this a current diagnosis for this admission?: Yes Plan: Nightly BiPAP oh whenever patient is asleep (5) Obesity Qualifiers: Obesity type: unspecified obesity type Obesity classification: unspecified obesity classification Is this a current diagnosis for this admission?: Yes
--- NOTE | 2017-09-07 17:58 | XCELERA REPORT ---
[address] [address] Transthoracic Echocardiogram Report Name: GAIL BOYER Age: 57 yrs Gender: Male : 1960 Patient Status: Inpatient Patient Location: [address] [place] [address] Study Date: 09/07/2017 03:54 PM Height: 75 in Weight: 369 lb BSA: 2.8 m2 Procedure: A complete two-dimensional transthoracic echocardiogram was performed (2D, M-mode, spectral and color flow Doppler). The study was technically difficult with many images being suboptimal in quality. Reason For Study: chf Ordering Physician: MADISON YATES Performed By: Vianca Molina Interpretation Summary The study was technically difficult with many images being suboptimal in quality. The left ventricular ejection fraction is preserved. There is mild concentric left ventricular hypertrophy. The left ventricle is grossly normal size. LV diastolic function not assessed. Regional wall motion abnormalities cannot be excluded due to limited visualization. The right ventricle is moderately dilated. The right ventricular systolic function is mildly reduced. The right atrium is moderately dilated. The left atrium is mildly dilated. There is a trace amount of mitral regurgitation There is no mitral valve stenosis. There is no aortic valve stenosis There is a trace amount of aortic regurgitation There is a mild amount of tricuspid regurgitation There is moderate to severe pulmonary hypertension by echo Right ventricular systolic pressure is estimated to be elevated at 50- 60mmHg. The aortic root is not well visualized but is probably normal size. The inferior vena cava was not well visualized There is no pericardial effusion. MMode/2D Measurements & Calculations RVDd: 5.0 cm LVIDd: 6.7 cm FS: 35.7 % Ao root diam: 3.1 cm IVSd: 1.1 cm LVIDs: 4.3 cm EDV(Teich): 232.7 ml LVPWd: 1.1 cm ESV(Teich): 84.0 ml Ao root area: 7.8 cm2 EF(Teich): 63.9 % LA dimension: 4.3 cm Doppler Measurements & Calculations MV E max maria fernanda: MV P1/2t max maria fernanda: Ao V2 max: LV V1 max P.3 cm/sec 73.4 cm/sec 218.5 cm/sec 2.0 mmHg MV A max maria fernanda: MV P1/2t: 43.7 msec Ao max PG: LV V1 max: 56.9 cm/sec 19.1 mmHg 71.0 cm/sec MV E/A: 1.3 MVA(P1/2t): 5.0 cm2 MV dec slope: 491.4 cm/sec2 MV dec time: 0.14 sec PA V2 max: TR max maria fernanda: 100.2 cm/sec 355.6 cm/sec PA max PG: TR max P.6 mmHg 4.0 mmHg Left Ventricle The left ventricle is grossly normal size. There is mild concentric left ventricular hypertrophy. The left ventricular ejection fraction is preserved. LV diastolic function not assessed. Regional wall motion abnormalities cannot be excluded due to limited visualization. Right Ventricle The right ventricle is moderately dilated. The right ventricle appears to be hypertrophied. The right ventricular systolic function is mildly reduced. Atria The right atrium is moderately dilated. The left atrium is mildly dilated. Interarterial septum not well visualized and not well dopplered. Cannot comment on ASD/PFO presence. Mitral Valve The mitral valve is grossly normal. There is no mitral valve stenosis. There is a trace amount of mitral regurgitation. Aortic Valve The aortic valve is not well visualized secondary to technical limitations. There is no aortic valve stenosis. There is a trace amount of aortic regurgitation. Tricuspid Valve The tricuspid valve is not well visualized secondary to technical limitations. There is no tricuspid stenosis. There is a mild amount of tricuspid regurgitation. There is moderate to severe pulmonary hypertension by echo. Right ventricular systolic pressure is estimated to be elevated at 50-60mmHg. Pulmonic Valve The pulmonic valve is not well visualized. Great Vessels The aortic root is not well visualized but is probably normal size. The inferior vena cava was not well visualized. Effusions There is no pericardial effusion. : MADISON YATES > Chelsea Gonzalez
[2017-09-07 18:19] LABS: VANCOMYCIN,TROUGH 9.2 ug/mL (5.0-20.0)
[2017-09-07] MEDS: ERYTHROMYCIN 0.5% OPH OINTMENT 3.5 GM TUBE OS SCH ×2 (18:20→23:03)
[2017-09-07] MEDS: LEVALBUTEROL HCL NEB 0.63 MG/3 ML AMPUL NEB PRN (20:44)
[2017-09-07] MEDS: LEVOFLOXACIN 750 MG/D5W RTU 750 MG/150 ML RTUPB IV SCH (21:21)
[2017-09-08] MEDS: VANCOMYCIN HCL 1,500 MG in DEXTROSE 5%-WATER 250 ML IV SCH ×3 (01:19→18:18)
[2017-09-08] MEDS: ERYTHROMYCIN 0.5% OPH OINTMENT 3.5 GM TUBE OS SCH ×3 (05:12→18:18)
[2017-09-08 06:09] LABS: ABSOLUTE EOSINOPHILS # (AUTO) 0.3 10^3/uL (0.0-0.6); ABSOLUTE LYMPHOCYTES (AUTO) 0.8 10^3/uL (0.5-4.7); ABSOLUTE MONOCYTES (AUTO) 0.9 10^3/uL (0.1-1.4); ABSOLUTE NEUT (AUTO) 5.7 10^3/uL (1.7-8.2); BASOPHILS % (AUTO) 0.5 % (0-2); EOSINOPHILS % (AUTO) 3.8 % (0-6); HEMATOCRIT 44.1 % (37.9-51.0); HEMOGLOBIN 14.5 g/dL (13.5-17.0); LYMPHOCYTES % (AUTO) 10.6 % (13-45); MEAN CORPUSCULAR HEMOGLOBIN 29.1 pg (27.0-33.4); MEAN CORPUSCULAR HGB CONC 32.9 g/dL (32.0-36.0); MEAN CORPUSCULAR VOLUME 89 fl (80-97); MONOCYTES % (AUTO) 11.1 % (3-13); PLATELET COUNT 217 10^3/uL (150-450); RED BLOOD COUNT 4.98 10^6/uL (4.35-5.55); RED CELL DISTRIBUTION WIDTH 15.2 % (11.5-14.0); TOTAL CELLS COUNTED % (AUTO) 100 %; WHITE BLOOD COUNT 7.7 10^3/uL (4.0-10.5)
[2017-09-08 06:12] LABS: ARTERIAL BLOOD BASE EXCESS 10.3 mmol/L; ARTERIAL BLOOD H2CO3 2.27 mmol/L (1.05-1.35); ARTERIAL BLOOD HCO3 39.6 mmol/L (20-26); ARTERIAL BLOOD O2 SATURATION 90.9 % (94-98); ARTERIAL BLOOD PH 7.34 (7.35-7.45); ARTERIAL BLOOD PO2 65.9 mmHg (80-100); ARTERIAL BLOOD TOTAL CO2 41.9 mmol/L (23-27)
[2017-09-08 06:14] LABS: ARTERIAL BLOOD FIO2 30%
[2017-09-08 06:16] LABS: ARTERIAL BLOOD PCO2 75.4 mmHg (35-45)
[2017-09-08 06:22] LABS: BLOOD UREA NITROGEN 16 mg/dL (7-20); CHLORIDE 90 mmol/L (98-107); GLUCOSE 106 mg/dL (75-110); SODIUM 141.3 mmol/L (137-145)
[2017-09-08 06:32] LABS: ANION GAP 6 (5-19)
[2017-09-08 06:47] LABS: CARBON DIOXIDE 45 mmol/L (22-30)
[2017-09-08] MEDS: BUDESONIDE NEB 0.5 MG/2 ML AMPUL NEB SCH ×2 (07:44→20:46)
[2017-09-08] MEDS: LEVALBUTEROL HCL NEB 0.63 MG/3 ML AMPUL NEB PRN ×2 (07:44→20:46)
[2017-09-08] MEDS: LOSARTAN POTASSIUM 25 MG TABLET PO SCH (09:34)
[2017-09-08] MEDS: LACTOBACILLUS ACIDOPHILUS 250 MG TAB PO SCH ×2 (09:34→18:18)
[2017-09-08] MEDS: MAGNESIUM OXIDE 400 MG TABLET PO SCH ×2 (09:34→18:18)
[2017-09-08] MEDS: ENOXAPARIN SODIUM INJ 40 MG/0.4 ML DISP.SYRIN SUBCUT SCH (09:34)
--- NOTE | 2017-09-08 11:25 | PDOC PROGRESS REPORT ---
Subjective Progress Note for:: 09/08/17 Subjective:: w/o complaints resting comfortably Reason For Visit: NEW ONSET CHF, ABDOMINAL WALL CELLULITIS Physical Exam Vital Signs: Temp Pulse Resp BP Pulse Ox 97.7 F 95 20 115/60 92 09/08/17 05:07 09/08/17 07:44 09/08/17 07:44 09/08/17 05:07 09/08/17 07:44 Pulse Oximeter Continuous Start: 09/05/17 17: 15 Freq: RTQ4 Status: Active Document 09/08/17 07:44 TPO (Rec: 09/08/17 07:54 TPO [email or web address]) Pulse Oximetry Assessment Oxygen Saturation (92-100) 92 Oxygen Delivery Method AVAP Fraction of Inspired Oxygen (FIO2) 30 Equipment Usage Equipment in Use Continuous SpO2 Machine # 10 Intake & Output 09/07/17 09/08/17 09/09/17 06:59 06:59 06:59 Intake Total 3586 3947 Output Total 6469 6769 Balance -6389 -0067 Weight 167.7 kg 162.794 kg General appearance: PRESENT: no acute distress, cooperative, disheveled, morbidly obese Head exam: PRESENT: atraumatic, normocephalic Eye exam: PRESENT: conjunctiva pale, EOMI. ABSENT: nystagmus, periorbital swelling, scleral icterus Mouth exam: PRESENT: dry mucosa, neck supple, tongue midline Neck exam: ABSENT: carotid bruit, JVD, lymphadenopathy, thyromegaly, tracheal deviation, tracheostomy Respiratory exam: PRESENT: decreased breath sounds, prolonged expiratory phas, rales, rhonchi, unlabored. ABSENT: retraction, stridor, tachypnea Cardiovascular exam: PRESENT: RRR, +S1, +S2 Pulses: PRESENT: normal radial pulses GI/Abdominal exam: PRESENT: diminished bowel sounds, soft Extremities exam: PRESENT: full ROM. ABSENT: calf tenderness, clubbing, joint swelling Musculoskeletal exam: PRESENT: ambulatory, full ROM. ABSENT: deformity, dislocation Neurological exam: PRESENT: alert, awake Psychiatric exam: PRESENT: normal mood Skin exam: PRESENT: dry, warm Results Laboratory Results: 09/08/17 05:42 09/08/17 05:42 09/08/17 09/08/17 09/08/17 05:42 05:42 05:50 WBC 7.7 RBC 4.98 Hgb 14.5 Hct 44.1 MCV 89 MCH 29.1 MCHC 32.9 RDW 15.2 H Plt Count 217 Seg Neutrophils % 74.0 Lymphocytes % 10.6 L Monocytes % 11.1 Eosinophils % 3.8 Basophils % 0.5 Absolute Neutrophils 5.7 Absolute Lymphocytes 0.8 Absolute Monocytes 0.9 Absolute Eosinophils 0.3 Absolute Basophils 0.0 Carbonic Acid 2.27 H HCO3/H2CO3 Ratio 17:1 ABG pH 7.34 L ABG pCO2 75.4 H* ABG pO2 65.9 L ABG HCO3 39.6 H ABG O2 Saturation 90.9 L ABG Base Excess 10.3 FiO2 30% Sodium 141.3 Potassium 4.0 Chloride 90 L Carbon Dioxide 45 H* Anion Gap 6 BUN 16 Creatinine 0.73 Est GFR ( Amer) > 60 Est GFR (Non-Af Amer) > 60 Glucose 106 Calcium 9.0 Magnesium 1.9 09/04/17 09/04/17 09/05/17 23:48 23:48 06:08 Creatine Kinase 110 104 Troponin I 0.069 NT-Pro-B Natriuret Pep 09/05/17 09/05/17 09/05/17 06:08 06:08 11:43 Creatine Kinase 84 Troponin I 0.060 NT-Pro-B Natriuret Pep 3770 H 09/05/17 09/06/17 09/07/17 11:43 06:00 05:39 Creatine Kinase Troponin I 0.047 NT-Pro-B Natriuret Pep 2650 H 1620 H Impressions: Abdomen/Pelvis CT 09/04/17 12:49 IMPRESSION: DIFFUSE SUBCUTANEOUS STRANDING INVOLVING THE ABDOMINAL PANNUS COMPATIBLE WITH CELLULITIS. NO DRAINABLE FLUID COLLECTION/ABSCESS. LEFT-SIDED NEPHROLITHIASIS WITHOUT LOWER URINARY TRACT STONES OR HYDRONEPHROSIS. Chest X-Ray 09/04/17 15:23 IMPRESSION: NO ACUTE RADIOGRAPHIC FINDING IN THE CHEST. MARKED CARDIOMEGALY Chest/Abdomen CTA 09/07/17 10:32 IMPRESSION: Bibasilar atelectasis. No CT evidence of acute pulmonary emboli. Assessment & Plan - Diagnosis (1) Acute hypercapnic respiratory failure Is this a current diagnosis for this admission?: Yes Plan: Hypercapnia improved; pH unchanged As result of patient noting a poor or uncomfortable fitting mask and Per my instructions [facility] respiratory has refitted NIPPV mask to insure compliance, comfort and optimum fit [facility] has provided this as a free service and free samples (2) Dyspnea on exertion Is this a current diagnosis for this admission?: Yes Plan: per CTA no PE (3) Nicotine dependence Is this a current diagnosis for this admission?: Yes Plan: Transdermal nicotine as you are doing (4) OPAL (obstructive sleep apnea) Is this a current diagnosis for this admission?: Yes Plan: Nightly BiPAP oh whenever patient is asleep (5) Obesity Qualifiers: Obesity type: unspecified obesity type Obesity classification: unspecified obesity classification Is this a current diagnosis for this admission?: Yes (6) Pulmonary hypertension Is this a current diagnosis for this admission?: Yes Plan: see cath report
[2017-09-08] MEDS: FUROSEMIDE INJ/PF 100 MG/10 ML SDV IV SCH (11:26)
--- NOTE | 2017-09-08 12:27 | PDOC PROGRESS REPORT ---
Subjective Progress Note for:: 09/08/17 Subjective:: Up brushing his teeth on nasal cannula. Comfortable. His only complaint is his left eye which had some sort of trauma related to his BiPAP mask earlier this hospitalization. Reason For Visit: NEW ONSET CHF, ABDOMINAL WALL CELLULITIS Physical Exam Vital Signs: Temp Pulse Resp BP Pulse Ox 97.7 F 95 20 115/60 92 09/08/17 05:07 09/08/17 07:44 09/08/17 07:44 09/08/17 05:07 09/08/17 07:44 Pulse Oximeter Continuous Start: 09/05/17 17: 15 Freq: RTQ4 Status: Active Document 09/08/17 07:44 TPO (Rec: 09/08/17 07:54 TPO [email or web address]) Pulse Oximetry Assessment Oxygen Saturation (92-100) 92 Oxygen Delivery Method AVAP Fraction of Inspired Oxygen (FIO2) 30 Equipment Usage Equipment in Use Continuous SpO2 Machine # 10 Intake & Output 09/07/17 09/08/17 09/09/17 06:59 06:59 06:59 Intake Total 3586 3947 Output Total 6175 6750 Balance -0596 -2312 Weight 167.7 kg 162.794 kg General appearance: PRESENT: no acute distress, morbidly obese Eye exam: PRESENT: conjunctival injection - Left eye, EOMI Respiratory exam: PRESENT: clear to auscultation meron, decreased breath sounds Cardiovascular exam: PRESENT: RRR GI/Abdominal exam: PRESENT: soft Extremities exam: PRESENT: +2 edema - Below the knees bilaterally even with YURI hose on Musculoskeletal exam: PRESENT: normal inspection Neurological exam: PRESENT: alert Psychiatric exam: PRESENT: appropriate affect Skin exam: PRESENT: other - The bottom of his abdominal panniculus is hyperemic. No discrete lesions were noted Results Laboratory Results: 09/08/17 05:42 09/08/17 05:42 09/08/17 09/08/17 09/08/17 05:42 05:42 05:50 WBC 7.7 RBC 4.98 Hgb 14.5 Hct 44.1 MCV 89 MCH 29.1 MCHC 32.9 RDW 15.2 H Plt Count 217 Seg Neutrophils % 74.0 Lymphocytes % 10.6 L Monocytes % 11.1 Eosinophils % 3.8 Basophils % 0.5 Absolute Neutrophils 5.7 Absolute Lymphocytes 0.8 Absolute Monocytes 0.9 Absolute Eosinophils 0.3 Absolute Basophils 0.0 Carbonic Acid 2.27 H HCO3/H2CO3 Ratio 17:1 ABG pH 7.34 L ABG pCO2 75.4 H* ABG pO2 65.9 L ABG HCO3 39.6 H ABG O2 Saturation 90.9 L ABG Base Excess 10.3 FiO2 30% Sodium 141.3 Potassium 4.0 Chloride 90 L Carbon Dioxide 45 H* Anion Gap 6 BUN 16 Creatinine 0.73 Est GFR ( Amer) > 60 Est GFR (Non-Af Amer) > 60 Glucose 106 Calcium 9.0 Magnesium 1.9 09/04/17 09/04/17 09/05/17 23:48 23:48 06:08 Creatine Kinase 110 104 Troponin I 0.069 NT-Pro-B Natriuret Pep 09/05/17 09/05/17 09/05/17 06:08 06:08 11:43 Creatine Kinase 84 Troponin I 0.060 NT-Pro-B Natriuret Pep 3770 H 09/05/17 09/06/17 09/07/17 11:43 06:00 05:39 Creatine Kinase Troponin I 0.047 NT-Pro-B Natriuret Pep 2650 H 1620 H Impressions: Abdomen/Pelvis CT 09/04/17 12:49 IMPRESSION: DIFFUSE SUBCUTANEOUS STRANDING INVOLVING THE ABDOMINAL PANNUS COMPATIBLE WITH CELLULITIS. NO DRAINABLE FLUID COLLECTION/ABSCESS. LEFT-SIDED NEPHROLITHIASIS WITHOUT LOWER URINARY TRACT STONES OR HYDRONEPHROSIS. Chest X-Ray 09/04/17 15:23 IMPRESSION: NO ACUTE RADIOGRAPHIC FINDING IN THE CHEST. MARKED CARDIOMEGALY Chest/Abdomen CTA 09/07/17 10:32 IMPRESSION: Bibasilar atelectasis. No CT evidence of acute pulmonary emboli. Assessment & Plan - Diagnosis (1) Acute diastolic (congestive) heart failure Is this a current diagnosis for this admission?: Yes Plan: I will re-time his Lasix so that he is done urinating by bedtime. I would hope that we could get his Figueredo catheter out. (2) Acute hypercapnic respiratory failure Is this a current diagnosis for this admission?: Yes Plan: BiPAP, inhaled steroids, empiric antibiotics, nebulizers, wean oxygen as tolerated. (3) Morbid obesity Is this a current diagnosis for this admission?: Yes (4) Obesity hypoventilation syndrome Is this a current diagnosis for this admission?: Yes (5) Pulmonary hypertension Is this a current diagnosis for this admission?: Yes (6) Abdominal wall cellulitis Is this a current diagnosis for this admission?: Yes Plan: I am not convinced this is cellulitis as opposed to dependent hyperemia. Continue empiric antibiotics for now.
--- NOTE | 2017-09-08 15:18 | Progress Note ---
Provider Note Provider Note: ID Consult Note Asked to review the patient's chart by Pharmacy. Pt not seen and examined. Reviewed VS, labs, imaging reports, provider reports. Mr Saldaña is a morbidly obese man who presented on 09/04/17 with complaints of progressively worsened SOB. He denied f/c. He was diagnosed with new onset CHF. He also was appreciated to have diffuse abdominal wall erythema and mild induration. A CT scan was read as showing diffuse subcutaneous stranding involving the abdominal wall but no drainable fluid or abscess. He has had no fever. His WBC count has been normal. Blood cultures have been normal. He was initially treated with Ancef for cellulitis. According to the provider report on 09/06, the abdominal wall cellulitis appeared to be improving. However on 09/06, Ancef was changed to vancomycin and Levaquin. Impression/Recommendations Abdominal wall cellulitis, nonpurulent - Diffuse erythema, no furuncles or abscess; improvement on his initial therapy IV Ancef - Strep species are a major causes of nonpurulent cellulitis. Treatment with Ancef or Keflex is usually sufficient. Treatment with anti-MRSA drugs is generally not needed for nonpurulent cellulitis. If there is pus, it should be drained and cultured. Purulent cellulitis would raise suspicion instead for MRSA, or if the patient had failed to improve with treatment aimed at Strep/MSSA , then an antibiotic with MRSA activity might be needed. Based on the improvement documented in provider notes while on Ancef, that does not appear to be the case here. Antibiotics directed against Gram negative organisms are also generally not required for cellulitis outside of specific circumstances that also do not appear to apply here. - Recommend de-escalating from vancomycin/Levaquin to Ancef. - If the patient has a pannus and skin breakdown between abdominal skin folds, this may be a potential portal of entry for bacteria and could predispose to cellulitis. In this situation, efforts to decrease moisture between the folds would be helpful and/or topical antifungal therapy if there is intertrigo that has a typical appearance for candidal intertrigo. - Duration of therapy should be guided by clinical response, but may be in the range of 7-10 days in total. Brandon Mcallister MD [facility] Infectious Diseases pager [phone]
[2017-09-08] MEDS ORDERED: FUROSEMIDE INJ/PF 100 MG/10 ML SDV IV ONE (16:00)
[2017-09-08] MEDS ORDERED: LEVOFLOXACIN 750 MG TABLET PO SCH (22:00)
[2017-09-09] MEDS: ERYTHROMYCIN 0.5% OPH OINTMENT 3.5 GM TUBE OS SCH ×5 (00:05→23:23)
[2017-09-09] MEDS: VANCOMYCIN HCL 1,500 MG in DEXTROSE 5%-WATER 250 ML IV SCH ×2 (01:42→11:22)
[2017-09-09] MEDS: FUROSEMIDE INJ/PF 100 MG/10 ML SDV IV SCH ×2 (08:34→13:22)
--- NOTE | 2017-09-09 09:46 | PDOC PROGRESS REPORT ---
Subjective Progress Note for:: 09/07/17 Subjective:: Showing daily improvement in CHF and edema. However patient Still has significant generalized edema. Patient seems to be doing better with gradual improvement. Pt is denying any chest arm or neck discomfort. Patient denying any PND, orthopnea. Patient denied any sustained palpitations, dizziness, syncope, near syncope. Patient denying any fever chills. Patient denying any other significant discomfort. Patient is maintaining sinus rhythm. Review of systems: Rest review of systems negative. Medications: Medications have been reviewed. Reason For Visit: NEW ONSET CHF, ABDOMINAL WALL CELLULITIS Physical Exam Vital Signs: Temp Pulse Resp BP Pulse Ox 98.6 F 86 18 140/80 H 94 09/07/17 19:38 09/07/17 20:13 09/07/17 19:38 09/07/17 19:38 09/07/17 19:38 Pulse Oximeter Continuous Start: 09/05/17 17: 15 Freq: RTQ4 Status: Active Document 09/07/17 16:43 [facility] (Rec: 09/07/17 18:44 [facility] [email or web address]) Pulse Oximetry Assessment Oxygen Saturation (92-100) 93 Oxygen Delivery Method AVAP Fraction of Inspired Oxygen (FIO2) 30 Equipment Usage Equipment in Use Continuous SpO2 Machine # N-10 Intake & Output 09/06/17 09/07/17 09/08/17 06:59 06:59 06:59 Intake Total 2535 3586 2186 Output Total 2300 6175 2600 Balance 235 -2589 -414 Weight 166 kg 167.7 kg Exam: GENERAL: well-nourished and in no acute distress. Alert and oriented x3 HEAD: Atraumatic, normocephalic. EYES: Pupils equal round and reactive to light, extraocular movements intact, sclera anicteric, conjunctiva are normal. ENT: TMs normal, nares patent, oropharynx clear without exudates. Moist mucous membranes. No oral ulcerations or bleeding gums noted NECK: supple without lymphadenopathy. Trachea is central. No cervical or axillary lymphadenopathy noted. Carotids are 2+, JVD 8-10 cm LUNGS: Respiration seems nonlabored, no significant accessory muscle action noted. Breath sounds clear to auscultation bilaterally and equal noted. No wheezes rales or rhonchi noted. No significant dullness noted on percussion. CHEST: Palpation of the chest wall shows no significant chest wall tenderness. HEART: [place] ORTHOTIC AIDE, No PSH, 1/6 PRAVIN aortic area, 1/6 pedraza systolic murmur mitral area, no rubs, no gallops. ABDOMEN: Soft, no significant tenderness appreciated, normoactive bowel sounds. No guarding, no rebound. No rigidity noted . No masses appreciated. Abdominal wall cellulitis noted. EXTREMITIES: Pedal pulses are 1-2+, no calf tenderness noted. No clubbing or cyanosis. 2+ pedal edema noted NEUROLOGICAL: Focused neurological exam showed no significant neurologic deficit. Normal speech, no focal weakness appreciated. PSYCH: Normal mood, normal affect. Judgment and insight within normal limits. SKIN: No significant ecchymosis, skin is noted to be warm. MUSCULOSKELETAL EXAM: No significant acute joint swelling noted. Results Laboratory Results: 09/07/17 05:39 09/07/17 05:39 09/07/17 09/07/17 09/07/17 05:39 05:39 05:45 WBC 8.3 RBC 4.81 Hgb 14.0 Hct 43.0 MCV 90 MCH 29.1 MCHC 32.5 RDW 15.0 H Plt Count 216 Seg Neutrophils % 76.0 Lymphocytes % 10.1 L Monocytes % 10.7 Eosinophils % 2.7 Basophils % 0.5 Absolute Neutrophils 6.3 Absolute Lymphocytes 0.8 Absolute Monocytes 0.9 Absolute Eosinophils 0.2 Absolute Basophils 0.0 Carbonic Acid 2.86 H HCO3/H2CO3 Ratio 16:1 ABG pH 7.32 L ABG pCO2 95.1 H* ABG pO2 65.8 L ABG HCO3 48.1 H ABG O2 Saturation 89.9 L ABG Base Excess 16.8 FiO2 40% Sodium 143.6 Potassium 4.2 Chloride 92 L Carbon Dioxide 45 H* Anion Gap 7 BUN 23 H Creatinine 0.89 Est GFR ( Amer) > 60 Est GFR (Non-Af Amer) > 60 Glucose 110 Calcium 8.7 Phosphorus 4.8 H Magnesium 1.9 09/04/17 09/04/17 09/05/17 23:48 23:48 06:08 Creatine Kinase 110 104 Troponin I 0.069 NT-Pro-B Natriuret Pep 09/05/17 09/05/17 09/05/17 06:08 06:08 11:43 Creatine Kinase 84 Troponin I 0.060 NT-Pro-B Natriuret Pep 3770 H 09/05/17 09/06/17 09/07/17 11:43 06:00 05:39 Creatine Kinase Troponin I 0.047 NT-Pro-B Natriuret Pep 2650 H 1620 H Impressions: Abdomen/Pelvis CT 09/04/17 12:49 IMPRESSION: DIFFUSE SUBCUTANEOUS STRANDING INVOLVING THE ABDOMINAL PANNUS COMPATIBLE WITH CELLULITIS. NO DRAINABLE FLUID COLLECTION/ABSCESS. LEFT-SIDED NEPHROLITHIASIS WITHOUT LOWER URINARY TRACT STONES OR HYDRONEPHROSIS. Chest X-Ray 09/04/17 15:23 IMPRESSION: NO ACUTE RADIOGRAPHIC FINDING IN THE CHEST. MARKED CARDIOMEGALY Chest/Abdomen CTA 09/07/17 10:32 IMPRESSION: Bibasilar atelectasis. No CT evidence of acute pulmonary emboli. Assessment & Plan - Diagnosis (1) Congestive heart failure (CHF) Qualifiers: Heart failure type: unspecified Heart failure chronicity: acute on chronic Qualified Code(s): I50.9 - Heart failure, unspecified Is this a current diagnosis for this admission?: Yes (2) Abdominal wall cellulitis Is this a current diagnosis for this admission?: Yes (3) Dyspnea on exertion Is this a current diagnosis for this admission?: Yes (4) Edema, peripheral Is this a current diagnosis for this admission?: Yes (5) OPAL (obstructive sleep apnea) Is this a current diagnosis for this admission?: Yes (6) Obesity Qualifiers: Obesity type: unspecified obesity type Obesity classification: unspecified obesity classification Is this a current diagnosis for this admission?: Yes - Notes Notes: He still has significant fluid overload. Continue with IV diuretic therapy. 2D echocardiogram shows RV dysfunction. Patient will benefit from continued nightly CPAP/BiPAP therapy. Patient will also benefit from significant weight loss. Abdominal cellulitis seems to be improving. Congestive heart failure: Seems predominantly right-sided. This is based on chest x-ray and CT scan reviewed. At this point agree with IV diuretics. Agree with diuretic therapy, salt and fluid restriction, positive pressure noninvasive ventilation. May also consider arterial blood gases. Abdominal wall cellulitis: Continue with antibiotic therapy. Seems to be improving. Dyspnea on exertion: Related to CHF, patient may have underlying COPD, obesity also contributing. Pedal edema: Most likely related to CHF with some venous insufficiency and dependency contributing. Obstructive sleep apnea: Patient felt to have severe obstructive sleep apnea. Continue with nightly CPAP therapy. Will try to obtain previous sleep apnea evaluation results. Obesity: Patient noted to have superobesity. Patient will benefit from aggressive weight loss. Discussed that weight loss will help multitudes of his problem
[2017-09-09] MEDS: BUDESONIDE NEB 0.5 MG/2 ML AMPUL NEB SCH ×2 (09:47→20:51)
--- NOTE | 2017-09-09 09:54 | PDOC PROGRESS REPORT ---
Subjective Progress Note for:: 09/08/17 Subjective:: Showing daily improvement in CHF and edema. However patient Still has significant generalized edema. Patient seems to be doing better with gradual improvement. Pt is denying any chest arm or neck discomfort. Patient denying any PND, orthopnea. Patient denied any sustained palpitations, dizziness, syncope, near syncope. Patient denying any fever chills. Patient denying any other significant discomfort. Patient is maintaining sinus rhythm. Review of systems: Rest review of systems negative. Medications: Medications have been reviewed. Reason For Visit: NEW ONSET CHF, ABDOMINAL WALL CELLULITIS Physical Exam Vital Signs: Temp Pulse Resp BP Pulse Ox 97.9 F 94 15 136/90 H 91 L 09/08/17 15:07 09/08/17 20:06 09/08/17 16:15 09/08/17 15:07 09/08/17 16:15 Pulse Oximeter Continuous Start: 09/05/17 17: 15 Freq: RTQ4 Status: Active Document 09/08/17 16:15 [facility] (Rec: 09/08/17 17:16 [facility] [email or web address]) Pulse Oximetry Assessment Oxygen Saturation (92-100) 91 Oxygen Delivery Method AVAP Fraction of Inspired Oxygen (FIO2) 30 Equipment Usage Equipment in Use Continuous SpO2 Machine # N-10 Intake & Output 09/07/17 09/08/17 09/09/17 06:59 06:59 06:59 Intake Total 3586 3947 1475 Output Total 6175 6750 4500 Balance -7409 -2773 -9782 Weight 167.7 kg 162.794 kg Exam: GENERAL: well-nourished and in no acute distress. Alert and oriented x3 HEAD: Atraumatic, normocephalic. EYES: Pupils equal round and reactive to light, extraocular movements intact, sclera anicteric, conjunctiva are normal. ENT: TMs normal, nares patent, oropharynx clear without exudates. Moist mucous membranes. No oral ulcerations or bleeding gums noted NECK: supple without lymphadenopathy. Trachea is central. No cervical or axillary lymphadenopathy noted. Carotids are 2+, JVD 10 cm LUNGS: Respiration seems nonlabored, no significant accessory muscle action noted. Breath sounds clear to auscultation bilaterally and equal noted. No wheezes rales or rhonchi noted. No significant dullness noted on percussion. CHEST: Palpation of the chest wall shows no significant chest wall tenderness. HEART: Lolita CLAMPER, No PSH, 1/6 PRAVIN aortic area, 1/6 pedraza systolic murmur mitral area, no rubs, no gallops. ABDOMEN: Soft, no significant tenderness appreciated, normoactive bowel sounds. No guarding, no rebound. No rigidity noted . No masses appreciated. Abdominal wall cellulitis noted, improving. EXTREMITIES: Pedal pulses are 1-2+, no calf tenderness noted. No clubbing or cyanosis. 2+ pedal edema noted NEUROLOGICAL: Focused neurological exam showed no significant neurologic deficit. Normal speech, no focal weakness appreciated. PSYCH: Normal mood, normal affect. Judgment and insight within normal limits. SKIN: No significant ecchymosis, skin is noted to be warm. MUSCULOSKELETAL EXAM: No significant acute joint swelling noted. Results Laboratory Results: 09/08/17 05:42 09/08/17 05:42 09/08/17 09/08/17 09/08/17 05:42 05:42 05:50 WBC 7.7 RBC 4.98 Hgb 14.5 Hct 44.1 MCV 89 MCH 29.1 MCHC 32.9 RDW 15.2 H Plt Count 217 Seg Neutrophils % 74.0 Lymphocytes % 10.6 L Monocytes % 11.1 Eosinophils % 3.8 Basophils % 0.5 Absolute Neutrophils 5.7 Absolute Lymphocytes 0.8 Absolute Monocytes 0.9 Absolute Eosinophils 0.3 Absolute Basophils 0.0 Carbonic Acid 2.27 H HCO3/H2CO3 Ratio 17:1 ABG pH 7.34 L ABG pCO2 75.4 H* ABG pO2 65.9 L ABG HCO3 39.6 H ABG O2 Saturation 90.9 L ABG Base Excess 10.3 FiO2 30% Sodium 141.3 Potassium 4.0 Chloride 90 L Carbon Dioxide 45 H* Anion Gap 6 BUN 16 Creatinine 0.73 Est GFR ( Amer) > 60 Est GFR (Non-Af Amer) > 60 Glucose 106 Calcium 9.0 Magnesium 1.9 09/04/17 09/04/17 09/05/17 23:48 23:48 06:08 Creatine Kinase 110 104 Troponin I 0.069 NT-Pro-B Natriuret Pep 09/05/17 09/05/17 09/05/17 06:08 06:08 11:43 Creatine Kinase 84 Troponin I 0.060 NT-Pro-B Natriuret Pep 3770 H 09/05/17 09/06/17 09/07/17 11:43 06:00 05:39 Creatine Kinase Troponin I 0.047 NT-Pro-B Natriuret Pep 2650 H 1620 H Impressions: Abdomen/Pelvis CT 09/04/17 12:49 IMPRESSION: DIFFUSE SUBCUTANEOUS STRANDING INVOLVING THE ABDOMINAL PANNUS COMPATIBLE WITH CELLULITIS. NO DRAINABLE FLUID COLLECTION/ABSCESS. LEFT-SIDED NEPHROLITHIASIS WITHOUT LOWER URINARY TRACT STONES OR HYDRONEPHROSIS. Chest X-Ray 09/04/17 15:23 IMPRESSION: NO ACUTE RADIOGRAPHIC FINDING IN THE CHEST. MARKED CARDIOMEGALY Chest/Abdomen CTA 09/07/17 10:32 IMPRESSION: Bibasilar atelectasis. No CT evidence of acute pulmonary emboli. Assessment & Plan - Diagnosis (1) Congestive heart failure (CHF) Qualifiers: Heart failure type: unspecified Heart failure chronicity: acute on chronic Qualified Code(s): I50.9 - Heart failure, unspecified Is this a current diagnosis for this admission?: Yes (2) Abdominal wall cellulitis Is this a current diagnosis for this admission?: Yes (3) Dyspnea on exertion Is this a current diagnosis for this admission?: Yes (4) Edema, peripheral Is this a current diagnosis for this admission?: Yes (5) OPAL (obstructive sleep apnea) Is this a current diagnosis for this admission?: Yes (6) Obesity Qualifiers: Obesity type: unspecified obesity type Obesity classification: unspecified obesity classification Is this a current diagnosis for this admission?: Yes (7) Ventricular dysrhythmia Is this a current diagnosis for this admission?: Yes (8) Acute on chronic respiratory failure with hypercapnia Is this a current diagnosis for this admission?: Yes - Notes Notes: NST scheduled for CHF and increased ventricular ectopy. He still has significant fluid overload. Continue with IV diuretic therapy. Patient will benefit from continued nightly CPAP/BiPAP therapy. Patient will also benefit from significant weight loss. Abdominal cellulitis seems to be improving. Congestive heart failure: Seems predominantly right-sided. 2DEcho confirms this. Agree with diuretic therapy, salt and fluid restriction, positive pressure noninvasive ventilation. May also consider arterial blood gases. Abdominal wall cellulitis: Continue with antibiotic therapy. Seems to be improving. Dyspnea on exertion: Related to CHF, patient may have underlying COPD, obesity also contributing. Pedal edema: Most likely related to CHF with some venous insufficiency and dependency contributing. Obstructive sleep apnea: Patient felt to have severe obstructive sleep apnea. Continue with nightly CPAP therapy. Will try to obtain previous sleep apnea evaluation results. Obesity: Patient noted to have superobesity. Patient will benefit from aggressive weight loss. Discussed that weight loss will help multitudes of his problem Ventricular dysrhythmia: Patient noted to have intermittent ventricular bigeminy pattern. Possibly related to CHF but could well have underlying CAD. Patient to be scheduled for a nuclear stress test. Respiratory failure acute on chronic hypercapnic: Most likely related to obesity hypoventilation syndrome, with contribution from COPD and CHF. Consider pulmonary evaluation. - Time Time with patient: Greater than 35 minutes - CODE STATUS was discussed, patient remains full code. Surrogate decision-maker unchanged. Multiple medical problems were addressed. More than 50% of the time spent coordinating care, discussing management plans with involved caregivers. Management plans discussed with involved personnels. Medical decision making was of moderate to high complexity, patient's has multiple comorbidities. Medications reviewed and adjusted accordingly: Yes
[2017-09-09] MEDS: LOSARTAN POTASSIUM 25 MG TABLET PO SCH (11:22)
[2017-09-09] MEDS: LACTOBACILLUS ACIDOPHILUS 250 MG TAB PO SCH ×2 (11:22→18:06)
[2017-09-09] MEDS: ENOXAPARIN SODIUM INJ 40 MG/0.4 ML DISP.SYRIN SUBCUT SCH (11:22)
[2017-09-09] MEDS: MAGNESIUM OXIDE 400 MG TABLET PO SCH ×2 (11:23→18:06)
--- NOTE | 2017-09-09 12:19 | PDOC PROGRESS REPORT ---
Subjective Progress Note for:: 09/09/17 Subjective:: Patient today underwent nuclear stress test without any complications. Nuclear findings are pending. Patient had stress images performed today. He will have rest images performed tomorrow. Showing daily improvement in CHF and edema. However patient Still has significant generalized edema. Patient seems to be doing better with gradual improvement. Pt is denying any chest arm or neck discomfort. Patient denying any PND, orthopnea. Patient denied any sustained palpitations, dizziness, syncope, near syncope. Patient denying any fever chills. Patient denying any other significant discomfort. Patient is maintaining sinus rhythm. Frequent ventricular ectopy often in bigeminy pattern is still noted. Review of systems: Rest review of systems negative. Medications: Medications have been reviewed. Reason For Visit: NEW ONSET CHF, ABDOMINAL WALL CELLULITIS Physical Exam Vital Signs: Temp Pulse Resp BP Pulse Ox 97.9 F 80 20 140/81 H 86 L 09/09/17 07:16 09/09/17 07:16 09/09/17 07:16 09/09/17 07:16 09/09/17 07:16 Pulse Oximeter Continuous Start: 09/05/17 17: 15 Freq: RTQ4 Status: Active Document 09/09/17 08:00 JDR (Rec: 09/09/17 09:50 JDR [email or web address]) Pulse Oximetry Assessment Equipment Usage Equipment Standby Continuous SpO2 Machine # 10 Additional RT Notes Other pt out of room for procedure Intake & Output 09/08/17 09/09/17 09/10/17 06:59 06:59 06:59 Intake Total 3944 2986 Output Total 2207 4320 Balance -2803 -2961 Weight 162.794 kg 156.9 kg Exam: GENERAL: well-nourished and in no acute distress. Alert and oriented x3 HEAD: Atraumatic, normocephalic. EYES: Pupils equal round and reactive to light, extraocular movements intact, sclera anicteric, conjunctiva are normal. ENT: TMs normal, nares patent, oropharynx clear without exudates. Moist mucous membranes. No oral ulcerations or bleeding gums noted NECK: supple without lymphadenopathy. Trachea is central. No cervical or axillary lymphadenopathy noted. Carotids are 2+, JVD 8 cm LUNGS: Respiration seems nonlabored, no significant accessory muscle action noted. Few bibasilar fine crackles and few a scattered wheezes rales or rhonchi noted. No significant dullness noted on percussion. CHEST: Palpation of the chest wall shows no significant chest wall tenderness. 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 ABDOMEN: Soft, no significant tenderness appreciated, normoactive bowel sounds. No guarding, no rebound. No rigidity noted . No masses appreciated. EXTREMITIES: Pedal pulses are 1-2+, no calf tenderness noted. No clubbing or cyanosis. 2+ pedal edema noted NEUROLOGICAL: Focused neurological exam showed no significant neurologic deficit. Normal speech, no focal weakness appreciated. PSYCH: Normal mood, normal affect. Judgment and insight within normal limits. SKIN: No significant ecchymosis, skin is noted to be warm. MUSCULOSKELETAL EXAM: No significant acute joint swelling noted. Results Laboratory Results: 09/08/17 05:42 09/08/17 05:42 09/04/17 09/04/17 09/05/17 23:48 23:48 06:08 Creatine Kinase 110 104 Troponin I 0.069 NT-Pro-B Natriuret Pep 09/05/17 09/05/17 09/05/17 06:08 06:08 11:43 Creatine Kinase 84 Troponin I 0.060 NT-Pro-B Natriuret Pep 3770 H 09/05/17 09/06/17 09/07/17 11:43 06:00 05:39 Creatine Kinase Troponin I 0.047 NT-Pro-B Natriuret Pep 2650 H 1620 H EKG Comments: Shows sinus rhythm with frequent ventricular ectopy and bigeminy pattern. Impressions: Abdomen/Pelvis CT 09/04/17 12:49 IMPRESSION: DIFFUSE SUBCUTANEOUS STRANDING INVOLVING THE ABDOMINAL PANNUS COMPATIBLE WITH CELLULITIS. NO DRAINABLE FLUID COLLECTION/ABSCESS. LEFT-SIDED NEPHROLITHIASIS WITHOUT LOWER URINARY TRACT STONES OR HYDRONEPHROSIS. Chest X-Ray 09/04/17 15:23 IMPRESSION: NO ACUTE RADIOGRAPHIC FINDING IN THE CHEST. MARKED CARDIOMEGALY Chest/Abdomen CTA 09/07/17 10:32 IMPRESSION: Bibasilar atelectasis. No CT evidence of acute pulmonary emboli. Assessment & Plan - Diagnosis (1) Congestive heart failure (CHF) Qualifiers: Heart failure type: unspecified Heart failure chronicity: acute on chronic Qualified Code(s): I50.9 - Heart failure, unspecified Is this a current diagnosis for this admission?: Yes (2) Abdominal wall cellulitis Is this a current diagnosis for this admission?: Yes (3) Dyspnea on exertion Is this a current diagnosis for this admission?: Yes (4) Edema, peripheral Is this a current diagnosis for this admission?: Yes (5) OPAL (obstructive sleep apnea) Is this a current diagnosis for this admission?: Yes (6) Obesity Qualifiers: Obesity type: unspecified obesity type Obesity classification: unspecified obesity classification Is this a current diagnosis for this admission?: Yes (7) Ventricular dysrhythmia Is this a current diagnosis for this admission?: Yes (8) Acute on chronic respiratory failure with hypercapnia Is this a current diagnosis for this admission?: Yes - Notes Notes: NST performed today, results to be available tomorrow after rest imaging are completed. NST was scheduled for for CHF and increased ventricular ectopy. 2D echo results discussed with the patient. He still has significant fluid overload. Continue with IV diuretic therapy. Patient will benefit from continued nightly CPAP/BiPAP therapy. Patient will also benefit from significant weight loss. Abdominal cellulitis seems to be improving. Patient was started on losartan. Congestive heart failure: Seems predominantly right-sided. 2DEcho confirms this. Agree with diuretic therapy, salt and fluid restriction, positive pressure noninvasive ventilation. May also consider arterial blood gases. Abdominal wall cellulitis: Continue with antibiotic therapy. Seems to be improving. Dyspnea on exertion: Related to CHF, patient may have underlying COPD, obesity also contributing. Pedal edema: Most likely related to CHF with some venous insufficiency and dependency contributing. Obstructive sleep apnea: Patient felt to have severe obstructive sleep apnea. Continue with nightly CPAP therapy. Will try to obtain previous sleep apnea evaluation results. Obesity: Patient noted to have superobesity. Patient will benefit from aggressive weight loss. Discussed that weight loss will help multitudes of his problem Ventricular dysrhythmia: Patient noted to have intermittent ventricular bigeminy pattern. Possibly related to CHF but could well have underlying CAD. Patient to be scheduled for a nuclear stress test. Respiratory failure acute on chronic hypercapnic: Most likely related to obesity hypoventilation syndrome, with contribution from COPD and CHF. Consider pulmonary evaluation. - Time Time with patient: Greater than 35 minutes - Nuclear stress test risk procedures benefits etc. were discussed. CODE STATUS was discussed, patient remains full code. Surrogate decision-maker unchanged. Multiple medical problems were addressed. More than 50% of the time spent coordinating care, discussing management plans with involved caregivers. Management plans discussed with involved personnels. Medical decision making was of moderate to high complexity, patient's has multiple comorbidities. Medications reviewed and adjusted accordingly: Yes
[2017-09-09] MEDS: OXYCODONE-ACETAMINOPHEN 5-325 MG TABLET PO PRN ×3 (13:21→23:24)
[2017-09-09] MEDS ORDERED: REGADENOSON INJ 0.4 MG/5 ML DISP.SYRIN IV ONE (15:20)
[2017-09-09] MEDS ORDERED: AMINOPHYLLINE INJ/PF 250 MG/10 ML SDV IV ONE (15:20)
[2017-09-09] MEDS: CEPHALEXIN 500 MG CAPSULE PO SCH ×2 (18:06→23:22)
--- NOTE | 2017-09-09 18:15 | PDOC PROGRESS REPORT ---
Subjective Progress Note for:: 09/09/17 Subjective:: No current complaints. Reports continuing to feel better daily. He had his resting images done today and will complete his stress test tomorrow. Reason For Visit: NEW ONSET CHF, ABDOMINAL WALL CELLULITIS Physical Exam Vital Signs: Temp Pulse Resp BP Pulse Ox 97.3 F 92 20 126/64 H 86 L 09/09/17 15:11 09/09/17 15:11 09/09/17 15:11 09/09/17 15:11 09/09/17 15:11 Pulse Oximeter Continuous Start: 09/05/17 17: 15 Freq: RTQ4 Status: Active Document 09/09/17 12:00 JDR (Rec: 09/09/17 12:20 JDR [email or web address]) Pulse Oximetry Assessment Equipment Usage Equipment Standby Continuous SpO2 Machine # 10 Additional RT Notes Other pt resting without distress Intake & Output 09/08/17 09/09/17 09/10/17 06:59 06:59 06:59 Intake Total 3944 2986 712 Output Total 6750 6600 3000 Balance -2803 -3614 -2288 Weight 358 lb 14.4 oz 345 lb 14.484 oz General appearance: PRESENT: no acute distress, morbidly obese Eye exam: PRESENT: conjunctival injection - Left eye following misadventure with his BiPAP earlier in his stay. Erythema is improving Respiratory exam: PRESENT: clear to auscultation meron, prolonged expiratory phas , other - Distant breath sounds. ABSENT: wheezes Cardiovascular exam: PRESENT: RRR GI/Abdominal exam: PRESENT: soft Extremities exam: PRESENT: other - Bilateral woody edema below the knees Musculoskeletal exam: PRESENT: normal inspection Neurological exam: PRESENT: alert Psychiatric exam: PRESENT: appropriate affect Skin exam: PRESENT: dry, warm Results Laboratory Results: 09/08/17 05:42 09/08/17 05:42 09/04/17 09/04/17 09/05/17 23:48 23:48 06:08 Creatine Kinase 110 104 Troponin I 0.069 NT-Pro-B Natriuret Pep 09/05/17 09/05/17 09/05/17 06:08 06:08 11:43 Creatine Kinase 84 Troponin I 0.060 NT-Pro-B Natriuret Pep 3770 H 09/05/17 09/06/17 09/07/17 11:43 06:00 05:39 Creatine Kinase Troponin I 0.047 NT-Pro-B Natriuret Pep 2650 H 1620 H Impressions: Abdomen/Pelvis CT 09/04/17 12:49 IMPRESSION: DIFFUSE SUBCUTANEOUS STRANDING INVOLVING THE ABDOMINAL PANNUS COMPATIBLE WITH CELLULITIS. NO DRAINABLE FLUID COLLECTION/ABSCESS. LEFT-SIDED NEPHROLITHIASIS WITHOUT LOWER URINARY TRACT STONES OR HYDRONEPHROSIS. Chest X-Ray 09/04/17 15:23 IMPRESSION: NO ACUTE RADIOGRAPHIC FINDING IN THE CHEST. MARKED CARDIOMEGALY Chest/Abdomen CTA 09/07/17 10:32 IMPRESSION: Bibasilar atelectasis. No CT evidence of acute pulmonary emboli. Assessment & Plan - Diagnosis (1) Acute diastolic (congestive) heart failure Is this a current diagnosis for this admission?: Yes Plan: Continue diuresis (2) Acute hypercapnic respiratory failure Is this a current diagnosis for this admission?: Yes Plan: BiPAP, inhaled steroids, empiric antibiotics, nebulizers, wean oxygen as tolerated. Oxygen saturations are still 86% at rest on room air. His PCO2 is down to 75 with a pH of 7.34. PO2 66 on 30% BiPAP. Since he is still having significant hypercarbic hypoxemic respiratory failure I will start him on some steroids. (3) Morbid obesity Is this a current diagnosis for this admission?: Yes (4) Obesity hypoventilation syndrome Is this a current diagnosis for this admission?: Yes (5) Pulmonary hypertension Is this a current diagnosis for this admission?: Yes (6) Abdominal wall cellulitis Is this a current diagnosis for this admission?: Yes Plan: Improving. He has erythema of the dependent portion of his abdominal panniculus that I suspect is chronic. I will de-escalate his antibiotics to Keflex
[2017-09-09] MEDS ORDERED: PREDNISONE 20 MG TABLET PO ONE (19:00)
[2017-09-09] MEDS: LEVALBUTEROL HCL NEB 0.63 MG/3 ML AMPUL NEB PRN (20:51)
[2017-09-10] MEDS: ERYTHROMYCIN 0.5% OPH OINTMENT 3.5 GM TUBE OS SCH ×3 (05:26→17:28)
[2017-09-10] MEDS: CEPHALEXIN 500 MG CAPSULE PO SCH ×3 (05:26→17:28)
[2017-09-10 06:27] LABS: ALBUMIN 3.5 g/dL (3.5-5.0); ANION GAP 9 (5-19); BLOOD UREA NITROGEN 22 mg/dL (7-20); CALCIUM 9.3 mg/dL (8.4-10.2); CARBON DIOXIDE 38 mmol/L (22-30); CHLORIDE 94 mmol/L (98-107); GLUCOSE 171 mg/dL (75-110); PHOSPHORUS 4.6 mg/dL (2.5-4.5); POTASSIUM 4.6 mmol/L (3.6-5.0); SODIUM 141.2 mmol/L (137-145)
[2017-09-10] MEDS: BUDESONIDE NEB 0.5 MG/2 ML AMPUL NEB SCH ×2 (08:50→20:56)
[2017-09-10] MEDS: OXYCODONE-ACETAMINOPHEN 5-325 MG TABLET PO PRN ×2 (08:55→12:43)
[2017-09-10] MEDS: PREDNISONE 20 MG TABLET PO SCH (09:59)
[2017-09-10] MEDS: LACTOBACILLUS ACIDOPHILUS 250 MG TAB PO SCH (10:00)
[2017-09-10] MEDS: MAGNESIUM OXIDE 400 MG TABLET PO SCH ×2 (10:00→17:28)
[2017-09-10] MEDS: LOSARTAN POTASSIUM 25 MG TABLET PO SCH (10:01)
[2017-09-10] MEDS: FUROSEMIDE INJ/PF 100 MG/10 ML SDV IV SCH ×2 (10:02→13:54)
[2017-09-10] MEDS: ENOXAPARIN SODIUM INJ 40 MG/0.4 ML DISP.SYRIN SUBCUT SCH (10:03)
--- NOTE | 2017-09-10 10:29 | DRAGON STRESS TEST REPORT ---
INTRAVENOUS LEXISCAN CARDIOLITE STRESS TEST USING SINGLE PHOTON EMMISION COMPUTERIZED TOMOGRAPHIC. DATE OF PROCEDURE: September 09, 2017, INDICATION : CHF and cardiac dysrhythmia, increased ventricular ectopy activity CARDIAC RISK FACTORS: Hypertension, obstructive sleep apnea syndrome, tobacco abuse RESTING EKG: Sinus rhythm, right bundle branch block pattern with frequent ventricular ectopy. STRESS EKG: No significant ST segment changes noted with LexiScan bolus REASON FOR TERMINATION: Protocol. PROCEDURE REPORT: Baseline heart rate 73 beats per minute with blood pressure of 116/91. Patient had no significant complaints. Patient was bolused with Lexiscan 0.4 mg intravenously followed by saline bolus. Heart rate at 2 minutes post bolus 86 with a blood pressure of 114/78. 3 minutes post bolus heart rate 84 with blood pressure of 120/88. No significant EKG changes were noted. Patient had no significant complaints during the procedure or postprocedure. Patient injected with Aminophyllin 75 mg at 3 minutes or later after Lexiscan bolus. CONCLUSIONS: Normal EKG and hemodynamic response to IV LexiScan. NUCLEAR DATA: On day 2, rest images were performed after at rest the patient was given 42.5 millicuries of technetium 99 sestamibi injected intravenously. As per protocol rest gated SPECT images were obtained. On day 1 stress images were performed. On day of stress test, the patient was given intravenous LexiScan at a dose of 0.4 mg in 5 mL intravenously, followed by flush with normal saline. Subsequently the stress dose of 40.5 millicuries of technetium 99 sestamibi was injected intravenously. As per protocol stress gated images were obtained. NUCLEAR INTERPRETATION: Both raw and processed data were used for interpretation. Visual, qualitative, computer-generated quantitative data was used. There was good myocardial uptake of technetium compound. Motion artifact and soft tissue attenuations were noted. Increased visceral uptake was noted. Significant diaphragmatic and soft tissue attenuation was noted. Decreased uptake was noted in the inferior wall but felt to be artifactual and related to attenuation artifact, therefore no definitive areas of transient perfusion defect noted, No definitive areas of fixed perfusion defect or scars noted. Also no definitive wall motion abnormalities were noted. EKG gated imaging showed LV EF at 50 %, rest and stress gated EF similar visually. T. I D. ratio was 0.90. Lung heart ratio noted to be within normal limits 0.32. No significant extracardiac and abnormal radiotracer activities were noted. RV free wall uptake was noted to be WNL. IMPRESSION: Also refer to comments under nuclear interpretation. Also test results needs to be interpreted in the context of pretest probability. Significant diaphragmatic and soft tissue attenuation noted therefore clinical correlation is requested. 1. No definitive areas of transient perfusion defect noted. 2. There is no definitive scintigraphic evidence of myocardial infarction/scar. 3. EKG gated imaging shows left ventricular ejection fraction of approx. 50 %. 4. Clinical correlation requested as occasionally single vessel disease or balanced ischemia could be missed. In approximately 10% of the cases Lexiscan may not cause adequate vasodilatory stress. RECOMMENDATIONS: Aggressive risk factor modification and medical management. Further evaluation may be needed if continued symptoms or other high risk indicators are noted on clinical evaluation. Close cardiology follow-up is also recommended. Clinical correlation with echocardiogram derived ejection fraction. Inability to exercise by itself can lead to increased cardiovascular event risks. Consider cardiology consultation and or follow-up if clinically indicated. I am available for cardiology evaluation and consultation if requested by the physician primary care sports medicine, unless patient already has a inspector health care facilities. FRED
--- NOTE | 2017-09-10 13:06 | PDOC PROGRESS REPORT ---
Subjective Progress Note for:: 09/10/17 Subjective:: No current complaints. Reports continuing to feel better daily. Stress test was negative Reason For Visit: NEW ONSET CHF, ABDOMINAL WALL CELLULITIS Physical Exam Vital Signs: Temp Pulse Resp BP Pulse Ox 97.6 F 39 L 17 146/82 H 92 09/10/17 11:35 09/10/17 11:35 09/10/17 11:35 09/10/17 11:35 09/10/17 11:35 Pulse Oximeter Continuous Start: 09/05/17 17: 15 Freq: RTQ4 Status: Active Document 09/10/17 08:55 JDR (Rec: 09/10/17 08:57 JDR [email or web address]) Pulse Oximetry Assessment Oxygen Saturation (92-100) 92 Oxygen Flow Rate (L/min) 3 Oxygen Delivery Method Nasal Cannula Equipment Usage Equipment in Use Continuous SpO2 Machine # 16 Additional RT Notes Other pt states he does not need AVAPS Intake & Output 09/09/17 09/10/17 09/11/17 06:59 06:59 06:59 Intake Total 2986 2765 0 Output Total 6600 6500 Balance -3614 -3735 0 Weight 345 lb 14.484 oz 335 lb 12.224 oz General appearance: PRESENT: no acute distress, morbidly obese Respiratory exam: PRESENT: decreased breath sounds, prolonged expiratory phas Cardiovascular exam: PRESENT: RRR GI/Abdominal exam: PRESENT: soft Extremities exam: PRESENT: +1 edema - With chronic stasis changes distally Musculoskeletal exam: PRESENT: normal inspection Neurological exam: PRESENT: alert Psychiatric exam: PRESENT: appropriate affect Skin exam: PRESENT: warm Results Laboratory Results: 09/08/17 05:42 09/10/17 05:45 09/10/17 05:45 Sodium 141.2 Potassium 4.6 Chloride 94 L Carbon Dioxide 38 H Anion Gap 9 BUN 22 H Creatinine 0.70 Est GFR ( Amer) > 60 Est GFR (Non-Af Amer) > 60 Glucose 171 H Calcium 9.3 Phosphorus 4.6 H Albumin 3.5 09/04/17 09/04/17 09/05/17 23:48 23:48 06:08 Creatine Kinase 110 104 Troponin I 0.069 NT-Pro-B Natriuret Pep 09/05/17 09/05/17 09/05/17 06:08 06:08 11:43 Creatine Kinase 84 Troponin I 0.060 NT-Pro-B Natriuret Pep 3770 H 09/05/17 09/06/17 09/07/17 11:43 06:00 05:39 Creatine Kinase Troponin I 0.047 NT-Pro-B Natriuret Pep 2650 H 1620 H 09/10/17 05:45 Creatine Kinase Troponin I NT-Pro-B Natriuret Pep 1200 H Impressions: Abdomen/Pelvis CT 09/04/17 12:49 IMPRESSION: DIFFUSE SUBCUTANEOUS STRANDING INVOLVING THE ABDOMINAL PANNUS COMPATIBLE WITH CELLULITIS. NO DRAINABLE FLUID COLLECTION/ABSCESS. LEFT-SIDED NEPHROLITHIASIS WITHOUT LOWER URINARY TRACT STONES OR HYDRONEPHROSIS. Chest X-Ray 09/04/17 15:23 IMPRESSION: NO ACUTE RADIOGRAPHIC FINDING IN THE CHEST. MARKED CARDIOMEGALY Chest/Abdomen CTA 09/07/17 10:32 IMPRESSION: Bibasilar atelectasis. No CT evidence of acute pulmonary emboli. Assessment & Plan - Diagnosis (1) Acute diastolic (congestive) heart failure Is this a current diagnosis for this admission?: Yes Plan: Continue diuresis (2) Acute hypercapnic respiratory failure Is this a current diagnosis for this admission?: Yes Plan: BiPAP, inhaled and oral steroids, empiric antibiotics, nebulizers, wean oxygen as tolerated. Oxygen saturations are still 86% at rest on room air. (3) Morbid obesity Is this a current diagnosis for this admission?: Yes (4) Obesity hypoventilation syndrome Is this a current diagnosis for this admission?: Yes (5) Pulmonary hypertension Is this a current diagnosis for this admission?: Yes (6) Abdominal wall cellulitis Is this a current diagnosis for this admission?: Yes Plan: Improving. He has erythema of the dependent portion of his abdominal panniculus that I suspect is chronic. Continue Keflex
--- NOTE | 2017-09-10 17:15 | PDOC PROGRESS REPORT ---
Subjective Progress Note for:: 09/10/17 Subjective:: Patient yesterday stress part of nuclear stress test without any complications. Today completed the rest part. Nuclear images were reviewed and were noted to be negative for any significant ischemia. Showing daily improvement in CHF and edema. However patient Still has significant generalized edema. Patient seems to be doing better with gradual improvement. Pt is denying any chest arm or neck discomfort. Patient denying any PND, orthopnea. Patient denied any sustained palpitations, dizziness, syncope, near syncope. Patient denying any fever chills. Patient denying any other significant discomfort. Patient is maintaining sinus rhythm. Frequent ventricular ectopy often in bigeminy pattern is still noted. Review of systems: Rest review of systems negative. Medications: Medications have been reviewed. Reason For Visit: NEW ONSET CHF, ABDOMINAL WALL CELLULITIS Physical Exam Vital Signs: Temp Pulse Resp BP Pulse Ox 97.2 F 42 L 17 145/80 H 90 L 09/10/17 16:12 09/10/17 16:12 09/10/17 16:12 09/10/17 16:12 09/10/17 16:12 Pulse Oximeter Continuous Start: 09/05/17 17: 15 Freq: RTQ4 Status: Active Document 09/10/17 16:00 JDR (Rec: 09/10/17 16:25 JDR [email or web address]) Pulse Oximetry Assessment Equipment Usage Equipment Standby Continuous SpO2 Machine # 16 Intake & Output 09/09/17 09/10/17 09/11/17 06:59 06:59 06:59 Intake Total 2986 2765 0 Output Total 6600 6500 Balance -0294 -1383 0 Weight 156.9 kg 152.3 kg Exam: GENERAL: well-nourished and in no acute distress. Alert and oriented x3 HEAD: Atraumatic, normocephalic. EYES: Pupils equal round and reactive to light, extraocular movements intact, sclera anicteric, conjunctiva are normal. ENT: TMs normal, nares patent, oropharynx clear without exudates. Moist mucous membranes. No oral ulcerations or bleeding gums noted NECK: supple without lymphadenopathy. Trachea is central. No cervical or axillary lymphadenopathy noted. Carotids are 2+, JVD 8-10 cm LUNGS: Respiration seems nonlabored, no significant accessory muscle action noted. Few bibasilar fine crackles are noted. No wheezes rales or rhonchi noted. No significant dullness noted on percussion. CHEST: Palpation of the chest wall shows no significant chest wall tenderness. 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 ABDOMEN: Soft, no significant tenderness appreciated, normoactive bowel sounds. No guarding, no rebound. No rigidity noted . No masses appreciated. EXTREMITIES: Pedal pulses are 1-2+, no calf tenderness noted. No clubbing or cyanosis. 1-2+ pedal edema noted NEUROLOGICAL: Focused neurological exam showed no significant neurologic deficit. Normal speech, no focal weakness appreciated. PSYCH: Normal mood, normal affect. Judgment and insight within normal limits. SKIN: No significant ecchymosis, skin is noted to be warm. MUSCULOSKELETAL EXAM: No significant acute joint swelling noted. Results Laboratory Results: 09/08/17 05:42 09/10/17 05:45 09/10/17 05:45 Sodium 141.2 Potassium 4.6 Chloride 94 L Carbon Dioxide 38 H Anion Gap 9 BUN 22 H Creatinine 0.70 Est GFR ( Amer) > 60 Est GFR (Non-Af Amer) > 60 Glucose 171 H Calcium 9.3 Phosphorus 4.6 H Albumin 3.5 09/04/17 09/04/17 09/05/17 23:48 23:48 06:08 Creatine Kinase 110 104 Troponin I 0.069 NT-Pro-B Natriuret Pep 09/05/17 09/05/17 09/05/17 06:08 06:08 11:43 Creatine Kinase 84 Troponin I 0.060 NT-Pro-B Natriuret Pep 3770 H 09/05/17 09/06/17 09/07/17 11:43 06:00 05:39 Creatine Kinase Troponin I 0.047 NT-Pro-B Natriuret Pep 2650 H 1620 H 09/10/17 05:45 Creatine Kinase Troponin I NT-Pro-B Natriuret Pep 1200 H EKG Comments: Telemetry strip shows sinus rhythm, no sustained tacky or bradycardia arrhythmias were noted. Patient did have ventricular ectopy Impressions: Abdomen/Pelvis CT 09/04/17 12:49 IMPRESSION: DIFFUSE SUBCUTANEOUS STRANDING INVOLVING THE ABDOMINAL PANNUS COMPATIBLE WITH CELLULITIS. NO DRAINABLE FLUID COLLECTION/ABSCESS. LEFT-SIDED NEPHROLITHIASIS WITHOUT LOWER URINARY TRACT STONES OR HYDRONEPHROSIS. Chest X-Ray 09/04/17 15:23 IMPRESSION: NO ACUTE RADIOGRAPHIC FINDING IN THE CHEST. MARKED CARDIOMEGALY Chest/Abdomen CTA 09/07/17 10:32 IMPRESSION: Bibasilar atelectasis. No CT evidence of acute pulmonary emboli. Assessment & Plan - Diagnosis (1) Congestive heart failure (CHF) Qualifiers: Heart failure type: unspecified Heart failure chronicity: acute on chronic Qualified Code(s): I50.9 - Heart failure, unspecified Is this a current diagnosis for this admission?: Yes (2) Abdominal wall cellulitis Is this a current diagnosis for this admission?: Yes (3) Dyspnea on exertion Is this a current diagnosis for this admission?: Yes (4) Edema, peripheral Is this a current diagnosis for this admission?: Yes (5) OPAL (obstructive sleep apnea) Is this a current diagnosis for this admission?: Yes (6) Obesity Qualifiers: Obesity type: unspecified obesity type Obesity classification: unspecified obesity classification Is this a current diagnosis for this admission?: Yes (7) Ventricular dysrhythmia Is this a current diagnosis for this admission?: Yes (8) Acute on chronic respiratory failure with hypercapnia Is this a current diagnosis for this admission?: Yes - Notes Notes: Nuclear stress test results were discussed with the patient in detail. Test was negative for definitive pharmacologic stress-induced ischemia or fixed defect. Significant soft tissue attenuation and diaphragmatic attenuation artifact and also increased visceral uptake, makes interpretation of perfusion of the inferior wall is somewhat problematic but no definite perfusion abnormalities are noted. Congestive heart failure: Seems predominantly right-sided. 2DEcho confirms this. Agree with diuretic therapy, salt and fluid restriction, positive pressure noninvasive ventilation. May also consider arterial blood gases. Abdominal wall cellulitis: Continue with antibiotic therapy. Seems to be improving. Dyspnea on exertion: Related to CHF, patient may have underlying COPD, obesity also contributing. Pedal edema: Most likely related to CHF with some venous insufficiency and dependency contributing. Obstructive sleep apnea: Patient felt to have severe obstructive sleep apnea. Continue with nightly CPAP therapy. Will try to obtain previous sleep apnea evaluation results. Obesity: Patient noted to have superobesity. Patient will benefit from aggressive weight loss. Discussed that weight loss will help multitudes of his problem Ventricular dysrhythmia: Patient noted to have intermittent ventricular bigeminy pattern. Possibly related to CHF but could well have underlying CAD. Nuclear stress test results were reviewed with the patient. Patient advised aggressive risk factor modification and medical management. Respiratory failure acute on chronic hypercapnic: Most likely related to obesity hypoventilation syndrome, with contribution from COPD and CHF. Consider pulmonary evaluation. - Time Time with patient: Greater than 35 minutes - CODE STATUS was discussed, patient remains full code. Surrogate decision-maker unchanged. Multiple medical problems were addressed. More than 50% of the time spent coordinating care, discussing management plans with involved caregivers. Management plans discussed with involved personnels. Medical decision making was of moderate to high complexity, patient's has multiple comorbidities. Medications reviewed and adjusted accordingly: Yes
[2017-09-10] MEDS: LEVALBUTEROL HCL NEB 0.63 MG/3 ML AMPUL NEB PRN (20:56)
[2017-09-10] MEDS: TRAMADOL HCL 50 MG TABLET PO PRN (21:23)
[2017-09-11] MEDS: ERYTHROMYCIN 0.5% OPH OINTMENT 3.5 GM TUBE OS SCH ×5 (00:01→23:29)
[2017-09-11] MEDS: CEPHALEXIN 500 MG CAPSULE PO SCH ×5 (00:01→23:29)
[2017-09-11 05:43] LABS: ALBUMIN 3.4 g/dL (3.5-5.0); ANION GAP 8 (5-19); BLOOD UREA NITROGEN 26 mg/dL (7-20); CALCIUM 9.3 mg/dL (8.4-10.2); CARBON DIOXIDE 39 mmol/L (22-30); CHLORIDE 94 mmol/L (98-107); GLUCOSE 163 mg/dL (75-110); PHOSPHORUS 4.7 mg/dL (2.5-4.5); SODIUM 141.4 mmol/L (137-145)
[2017-09-11 05:54] LABS: POTASSIUM 3.6 mmol/L (3.6-5.0)
[2017-09-11] MEDS: BUDESONIDE NEB 0.5 MG/2 ML AMPUL NEB SCH ×2 (07:51→20:22)
[2017-09-11] MEDS: FUROSEMIDE INJ/PF 100 MG/10 ML SDV IV SCH ×2 (08:57→14:08)
[2017-09-11] MEDS: PREDNISONE 20 MG TABLET PO SCH (08:57)
[2017-09-11] MEDS: TRAMADOL HCL 50 MG TABLET PO PRN ×2 (08:58→17:14)
[2017-09-11] MEDS: LOSARTAN POTASSIUM 25 MG TABLET PO SCH (08:58)
[2017-09-11] MEDS: ENOXAPARIN SODIUM INJ 40 MG/0.4 ML DISP.SYRIN SUBCUT SCH (08:59)
[2017-09-11] MEDS: MAGNESIUM OXIDE 400 MG TABLET PO SCH ×2 (08:59→17:14)
--- NOTE | 2017-09-11 12:03 | PDOC PROGRESS REPORT ---
Subjective Progress Note for:: 09/11/17 Subjective:: Staff reports that it he has not been compliant with his BiPAP. I discussed the importance of compliance. Reason For Visit: NEW ONSET CHF, ABDOMINAL WALL CELLULITIS Physical Exam Vital Signs: Temp Pulse Resp BP Pulse Ox 97.3 F 59 L 15 109/80 98 09/11/17 07:24 09/11/17 07:52 09/11/17 09:40 09/11/17 07:24 09/11/17 09:40 Pulse Oximeter Continuous Start: 09/05/17 17: 15 Freq: RTQ4 Status: Active Document 09/11/17 07:52 JDR (Rec: 09/11/17 07:58 JDR [email or web address]) Pulse Oximetry Assessment Oxygen Saturation (92-100) 90 Oxygen Delivery Method Room Air Fraction of Inspired Oxygen (FIO2) 21 Equipment Usage Equipment in Use Continuous Pulse Oximeter 24 Hour Charge Charge Now Continuous SpO2 Machine # 16 Intake & Output 09/10/17 09/11/17 09/12/17 06:59 06:59 06:59 Intake Total 2765 1520 Output Total 6500 Balance -3735 1520 Weight 335 lb 12.224 oz 335 lb 5.169 oz General appearance: PRESENT: no acute distress, morbidly obese Respiratory exam: PRESENT: clear to auscultation meron, prolonged expiratory phas , other - Distant breath sounds Cardiovascular exam: PRESENT: RRR GI/Abdominal exam: PRESENT: soft Extremities exam: ABSENT: other - No edema Neurological exam: PRESENT: alert Psychiatric exam: PRESENT: appropriate affect Skin exam: PRESENT: warm Results Laboratory Results: 09/08/17 05:42 09/11/17 05:01 09/11/17 05:01 Sodium 141.4 Potassium 3.6 D Chloride 94 L Carbon Dioxide 39 H Anion Gap 8 BUN 26 H Creatinine 0.72 Est GFR ( Amer) > 60 Est GFR (Non-Af Amer) > 60 Glucose 163 H Calcium 9.3 Phosphorus 4.7 H Magnesium 2.0 Albumin 3.4 L 09/04/17 09/04/17 09/05/17 23:48 23:48 06:08 Creatine Kinase 110 104 Troponin I 0.069 NT-Pro-B Natriuret Pep 09/05/17 09/05/17 09/05/17 06:08 06:08 11:43 Creatine Kinase 84 Troponin I 0.060 NT-Pro-B Natriuret Pep 3770 H 09/05/17 09/06/17 09/07/17 11:43 06:00 05:39 Creatine Kinase Troponin I 0.047 NT-Pro-B Natriuret Pep 2650 H 1620 H 09/10/17 09/11/17 05:45 05:01 Creatine Kinase Troponin I NT-Pro-B Natriuret Pep 1200 H 1720 H Impressions: Abdomen/Pelvis CT 09/04/17 12:49 IMPRESSION: DIFFUSE SUBCUTANEOUS STRANDING INVOLVING THE ABDOMINAL PANNUS COMPATIBLE WITH CELLULITIS. NO DRAINABLE FLUID COLLECTION/ABSCESS. LEFT-SIDED NEPHROLITHIASIS WITHOUT LOWER URINARY TRACT STONES OR HYDRONEPHROSIS. Chest X-Ray 09/04/17 15:23 IMPRESSION: NO ACUTE RADIOGRAPHIC FINDING IN THE CHEST. MARKED CARDIOMEGALY Chest/Abdomen CTA 09/07/17 10:32 IMPRESSION: Bibasilar atelectasis. No CT evidence of acute pulmonary emboli. Assessment & Plan - Diagnosis (1) Acute diastolic (congestive) heart failure Is this a current diagnosis for this admission?: Yes Plan: Continue diuresis. Seems to be drinking as much liquid as were taking often. I will put him on a fluid restriction (2) Acute hypercapnic respiratory failure Is this a current diagnosis for this admission?: Yes Plan: BiPAP, inhaled and oral steroids, empiric antibiotics, nebulizers, wean oxygen as tolerated. Oxygen saturations are still 86% at rest on room air. (3) Morbid obesity Is this a current diagnosis for this admission?: Yes (4) Obesity hypoventilation syndrome Is this a current diagnosis for this admission?: Yes (5) Pulmonary hypertension Is this a current diagnosis for this admission?: Yes (6) Abdominal wall cellulitis Is this a current diagnosis for this admission?: Yes Plan: Improving. He has erythema of the dependent portion of his abdominal panniculus that I suspect is chronic. Continue Keflex through discharge
--- NOTE | 2017-09-11 13:50 | PDOC PROGRESS REPORT ---
Subjective Progress Note for:: 09/11/17 Subjective:: Patient seems to be doing better with gradual improvement. Patient quite happy about his progress. Nuclear stress test results were again reviewed with the patient. 2D echo results were reviewed. Pt is denying any chest arm or neck discomfort. Patient denying any PND, orthopnea. Patient denied any sustained palpitations, dizziness, syncope, near syncope. Patient denying any fever chills. Patient denying any other significant discomfort. Patient is maintaining sinus rhythm. Frequent ventricular ectopy often in bigeminy pattern is still noted. Review of systems: Rest review of systems negative. Medications: Medications have been reviewed. Reason For Visit: NEW ONSET CHF, ABDOMINAL WALL CELLULITIS Physical Exam Vital Signs: Temp Pulse Resp BP Pulse Ox 97.4 F 37 L 16 138/102 H 93 09/11/17 11:30 09/11/17 11:30 09/11/17 11:30 09/11/17 11:30 09/11/17 11:30 Pulse Oximeter Continuous Start: 09/05/17 17: 15 Freq: RTQ4 Status: Complete Document 09/11/17 07:52 JDR (Rec: 09/11/17 07:58 JDR [email or web address]) Pulse Oximetry Assessment Oxygen Saturation (92-100) 90 Oxygen Delivery Method Room Air Fraction of Inspired Oxygen (FIO2) 21 Equipment Usage Equipment in Use Continuous Pulse Oximeter 24 Hour Charge Charge Now Continuous SpO2 Machine # 16 Intake & Output 09/10/17 09/11/17 09/12/17 06:59 06:59 06:59 Intake Total 2765 1520 591 Output Total 6500 Balance -3735 1520 591 Weight 152.3 kg 152.1 kg Exam: GENERAL: well-nourished and in no acute distress. Alert and oriented x3 HEAD: Atraumatic, normocephalic. EYES: Pupils equal round and reactive to light, extraocular movements intact, sclera anicteric, conjunctiva are normal. ENT: TMs normal, nares patent, oropharynx clear without exudates. Moist mucous membranes. No oral ulcerations or bleeding gums noted NECK: supple without lymphadenopathy. Trachea is central. No cervical or axillary lymphadenopathy noted. Carotids are 2+, JVD WNL LUNGS: Respiration seems nonlabored, no significant accessory muscle action noted. Breath sounds clear to auscultation bilaterally and equal noted. No wheezes rales or rhonchi noted. No significant dullness noted on percussion. CHEST: Palpation of the chest wall shows no significant chest wall tenderness. 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 ABDOMEN: Soft, no significant tenderness appreciated, normoactive bowel sounds. No guarding, no rebound. No rigidity noted . No masses appreciated. EXTREMITIES: Pedal pulses are 1-2+, no calf tenderness noted. No clubbing or cyanosis. 1-2+ pedal edema noted NEUROLOGICAL: Focused neurological exam showed no significant neurologic deficit. Normal speech, no focal weakness appreciated. PSYCH: Normal mood, normal affect. Judgment and insight within normal limits. SKIN: No significant ecchymosis, skin is noted to be warm. Cellulitis noted of the lower abdominal wall. Patient claims it has improved. MUSCULOSKELETAL EXAM: No significant acute joint swelling noted. Results Laboratory Results: 09/08/17 05:42 09/11/17 05:01 09/11/17 05:01 Sodium 141.4 Potassium 3.6 D Chloride 94 L Carbon Dioxide 39 H Anion Gap 8 BUN 26 H Creatinine 0.72 Est GFR ( Amer) > 60 Est GFR (Non-Af Amer) > 60 Glucose 163 H Calcium 9.3 Phosphorus 4.7 H Magnesium 2.0 Albumin 3.4 L 09/04/17 09/04/17 09/05/17 23:48 23:48 06:08 Creatine Kinase 110 104 Troponin I 0.069 NT-Pro-B Natriuret Pep 09/05/17 09/05/17 09/05/17 06:08 06:08 11:43 Creatine Kinase 84 Troponin I 0.060 NT-Pro-B Natriuret Pep 3770 H 09/05/17 09/06/17 09/07/17 11:43 06:00 05:39 Creatine Kinase Troponin I 0.047 NT-Pro-B Natriuret Pep 2650 H 1620 H 09/10/17 09/11/17 05:45 05:01 Creatine Kinase Troponin I NT-Pro-B Natriuret Pep 1200 H 1720 H Impressions: Abdomen/Pelvis CT 09/04/17 12:49 IMPRESSION: DIFFUSE SUBCUTANEOUS STRANDING INVOLVING THE ABDOMINAL PANNUS COMPATIBLE WITH CELLULITIS. NO DRAINABLE FLUID COLLECTION/ABSCESS. LEFT-SIDED NEPHROLITHIASIS WITHOUT LOWER URINARY TRACT STONES OR HYDRONEPHROSIS. Chest X-Ray 09/04/17 15:23 IMPRESSION: NO ACUTE RADIOGRAPHIC FINDING IN THE CHEST. MARKED CARDIOMEGALY Chest/Abdomen CTA 09/07/17 10:32 IMPRESSION: Bibasilar atelectasis. No CT evidence of acute pulmonary emboli. Assessment & Plan - Diagnosis (1) Congestive heart failure (CHF) Qualifiers: Heart failure type: unspecified Heart failure chronicity: acute on chronic Qualified Code(s): I50.9 - Heart failure, unspecified Is this a current diagnosis for this admission?: Yes (2) Abdominal wall cellulitis Is this a current diagnosis for this admission?: Yes (3) Dyspnea on exertion Is this a current diagnosis for this admission?: Yes (4) Edema, peripheral Is this a current diagnosis for this admission?: Yes (5) OPAL (obstructive sleep apnea) Is this a current diagnosis for this admission?: Yes (6) Obesity Qualifiers: Obesity type: unspecified obesity type Obesity classification: unspecified obesity classification Is this a current diagnosis for this admission?: Yes (7) Ventricular dysrhythmia Is this a current diagnosis for this admission?: Yes (8) Acute on chronic respiratory failure with hypercapnia Is this a current diagnosis for this admission?: Yes - Notes Notes: Nuclear stress test results were again discussed with the patient in detail. Test was negative for definitive pharmacologic stress-induced ischemia or fixed defect. Significant soft tissue attenuation and diaphragmatic attenuation artifact and also increased visceral uptake, makes interpretation of perfusion of the inferior wall is somewhat problematic but no definite perfusion abnormalities are noted. Congestive heart failure: Seems predominantly right-sided. 2DEcho confirms this. Agree with diuretic therapy, salt and fluid restriction, positive pressure noninvasive ventilation. May also consider arterial blood gases. Abdominal wall cellulitis: Continue with antibiotic therapy. Seems to be improving. Dyspnea on exertion: Related to CHF, patient may have underlying COPD, obesity also contributing. Pedal edema: Most likely related to CHF with some venous insufficiency and dependency contributing. Obstructive sleep apnea: Patient felt to have severe obstructive sleep apnea. Continue with nightly CPAP therapy. Will try to obtain previous sleep apnea evaluation results. Obesity: Patient noted to have superobesity. Patient will benefit from aggressive weight loss. Discussed that weight loss will help multitudes of his problem Ventricular dysrhythmia: Patient noted to have intermittent ventricular bigeminy pattern. Possibly related to CHF but could well have underlying CAD. Nuclear stress test results were reviewed with the patient. Patient advised aggressive risk factor modification and medical management. This seems to have improved. Respiratory failure acute on chronic hypercapnic: Most likely related to obesity hypoventilation syndrome, with contribution from COPD and CHF. Patient is currently being followed by shaker washer. Please note that I would not be available on site tomorrow. - Time Time with patient: Greater than 35 minutes - CODE STATUS was discussed, patient remains full code. Surrogate decision-maker unchanged. Multiple medical problems were addressed. More than 50% of the time spent coordinating care, discussing management plans with involved caregivers. Management plans discussed with involved personnels. Medical decision making was of moderate to high complexity, patient's has multiple comorbidities. Medications reviewed and adjusted accordingly: Yes
[2017-09-11] MEDS: LEVALBUTEROL HCL NEB 0.63 MG/3 ML AMPUL NEB PRN (20:21)
[2017-09-12 06:13] LABS: BLOOD UREA NITROGEN 29 mg/dL (7-20); CALCIUM 9.5 mg/dL (8.4-10.2); GLUCOSE 141 mg/dL (75-110)
[2017-09-12 06:14] LABS: ALBUMIN 3.9 g/dL (3.5-5.0); CHLORIDE 93 mmol/L (98-107); PHOSPHORUS 5.5 mg/dL (2.5-4.5); POTASSIUM 4.1 mmol/L (3.6-5.0); SODIUM 143.4 mmol/L (137-145)
[2017-09-12 06:20] LABS: ANION GAP 12 (5-19)
[2017-09-12 06:23] LABS: CARBON DIOXIDE 38 mmol/L (22-30)
[2017-09-12] MEDS: CEPHALEXIN 500 MG CAPSULE PO SCH ×4 (06:42→23:57)
[2017-09-12] MEDS: ERYTHROMYCIN 0.5% OPH OINTMENT 3.5 GM TUBE OS SCH ×4 (06:44→23:57)
[2017-09-12] MEDS: TRAMADOL HCL 50 MG TABLET PO PRN ×2 (06:49→17:33)
[2017-09-12] MEDS: BUDESONIDE NEB 0.5 MG/2 ML AMPUL NEB SCH ×2 (08:20→20:05)
[2017-09-12] MEDS: FUROSEMIDE INJ/PF 100 MG/10 ML SDV IV SCH ×2 (09:43→13:44)
[2017-09-12] MEDS: PREDNISONE 20 MG TABLET PO SCH (09:43)
[2017-09-12] MEDS: LOSARTAN POTASSIUM 25 MG TABLET PO SCH (09:43)
[2017-09-12] MEDS: MAGNESIUM OXIDE 400 MG TABLET PO SCH ×2 (09:43→17:31)
[2017-09-12] MEDS: ENOXAPARIN SODIUM INJ 40 MG/0.4 ML DISP.SYRIN SUBCUT SCH (09:44)
--- NOTE | 2017-09-12 10:55 | PDOC PROGRESS REPORT ---
Subjective Progress Note for:: 09/12/17 Subjective:: Feels well. Up and around the room on room air. No new complaints. Reason For Visit: NEW ONSET CHF, ABDOMINAL WALL CELLULITIS Physical Exam Vital Signs: Temp Pulse Resp BP Pulse Ox 97.3 F 68 18 118/83 94 09/12/17 07:43 09/12/17 08:33 09/12/17 07:43 09/12/17 07:43 09/12/17 07:43 Pulse Oximeter Continuous Start: 09/05/17 17: 15 Freq: RTQ4 Status: Complete Document 09/11/17 07:52 JDR (Rec: 09/11/17 07:58 JDR [email or web address]) Pulse Oximetry Assessment Oxygen Saturation (92-100) 90 Oxygen Delivery Method Room Air Fraction of Inspired Oxygen (FIO2) 21 Equipment Usage Equipment in Use Continuous Pulse Oximeter 24 Hour Charge Charge Now Continuous SpO2 Machine # 16 Intake & Output 09/11/17 09/12/17 09/13/17 06:59 06:59 06:59 Intake Total 1520 2005 Balance 1520 2005 Weight 335 lb 5.169 oz 338 lb 10.08 oz General appearance: PRESENT: no acute distress, morbidly obese Eye exam: PRESENT: conjunctival injection - Slow improvement Respiratory exam: PRESENT: clear to auscultation meron - Distant breath sounds Cardiovascular exam: PRESENT: RRR GI/Abdominal exam: PRESENT: soft Neurological exam: PRESENT: alert Psychiatric exam: PRESENT: appropriate affect Skin exam: PRESENT: warm Results Laboratory Results: 09/08/17 05:42 09/12/17 05:23 09/12/17 05:23 Sodium 143.4 Potassium 4.1 Chloride 93 L Carbon Dioxide 38 H Anion Gap 12 BUN 29 H Creatinine 0.85 Est GFR ( Amer) > 60 Est GFR (Non-Af Amer) > 60 Glucose 141 H Calcium 9.5 Phosphorus 5.5 H Albumin 3.9 09/04/17 09/04/17 09/05/17 23:48 23:48 06:08 Creatine Kinase 110 104 Troponin I 0.069 NT-Pro-B Natriuret Pep 09/05/17 09/05/17 09/05/17 06:08 06:08 11:43 Creatine Kinase 84 Troponin I 0.060 NT-Pro-B Natriuret Pep 3770 H 09/05/17 09/06/17 09/07/17 11:43 06:00 05:39 Creatine Kinase Troponin I 0.047 NT-Pro-B Natriuret Pep 2650 H 1620 H 09/10/17 09/11/17 09/12/17 05:45 05:01 05:23 Creatine Kinase Troponin I NT-Pro-B Natriuret Pep 1200 H 1720 H 1320 H Impressions: Abdomen/Pelvis CT 09/04/17 12:49 IMPRESSION: DIFFUSE SUBCUTANEOUS STRANDING INVOLVING THE ABDOMINAL PANNUS COMPATIBLE WITH CELLULITIS. NO DRAINABLE FLUID COLLECTION/ABSCESS. LEFT-SIDED NEPHROLITHIASIS WITHOUT LOWER URINARY TRACT STONES OR HYDRONEPHROSIS. Chest X-Ray 09/04/17 15:23 IMPRESSION: NO ACUTE RADIOGRAPHIC FINDING IN THE CHEST. MARKED CARDIOMEGALY Chest/Abdomen CTA 09/07/17 10:32 IMPRESSION: Bibasilar atelectasis. No CT evidence of acute pulmonary emboli. Assessment & Plan - Diagnosis (1) Acute diastolic (congestive) heart failure Is this a current diagnosis for this admission?: Yes Plan: Continue diuresis and fluid restriction (2) Acute hypercapnic respiratory failure Is this a current diagnosis for this admission?: Yes Plan: Stable for discharge if we can arrange for a trilogy or BiPAP at home. I do not think he would do well without it. When he is done without it here in the hospital he becomes obtunded in less than 24 hours. He has no insurance, and limited resources. (3) Morbid obesity Is this a current diagnosis for this admission?: Yes (4) Obesity hypoventilation syndrome Is this a current diagnosis for this admission?: Yes (5) Pulmonary hypertension Is this a current diagnosis for this admission?: Yes (6) Abdominal wall cellulitis Is this a current diagnosis for this admission?: Yes Plan: Improving. He has erythema of the dependent portion of his abdominal panniculus that I suspect is chronic. Continue Keflex through discharge
--- NOTE | 2017-09-12 11:54 | PDOC PROGRESS REPORT ---
Subjective Progress Note for:: 09/12/17 Subjective:: w/o complaints Reason For Visit: NEW ONSET CHF, ABDOMINAL WALL CELLULITIS Physical Exam Vital Signs: Temp Pulse Resp BP Pulse Ox 97.3 F 68 16 118/83 94 09/12/17 07:43 09/12/17 08:33 09/12/17 08:20 09/12/17 07:43 09/12/17 07:43 Pulse Oximeter Continuous Start: 09/05/17 17: 15 Freq: RTQ4 Status: Complete Document 09/11/17 07:52 JDR (Rec: 09/11/17 07:58 JDR [email or web address]) Pulse Oximetry Assessment Oxygen Saturation (92-100) 90 Oxygen Delivery Method Room Air Fraction of Inspired Oxygen (FIO2) 21 Equipment Usage Equipment in Use Continuous Pulse Oximeter 24 Hour Charge Charge Now Continuous SpO2 Machine # 16 Intake & Output 09/11/17 09/12/17 09/13/17 06:59 06:59 06:59 Intake Total 1520 2005 Balance 1520 2005 Weight 152.1 kg 153.6 kg General appearance: PRESENT: no acute distress, cooperative, disheveled, morbidly obese Head exam: PRESENT: atraumatic, normocephalic Eye exam: PRESENT: conjunctiva pale, EOMI. ABSENT: nystagmus, periorbital swelling, scleral icterus Mouth exam: PRESENT: moist, neck supple, tongue midline Neck exam: ABSENT: carotid bruit, JVD, lymphadenopathy, thyromegaly, tracheal deviation, tracheostomy Respiratory exam: PRESENT: decreased breath sounds, prolonged expiratory phas, rhonchi, unlabored. ABSENT: retraction, stridor, tachypnea Cardiovascular exam: PRESENT: RRR, +S1, +S2 Pulses: PRESENT: normal radial pulses GI/Abdominal exam: PRESENT: diminished bowel sounds, soft Extremities exam: ABSENT: calf tenderness, clubbing, joint swelling Musculoskeletal exam: PRESENT: ambulatory. ABSENT: deformity, dislocation Neurological exam: PRESENT: alert, awake Psychiatric exam: PRESENT: normal mood Skin exam: PRESENT: dry, warm Results Laboratory Results: 09/08/17 05:42 09/12/17 05:23 09/12/17 05:23 Sodium 143.4 Potassium 4.1 Chloride 93 L Carbon Dioxide 38 H Anion Gap 12 BUN 29 H Creatinine 0.85 Est GFR ( Amer) > 60 Est GFR (Non-Af Amer) > 60 Glucose 141 H Calcium 9.5 Phosphorus 5.5 H Albumin 3.9 09/04/17 09/04/17 09/05/17 23:48 23:48 06:08 Creatine Kinase 110 104 Troponin I 0.069 NT-Pro-B Natriuret Pep 09/05/17 09/05/17 09/05/17 06:08 06:08 11:43 Creatine Kinase 84 Troponin I 0.060 NT-Pro-B Natriuret Pep 3770 H 09/05/17 09/06/17 09/07/17 11:43 06:00 05:39 Creatine Kinase Troponin I 0.047 NT-Pro-B Natriuret Pep 2650 H 1620 H 09/10/17 09/11/17 09/12/17 05:45 05:01 05:23 Creatine Kinase Troponin I NT-Pro-B Natriuret Pep 1200 H 1720 H 1320 H Impressions: Abdomen/Pelvis CT 09/04/17 12:49 IMPRESSION: DIFFUSE SUBCUTANEOUS STRANDING INVOLVING THE ABDOMINAL PANNUS COMPATIBLE WITH CELLULITIS. NO DRAINABLE FLUID COLLECTION/ABSCESS. LEFT-SIDED NEPHROLITHIASIS WITHOUT LOWER URINARY TRACT STONES OR HYDRONEPHROSIS. Chest X-Ray 09/04/17 15:23 IMPRESSION: NO ACUTE RADIOGRAPHIC FINDING IN THE CHEST. MARKED CARDIOMEGALY Chest/Abdomen CTA 09/07/17 10:32 IMPRESSION: Bibasilar atelectasis. No CT evidence of acute pulmonary emboli. Assessment & Plan - Diagnosis (1) Acute hypercapnic respiratory failure Is this a current diagnosis for this admission?: Yes Plan: Hypercapnia improved (2) Dyspnea on exertion Is this a current diagnosis for this admission?: Yes Plan: stable (3) Nicotine dependence Is this a current diagnosis for this admission?: Yes Plan: Transdermal nicotine as you are doing (4) OPAL (obstructive sleep apnea) Is this a current diagnosis for this admission?: Yes Plan: Nightly BiPAP oh whenever patient is asleep (5) Obesity Qualifiers: Obesity type: unspecified obesity type Obesity classification: unspecified obesity classification Is this a current diagnosis for this admission?: Yes Plan: May easily result in obesity hypoventilation syndrome further compromising his hypercapnic hypoxemic respiratory failure (6) Pulmonary hypertension Is this a current diagnosis for this admission?: Yes
[2017-09-12] MEDS: LEVALBUTEROL HCL NEB 0.63 MG/3 ML AMPUL NEB PRN (20:05)
[2017-09-13] MEDS: CEPHALEXIN 500 MG CAPSULE PO SCH ×2 (05:32→12:09)
[2017-09-13] MEDS: ERYTHROMYCIN 0.5% OPH OINTMENT 3.5 GM TUBE OS SCH ×2 (05:35→12:10)
[2017-09-13 06:00] LABS: ALBUMIN 3.5 g/dL (3.5-5.0); ANION GAP 8 (5-19); BLOOD UREA NITROGEN 32 mg/dL (7-20); CALCIUM 9.3 mg/dL (8.4-10.2); CARBON DIOXIDE 38 mmol/L (22-30); CHLORIDE 94 mmol/L (98-107); GLUCOSE 132 mg/dL (75-110); PHOSPHORUS 4.9 mg/dL (2.5-4.5); POTASSIUM 3.7 mmol/L (3.6-5.0); SODIUM 140.4 mmol/L (137-145)
[2017-09-13] MEDS: BUDESONIDE NEB 0.5 MG/2 ML AMPUL NEB SCH (08:03)
[2017-09-13] MEDS: LEVALBUTEROL HCL NEB 0.63 MG/3 ML AMPUL NEB PRN (08:03)
[2017-09-13] MEDS: FUROSEMIDE INJ/PF 100 MG/10 ML SDV IV SCH ×2 (09:39→15:23)
[2017-09-13] MEDS: MAGNESIUM OXIDE 400 MG TABLET PO SCH (09:40)
[2017-09-13] MEDS: LOSARTAN POTASSIUM 25 MG TABLET PO SCH (09:40)
[2017-09-13] MEDS: ENOXAPARIN SODIUM INJ 40 MG/0.4 ML DISP.SYRIN SUBCUT SCH (09:40)
[2017-09-13] MEDS: PREDNISONE 20 MG TABLET PO SCH (09:40)
[2017-09-13 12:00] VITALS: BP 140/74
--- NOTE | 2017-09-13 13:50 | PDOC PROGRESS REPORT ---
Subjective Progress Note for:: 09/13/17 Subjective:: w/o complaints Reason For Visit: NEW ONSET CHF, ABDOMINAL WALL CELLULITIS Physical Exam Vital Signs: Temp Pulse Resp BP Pulse Ox 97.8 F 60 18 140/74 H 91 L 09/13/17 11:01 09/13/17 11:01 09/13/17 11:01 09/13/17 11:01 09/13/17 11:01 Pulse Oximeter Continuous Start: 09/05/17 17: 15 Freq: RTQ4 Status: Complete Document 09/11/17 07:52 JDR (Rec: 09/11/17 07:58 JDR [email or web address]) Pulse Oximetry Assessment Oxygen Saturation (92-100) 90 Oxygen Delivery Method Room Air Fraction of Inspired Oxygen (FIO2) 21 Equipment Usage Equipment in Use Continuous Pulse Oximeter 24 Hour Charge Charge Now Continuous SpO2 Machine # 16 Intake & Output 09/12/17 09/13/17 09/14/17 06:59 06:59 06:59 Intake Total 2005 1675 Balance 2005 1675 Weight 153.6 kg General appearance: PRESENT: no acute distress, cooperative, disheveled, morbidly obese Head exam: PRESENT: atraumatic, normocephalic Eye exam: PRESENT: conjunctiva pale, EOMI. ABSENT: nystagmus, periorbital swelling, scleral icterus Mouth exam: PRESENT: dry mucosa, neck supple, tongue midline Neck exam: ABSENT: carotid bruit, JVD, lymphadenopathy, thyromegaly, tracheal deviation, tracheostomy Cardiovascular exam: PRESENT: RRR, +S1, +S2 Pulses: PRESENT: normal radial pulses GI/Abdominal exam: PRESENT: diminished bowel sounds, soft Extremities exam: ABSENT: calf tenderness, clubbing, joint swelling Musculoskeletal exam: PRESENT: ambulatory. ABSENT: deformity, dislocation Neurological exam: PRESENT: alert, awake Psychiatric exam: PRESENT: normal mood Skin exam: PRESENT: dry, warm Results Laboratory Results: 09/08/17 05:42 09/13/17 05:13 09/13/17 05:13 Sodium 140.4 Potassium 3.7 Chloride 94 L Carbon Dioxide 38 H Anion Gap 8 BUN 32 H Creatinine 0.72 Est GFR ( Amer) > 60 Est GFR (Non-Af Amer) > 60 Glucose 132 H Calcium 9.3 Phosphorus 4.9 H Albumin 3.5 09/04/17 09/04/1709/05/18 23:48 23:48 06:08 Creatine Kinase 110 104 Troponin I 0.069 NT-Pro-B Natriuret Pep 09/05/17 09/05/17 09/05/17 06:08 06:08 11:43 Creatine Kinase 84 Troponin I 0.060 NT-Pro-B Natriuret Pep 3770 H 09/05/17 09/06/17 09/07/17 11:43 06:00 05:39 Creatine Kinase Troponin I 0.047 NT-Pro-B Natriuret Pep 2650 H 1620 H 09/10/17 09/11/17 09/12/17 05:45 05:01 05:23 Creatine Kinase Troponin I NT-Pro-B Natriuret Pep 1200 H 1720 H 1320 H 09/13/17 05:13 Creatine Kinase Troponin I NT-Pro-B Natriuret Pep 819 Impressions: Abdomen/Pelvis CT 09/04/17 12:49 IMPRESSION: DIFFUSE SUBCUTANEOUS STRANDING INVOLVING THE ABDOMINAL PANNUS COMPATIBLE WITH CELLULITIS. NO DRAINABLE FLUID COLLECTION/ABSCESS. LEFT-SIDED NEPHROLITHIASIS WITHOUT LOWER URINARY TRACT STONES OR HYDRONEPHROSIS. Chest X-Ray 09/04/17 15:23 IMPRESSION: NO ACUTE RADIOGRAPHIC FINDING IN THE CHEST. MARKED CARDIOMEGALY Chest/Abdomen CTA 09/07/17 10:32 IMPRESSION: Bibasilar atelectasis. No CT evidence of acute pulmonary emboli. Assessment & Plan - Diagnosis (1) Acute hypercapnic respiratory failure Is this a current diagnosis for this admission?: Yes Plan: Patient unable to afford [facility] has no insurance portable and BiPAP BiPAP inspiratory of 20 and expiratory of 8 backup rate of 12 FiO2 30% (2) Dyspnea on exertion Is this a current diagnosis for this admission?: Yes Plan: stable (3) Nicotine dependence Is this a current diagnosis for this admission?: Yes Plan: Transdermal nicotine as you are doing (4) OPAL (obstructive sleep apnea) Is this a current diagnosis for this admission?: Yes Plan: Nightly BiPAP oh whenever patient is asleep (5) Obesity Qualifiers: Obesity type: unspecified obesity type Obesity classification: unspecified obesity classification Is this a current diagnosis for this admission?: Yes Plan: May easily result in obesity hypoventilation syndrome further compromising his hypercapnic hypoxemic respiratory failure (6) Pulmonary hypertension Is this a current diagnosis for this admission?: Yes Plan: see cath report
--- NOTE | 2017-09-13 17:23 | PDOC DISCHARGE SUMMARY ---
General - Admit/Disc Date/PCP Admission Date/Primary Care Provider: 09/04/17 17:55 Discharge Date: 09/13/17 - Discharge Diagnosis (1) Acute diastolic (congestive) heart failure Is this a current diagnosis for this admission?: Yes Summary: Patient was seen in consultation by Dr. Gonzalez of cardiology. He underwent a echocardiogram which was nondiagnostic and a stress test which was also nondiagnostic. He has been aggressively diuresed with IV Lasix, his edema has resolved. He will be discharged on oral Lasix, and losartan. (2) Acute hypercapnic respiratory failure Is this a current diagnosis for this admission?: Yes Summary: Seen in consultation by pulmonology and treated with a trilogy with slow improvement. A BiPAP has been arranged. He is currently ambulatory on room air. He will be discharged on Advair, Spiriva, and a short course of steroids (3) Morbid obesity Is this a current diagnosis for this admission?: Yes (4) Obesity hypoventilation syndrome Is this a current diagnosis for this admission?: Yes (5) Pulmonary hypertension Is this a current diagnosis for this admission?: Yes (6) Abdominal wall cellulitis Is this a current diagnosis for this admission?: Yes Summary: Initially treated with vancomycin and Zosyn, that was de-escalated to Keflex and he is now completed a course. No further antibiotics - Additional Information Resuscitation Status: Full Code Discharge Diet: Cardiac Discharge Activity: Activity As Tolerated, Balance Activity w/Rest, Weigh Daily Prescriptions: Fluticasone/Salmeterol [Advair 500-50 Diskus 14 Dose/Diskus] 1 inh IH Q12H #1 inhaler Furosemide [Lasix 80 mg Tablet] 80 mg PO QAM #30 tab Losartan Potassium [Cozaar 25 mg Tablet] 25 mg PO DAILY #30 tablet Prednisone [Deltasone 20 mg Tablet] 40 mg PO DAILY #10 tablet Tiotropium Divide [Spiriva] 18 mcg IH DAILY #1 inh Tramadol HCl [Ultram 50 mg Tablet] 50 mg PO Q8HP PRN #30 tablet PRN Reason: Home Medications: Fluticasone/Salmeterol [Advair 500-50 Diskus 14 Dose/Diskus] 1 inh IH Q12H #1 inhaler 09/13/17 Furosemide [Lasix 80 mg Tablet] 80 mg PO QAM #30 tab 09/13/17 Losartan Potassium [Cozaar 25 mg Tablet] 25 mg PO DAILY #30 tablet 09/13/17 Magnesium Oxide [Mag-Ox 400 mg Tablet] 400 mg PO BID tablet 09/13/17 Prednisone [Deltasone 20 mg Tablet] 40 mg PO DAILY #10 tablet 09/13/17 Tiotropium Divide [Spiriva] 18 mcg IH DAILY #1 inh 09/13/17 Tramadol HCl [Ultram 50 mg Tablet] 50 mg PO Q8HP PRN #30 tablet 09/13/17 History of Present Illness Patient complains of: Short of breath, leg swelling History of Present Illness: GAIL BOYER is a 57 year old morbidly obese male with obstructive sleep apnea noncompliant with CPAP who continues to smoke. He comes in with a couple months of progressive shortness of breath and lower extremity edema. Also noted is some redness and tenderness along the dependent portion of his abdominal panniculus. He denied fevers and chills, nausea and vomiting, chest pain. Hospital Course Hospital Course: He was diuresed with IV Lasix, treated with BiPAP, and nebulizers. Due to his slow improvement steroids were added. He was started on losartan for hypertension. He is made very slow progress. Eventually we were able to wean him off oxygen, social work has arranged for him to get out home BiPAP consistent with pulmonology's recommendations, and he is rather anxious to go home. His panniculitis was treated with IV and then oral antibiotics, and he has completed a full course. Physical Exam Vital Signs: Temp Pulse Resp BP Pulse Ox 97.8 F 60 18 140/74 H 91 L 09/13/17 14:29 09/13/17 14:29 09/13/17 14:29 09/13/17 14:29 09/13/17 14:29 Pulse Oximeter Continuous Start: 09/05/17 17: 15 Freq: RTQ4 Status: Complete Document 09/11/17 07:52 MARJORIE (Rec: 09/11/17 07:58 J [email or web address]) Pulse Oximetry Assessment Oxygen Saturation (92-100) 90 Oxygen Delivery Method Room Air Fraction of Inspired Oxygen (FIO2) 21 Equipment Usage Equipment in Use Continuous Pulse Oximeter 24 Hour Charge Charge Now Continuous SpO2 Machine # 16 Intake & Output 09/12/17 09/13/17 09/14/17 06:59 06:59 06:59 Intake Total 2005 1675 Balance 2005 1675 Weight 338 lb 10.08 oz General appearance: PRESENT: no acute distress, morbidly obese Respiratory exam: PRESENT: clear to auscultation meron - Distant breath sounds, prolonged expiratory phas Cardiovascular exam: PRESENT: RRR GI/Abdominal exam: PRESENT: soft Neurological exam: PRESENT: alert Psychiatric exam: PRESENT: appropriate affect Skin exam: PRESENT: warm Results Laboratory Results: 09/08/17 05:42 09/13/17 05:13 09/13/17 05:13 Sodium 140.4 Potassium 3.7 Chloride 94 L Carbon Dioxide 38 H Anion Gap 8 BUN 32 H Creatinine 0.72 Est GFR ( Amer) > 60 Est GFR (Non-Af Amer) > 60 Glucose 132 H Calcium 9.3 Phosphorus 4.9 H Albumin 3.5 09/04/17 09/04/17 09/05/17 23:48 23:48 06:08 Creatine Kinase 110 104 Troponin I 0.069 NT-Pro-B Natriuret Pep 09/05/17 09/05/17 09/05/17 06:08 06:08 11:43 Creatine Kinase 84 Troponin I 0.060 NT-Pro-B Natriuret Pep 3770 H 09/05/17 09/06/17 09/07/17 11:43 06:00 05:39 Creatine Kinase Troponin I 0.047 NT-Pro-B Natriuret Pep 2650 H 1620 H 09/10/17 09/11/17 09/12/17 05:45 05:01 05:23 Creatine Kinase Troponin I NT-Pro-B Natriuret Pep 1200 H 1720 H 1320 H 09/13/17 05:13 Creatine Kinase Troponin I NT-Pro-B Natriuret Pep 819 Impressions: Abdomen/Pelvis CT 09/04/17 12:49 IMPRESSION: DIFFUSE SUBCUTANEOUS STRANDING INVOLVING THE ABDOMINAL PANNUS COMPATIBLE WITH CELLULITIS. NO DRAINABLE FLUID COLLECTION/ABSCESS. LEFT-SIDED NEPHROLITHIASIS WITHOUT LOWER URINARY TRACT STONES OR HYDRONEPHROSIS. Chest X-Ray 09/04/17 15:23 IMPRESSION: NO ACUTE RADIOGRAPHIC FINDING IN THE CHEST. MARKED CARDIOMEGALY Chest/Abdomen CTA 09/07/17 10:32 IMPRESSION: Bibasilar atelectasis. No CT evidence of acute pulmonary emboli. Qualifiers - * PATIENT BEING DISCHARGED WITH ANY OF THE FOLLOWING DIAGNOSIS: Heart Failure HF Pt being discharged on ACEI for LVEF less than 40%?: No Reason(s) for not prescribing ACEI:: Medical Contraindication HF Pt being discharged on ARBS for LVEF less than 40%?: Yes HF Pt with Afib discharged with Warfarin?: No Reason(s) for not prescribing Warfarin:: Not indicated HF Pt discharged on evidence-based Beta Clinton:: No Reason(s) for not prescribing evidence-based Beta Clinton:: Not indicated
--- NOTE | 2017-09-13 19:33 | PDOC PROGRESS REPORT ---
Subjective Progress Note for:: 09/13/17 Subjective:: Patient seen on morning rounds. Patient seems to be doing better with overall significant improvement. Patient quite happy about his progress. Nuclear stress test results were again reviewed with the patient. 2D echo results were reviewed. Pt is denying any chest arm or neck discomfort. Patient denying any PND, orthopnea. Patient denied any sustained palpitations, dizziness, syncope, near syncope. Patient denying any fever chills. Patient denying any other significant discomfort. Patient is maintaining sinus rhythm. Patient is being discharged later on today.. Review of systems: Rest review of systems negative. Medications: Medications have been reviewed. Reason For Visit: NEW ONSET CHF, ABDOMINAL WALL CELLULITIS Physical Exam Vital Signs: Temp Pulse Resp BP Pulse Ox 97.8 F 60 18 140/74 H 91 L 09/13/17 14:29 09/13/17 14:29 09/13/17 14:29 09/13/17 14:29 09/13/17 14:29 Pulse Oximeter Continuous Start: 09/05/17 17: 15 Freq: RTQ4 Status: Complete Document 09/11/17 07:52 [facility] (Rec: 09/11/17 07:58 J [email or web address]) Pulse Oximetry Assessment Oxygen Saturation (92-100) 90 Oxygen Delivery Method Room Air Fraction of Inspired Oxygen (FIO2) 21 Equipment Usage Equipment in Use Continuous Pulse Oximeter 24 Hour Charge Charge Now Continuous SpO2 Machine # 16 Intake & Output 09/12/17 09/13/17 09/14/17 06:59 06:59 06:59 Intake Total 2005 1675 Balance 2005 1675 Weight 153.6 kg Exam: GENERAL: well-nourished and in no acute distress. Alert and oriented x3 HEAD: Atraumatic, normocephalic. EYES: Pupils equal round and reactive to light, extraocular movements intact, sclera anicteric, conjunctiva are normal. ENT: TMs normal, nares patent, oropharynx clear without exudates. Moist mucous membranes. No oral ulcerations or bleeding gums noted NECK: supple without lymphadenopathy. Trachea is central. No cervical or axillary lymphadenopathy noted. Carotids are 2+, JVD WNL LUNGS: Respiration seems nonlabored, no significant accessory muscle action noted. Breath sounds clear to auscultation bilaterally and equal noted. No wheezes rales or rhonchi noted. No significant dullness noted on percussion. CHEST: Palpation of the chest wall shows no significant chest wall tenderness. 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 ABDOMEN: Soft, no significant tenderness appreciated, normoactive bowel sounds. No guarding, no rebound. No rigidity noted . No masses appreciated. Mild lower abdominal wall cellulitis noted. Currently improving EXTREMITIES: Pedal pulses are 1-2+, no calf tenderness noted. No clubbing or cyanosis. 1+ pedal edema noted NEUROLOGICAL: Focused neurological exam showed no significant neurologic deficit. Normal speech, no focal weakness appreciated. PSYCH: Normal mood, normal affect. Judgment and insight within normal limits. SKIN: No significant ecchymosis, skin is noted to be warm. MUSCULOSKELETAL EXAM: No significant acute joint swelling noted. Results Laboratory Results: 09/08/17 05:42 09/13/17 05:13 09/13/17 05:13 Sodium 140.4 Potassium 3.7 Chloride 94 L Carbon Dioxide 38 H Anion Gap 8 BUN 32 H Creatinine 0.72 Est GFR ( Amer) > 60 Est GFR (Non-Af Amer) > 60 Glucose 132 H Calcium 9.3 Phosphorus 4.9 H Albumin 3.5 09/04/17 09/04/17 09/05/17 23:48 23:48 06:08 Creatine Kinase 110 104 Troponin I 0.069 NT-Pro-B Natriuret Pep 09/05/17 09/05/17 09/05/17 06:08 06:08 11:43 Creatine Kinase 84 Troponin I 0.060 NT-Pro-B Natriuret Pep 3770 H 09/05/17 09/06/17 09/07/17 11:43 06:00 05:39 Creatine Kinase Troponin I 0.047 NT-Pro-B Natriuret Pep 2650 H 1620 H 09/10/17 09/11/17 09/12/17 05:45 05:01 05:23 Creatine Kinase Troponin I NT-Pro-B Natriuret Pep 1200 H 1720 H 1320 H 09/13/17 05:13 Creatine Kinase Troponin I NT-Pro-B Natriuret Pep 819 Impressions: Abdomen/Pelvis CT 09/04/17 12:49 IMPRESSION: DIFFUSE SUBCUTANEOUS STRANDING INVOLVING THE ABDOMINAL PANNUS COMPATIBLE WITH CELLULITIS. NO DRAINABLE FLUID COLLECTION/ABSCESS. LEFT-SIDED NEPHROLITHIASIS WITHOUT LOWER URINARY TRACT STONES OR HYDRONEPHROSIS. Chest X-Ray 09/04/17 15:23 IMPRESSION: NO ACUTE RADIOGRAPHIC FINDING IN THE CHEST. MARKED CARDIOMEGALY Chest/Abdomen CTA 09/07/17 10:32 IMPRESSION: Bibasilar atelectasis. No CT evidence of acute pulmonary emboli. Assessment & Plan - Diagnosis (1) Congestive heart failure (CHF) Qualifiers: Heart failure type: unspecified Heart failure chronicity: acute on chronic Qualified Code(s): I50.9 - Heart failure, unspecified Is this a current diagnosis for this admission?: Yes (2) Abdominal wall cellulitis Is this a current diagnosis for this admission?: Yes (3) Dyspnea on exertion Is this a current diagnosis for this admission?: Yes (4) Edema, peripheral Is this a current diagnosis for this admission?: Yes (5) OPAL (obstructive sleep apnea) Is this a current diagnosis for this admission?: Yes (6) Obesity Qualifiers: Obesity type: unspecified obesity type Obesity classification: unspecified obesity classification Is this a current diagnosis for this admission?: Yes (7) Ventricular dysrhythmia Is this a current diagnosis for this admission?: Yes (8) Acute on chronic respiratory failure with hypercapnia Is this a current diagnosis for this admission?: Yes - Notes Notes: Congestive heart failure: Predominantly right-sided from obesity hypoventilation syndrome and pulmonary hypertension with contribution from diastolic dysfunction. Patient will benefit from maintenance diuretics. He would need to improve his pulmonary condition and also lose a lot of weight. Patient has been advised to quit smoking. Abdominal wall cellulitis: Improving. Edema: Improved Sleep apnea syndrome with possible contribution from obesity hypoventilation syndrome: Pulmonary following. Discussed that he would benefit from nightly CPAP/BiPAP therapy. Ventricular dysrhythmia: Currently stable. No sustained tachyarrhythmia noted. Acute on chronic respiratory failure with hypercapnia: Currently stable. - Time Time with patient: Greater than 35 minutes - Patient being discharged home. He has my card. He can follow-up with me if he wishes. Patient was told the importance of quitting smoking and losing weight in addition to following with salt and fluid restriction, daily weighing etc. Medications reviewed and adjusted accordingly: Yes
--- NOTE | 2017-09-14 16:49 | Pulmonary Function Test ---
Pulmonary Function Test Date of Procedure:: 09/13/17 INDICATION:: Dyspnea Referring Provider: Dr. Amalia Drake - Report Spirometry: FVC 3.28 L 59% FEV1 1.95 L 43% FEV1/FVC % 69 predicted 81 FEF 25-75% 1.32 L 30% Impression: Moderate obstructive ventilatory defect with insignificant response to bronchodilator therapy. This in and of itself does not preclude a clinical trial of bronchodilator therapy. Restrictive ventilatory defect is suggested. Restrictive defects cannot be diagnosed on the basis of spirometry alone. Restrictive defects may mask the degree of obstruction.
--- NOTE | 2017-09-15 13:24 | PDOC PROGRESS REPORT ---
Subjective Progress Note for:: 09/09/17 Subjective:: w/o complaints Reason For Visit: NEW ONSET CHF, ABDOMINAL WALL CELLULITIS Physical Exam Vital Signs: Temp Pulse Resp BP Pulse Ox 98.3 F 78 18 149/79 H 94 09/09/17 04:03 09/09/17 04:03 09/09/17 04:20 09/09/17 04:03 09/09/17 04:20 Pulse Oximeter Continuous Start: 09/05/17 17: 15 Freq: RTQ4 Status: Active Document 09/09/17 08:00 JDR (Rec: 09/09/17 09:50 [email or web address]) Pulse Oximetry Assessment Equipment Usage Equipment Standby Continuous SpO2 Machine # 10 Additional RT Notes Other pt out of room for procedure Intake & Output 09/08/17 09/09/17 09/10/17 06:59 06:59 06:59 Intake Total 3947 2986 Output Total 6750 6600 Balance -2803 -2890 Weight 162.794 kg 156.9 kg General appearance: PRESENT: no acute distress, cooperative, disheveled, morbidly obese Head exam: PRESENT: atraumatic, normocephalic Eye exam: PRESENT: conjunctiva pale, EOMI. ABSENT: nystagmus, periorbital swelling, scleral icterus Mouth exam: PRESENT: dry mucosa, neck supple, tongue midline Neck exam: ABSENT: carotid bruit, JVD, lymphadenopathy, thyromegaly, tracheal deviation, tracheostomy Respiratory exam: PRESENT: decreased breath sounds, prolonged expiratory phas, rhonchi, unlabored. ABSENT: retraction, stridor, tachypnea Cardiovascular exam: PRESENT: RRR, +S1, +S2 Pulses: PRESENT: normal radial pulses GI/Abdominal exam: PRESENT: diminished bowel sounds, soft Extremities exam: PRESENT: +1 edema. ABSENT: calf tenderness, clubbing Neurological exam: PRESENT: alert, awake Psychiatric exam: PRESENT: normal mood Skin exam: PRESENT: dry, warm Results Laboratory Results: 09/08/17 05:42 09/08/17 05:42 09/04/17 09/04/17 09/05/17 23:48 23:48 06:08 Creatine Kinase 110 104 Troponin I 0.069 NT-Pro-B Natriuret Pep 09/05/17 09/05/17 09/05/17 06:08 06:08 11:43 Creatine Kinase 84 Troponin I 0.060 NT-Pro-B Natriuret Pep 3770 H 09/05/17 09/06/17 09/07/17 11:43 06:00 05:39 Creatine Kinase Troponin I 0.047 NT-Pro-B Natriuret Pep 2650 H 1620 H Impressions: Abdomen/Pelvis CT 09/04/17 12:49 IMPRESSION: DIFFUSE SUBCUTANEOUS STRANDING INVOLVING THE ABDOMINAL PANNUS COMPATIBLE WITH CELLULITIS. NO DRAINABLE FLUID COLLECTION/ABSCESS. LEFT-SIDED NEPHROLITHIASIS WITHOUT LOWER URINARY TRACT STONES OR HYDRONEPHROSIS. Chest X-Ray 09/04/17 15:23 IMPRESSION: NO ACUTE RADIOGRAPHIC FINDING IN THE CHEST. MARKED CARDIOMEGALY Chest/Abdomen CTA 09/07/17 10:32 IMPRESSION: Bibasilar atelectasis. No CT evidence of acute pulmonary emboli. Assessment & Plan - Diagnosis (1) Acute hypercapnic respiratory failure Is this a current diagnosis for this admission?: Yes Plan: Patient unable to afford trilogy has no insurance portable and BiPAP BiPAP inspiratory of 20 and expiratory of 8 backup rate of 12 FiO2 30% (2) Dyspnea on exertion Is this a current diagnosis for this admission?: Yes Plan: stable (3) Nicotine dependence Is this a current diagnosis for this admission?: Yes Plan: Transdermal nicotine as you are doing (4) OPAL (obstructive sleep apnea) Is this a current diagnosis for this admission?: Yes Plan: Nightly BiPAP oh whenever patient is asleep (5) Obesity Qualifiers: Obesity type: unspecified obesity type Obesity classification: unspecified obesity classification Is this a current diagnosis for this admission?: Yes Plan: May easily result in obesity hypoventilation syndrome further compromising his hypercapnic hypoxemic respiratory failure (6) Pulmonary hypertension Is this a current diagnosis for this admission?: Yes Plan: see cath report
== END 2017-09-13 16:29 | disposition home or self-care (01) | DRG 291 ==
LOC: ER 12:23 → EH 17:55 → 3S 21:19
PROVIDERS: ADMIT Internal Medicine; ATTEND Internal Medicine
PROC: 5A09557 Assistance with Respiratory Ventilation, Greater than 96 Consecutive Hours, Continuous Positive Airway Pressure (ICD-10-PCS; principal; 2017-09-05)
PROC: 3E0F73Z Introduction of Anti-inflammatory into Respiratory Tract, Via Natural or Artificial Opening (ICD-10-PCS; 2017-09-05)
DX: I50.31 Acute diastolic (congestive) heart failure (principal); J96.02 Acute respiratory failure with hypercapnia; J96.22 Acute and chronic respiratory failure with hypercapnia; Z68.41 Body mass index [BMI] 40.0-44.9, adult; E66.2 Morbid (severe) obesity with alveolar hypoventilation; L03.311 Cellulitis of abdominal wall; I27.20 Pulmonary hypertension, unspecified; F17.210 Nicotine dependence, cigarettes, uncomplicated; J45.909 Unspecified asthma, uncomplicated; K44.9 Diaphragmatic hernia without obstruction or gangrene; M19.90 Unspecified osteoarthritis, unspecified site; E83.39 Other disorders of phosphorus metabolism; R47.1 Dysarthria and anarthria; R63.5 Abnormal weight gain; Z86.14 Personal history of Methicillin resistant Staphylococcus aureus infection; Z79.899 Other long term (current) drug therapy; Z91.19 Patient's noncompliance with other medical treatment and regimen; Z82.49 Family history of ischemic heart disease and other diseases of the circulatory system
CPT/HCPCS: 36415; 36600; 71045; 71275; 74177; 78452; 80048; 80053; 80061; 80069; 80202; 82550; 82803; 83036; 83735; 83880; 84100; 84443; 84484; 85025; 85610; 85730; 87040; 93005; 93010; 93017; 93306; 93925; 93970; 94010; 94640; 94660; 94762; 96365; 96366; 96375; 99285; A9500; J0280; J0690; J1650; J1940; J1956; J2785; J3370; J3475; J3490; J7060; J7512; J7614; J7620; Q9969